=== PATIENT | male | born 1955 | race Caucasian/White ===

== ENCOUNTER 2016-08-06 14:33 | Inpatient (IN) ==
[2016-08-06] MEDS ORDERED: methylPREDNISolone SOD SUC 125 MG/2 ML VIAL IV STA (15:09)
[2016-08-06] MEDS ORDERED: ONDANSETRON ODT 4 MG TABLET PO STA (15:09)
[2016-08-06] MEDS ORDERED: FUROSEMIDE 100 MG/10 ML VIAL IV STA (15:09)
[2016-08-06] MEDS ORDERED: ONDANSETRON ODT 4 MG TABLET PO ONE (15:14)
[2016-08-06] MEDS ORDERED: FUROSEMIDE 100 MG/10 ML VIAL ONE (15:14)
[2016-08-06] MEDS ORDERED: methylPREDNISolone SOD SUC 125 MG/2 ML VIAL ONE (15:14)
[2016-08-06] MEDS ORDERED: ALBUTEROL 2.5 MG/3 ML NEB RESP TX SCH (15:30)
[2016-08-06 15:32] LABS: Basophils # 0.1 10*3/uL (0.0-0.2); Basophils % 1.1 % (0.0-0.8); Eosinophils # 0.8 10*3/uL (0.0-0.87); Eosinophils % 7.3 % (0.00-10.9); Hematocrit 49.8 VOL% (42.0-52.0); Hemoglobin 16.8 GM/DL (14.0-18.0); Immature Granulocytes % 0.8 %; Immature Granulocytes Absolute 0.09 #; Lymphocytes # 1.5 10*3/uL (1.4-4.0); Lymphocytes % 13.6 % (21.2-54.2); Mean Corpuscular HGB Conc 33.7 GM/DL (32-36); Mean Corpuscular Hemoglobin 32 PG (27-34); Mean Corpuscular Volume 93.4 FL (87-102); Mean Platelet Volume 9.8 FL (9.6-12.0); Monocytes # 1.2 10*3/uL (0.11-0.8); Monocytes % 10.4 % (1.7-12.7); Neutrophils # 7.5 10*3/uL (1.4-7.4); Neutrophils % 66.8 % (38.7-73.9); Platelet Count 150 T/CUMM (130-400); Red Blood Count 5.33 MC/CUMM (3.8-5.5); Red Cell Distribution Width 13.8 % (9.3-17.3); White Blood Count 11.3 T/CUMM (4-12)
[2016-08-06 15:40] LABS: Alanine Aminotransferase 29 U/L (16-61); Albumin 3.9 G/DL (3.4-5.0); Alkaline Phosphatase 87 U/L (45-117); Aspartate Amino Transferase 21 U/L (0-37); Blood Urea Nitrogen 14 MG/DL (7-18); Calcium 8.6 MG/DL (8.5-10.1); Glucose 96 MG/DL (74-106); Magnesium 2.2 MG/DL (1.8-2.4); Osmolality,Calculated 288.7 MOS/KG (273-304); Potassium 4.7 MMOL/L (3.5-5.1); Sodium 145 MMOL/L (136-145); Total Protein 7.2 G/DL (6.4-8.3); Troponin I Only < 0.015 NG/ML (0.00-0.045)
--- NOTE | 2016-08-06 15:56 | XRay Report ---
Portable chest Date: 08/06/2016 Clinical history: Shortness of breath Comparison: 06/23/2014 Technique: Portable AP sitting chest Findings: The heart is minimally enlarged with calcification in the aortic knob. Progressive parenchymal findings at the lung bases with small pleural effusions. Stable mediastinum with degenerative changes. Impression: Cardiomegaly with mild CHF and small pleural effusions. PROCEDURE INTERPRETED AT [facility] DEPARTMENT OF RADIOLOGY Final Report Signed by: Dr. Sandra Laws
[2016-08-06 17:10] LABS: Apearance,Urine CLEAR (Clear); Bilirubin,Urine Negative (Negative); Blood, Urine Negative (Negative); Glucose,Urine (UA) Negative (Negative); Ketones,Urine Negative (Negative); Mucus,Urine Occasional /LPF (Occasional); Nitrite,Urine Negative (Negative); Protein,Urine Negative; Urine Color Straw (Yellow); Urine Specific Gravity 1.004 (1.001-1.035); Urine Urobilinogen < 2.0 EU/DL (0.2-1.0); WBC,Urine <1 /HPF (0-6)
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
[2016-08-06] MEDS ORDERED: methylPREDNISolone SOD SUC 40 MG/1 ML VIAL IV SCH (17:45)
[2016-08-06] MEDS ORDERED: GLUCAGON 1 MG VIAL IM PRN (17:46)
[2016-08-06] MEDS ORDERED: DEXTROSE 50% 25 GM/50 ML VIAL IV PRN (17:46)
[2016-08-06] MEDS: LEVOFLOXACIN INJ 750 MG in PREMIX 1 EACH IV SCH (18:10)
[2016-08-06] MEDS: PHENYTOIN 100 MG/2 ML VIAL IV SCH (18:11)
[2016-08-06] MEDS: methylPREDNISolone SOD SUC 125 MG/2 ML VIAL IV SCH (18:16)
[2016-08-06] MEDS: INSULIN REGULAR 100 UNIT/ML SUBCUT SCH (18:21)
[2016-08-06] MEDS ORDERED: PROPOFOL 200 MG/20 ML VIAL IV ONE ×2 (18:48→18:57)
[2016-08-06] MEDS ORDERED: PROPOFOL 1,000 MG/100 ML BOTTLE IV ONE (18:48)
[2016-08-06] MEDS ORDERED: SUCCINYLCHOLINE 200 MG/10 ML VIAL ONE (18:52)
[2016-08-06] MEDS ORDERED: SUCCINYLCHOLINE 200 MG/10 ML VIAL IV ONE (18:57)
[2016-08-06] MEDS: PROPOFOL 1,000 MG/100 ML BOTTLE IV SCH ×2 (19:00→23:30)
[2016-08-06] MEDS ORDERED: PHENYTOIN ER 100 MG CAPSULE PO SCH (19:00)
[2016-08-06] MEDS ORDERED: ALBUTEROL/IPRATROPIUM 3 ML NEB RESP TX SCH (19:00)
--- NOTE | 2016-08-06 19:44 | XRay Report ---
Portable chest Date: 08/06/2016 Clinical history: Endotracheal tube placement Comparison: 08/06/2016 Technique: Portable AP supine chest Findings: The heart remains minimally enlarged. Endotracheal tube is in satisfactory position. Decreased diffuse parenchymal findings at the lung bases with minimal relative elevation of the right hemidiaphragm. Stable mediastinum and osseous structures. Impression: The endotracheal tube is in satisfactory position. Reduced atelectasis/edema at the lung bases. PROCEDURE INTERPRETED AT [facility] DEPARTMENT OF RADIOLOGY Final Report Signed by: Dr. Sandra Laws
[2016-08-06] MEDS ORDERED: SODIUM CHLORIDE 0.9% 500 ML IV ONE (19:58)
[2016-08-06] MEDS: ALBUTEROL/IPRATROPIUM 3 ML NEB RESP TX SCH ×2 (20:26→22:59)
[2016-08-06 20:51] LABS: ABG Base Excess 8.9 MMOL/L (-2.5-2.5); ABG HCO3 36.5 MMOL/L (20-26); ABG Oxygen Saturation 98.6 % (95-100); ABG PCO2 60.4 MM HG (35-48); ABG PH 7.399 (7.35-7.45); ABG PO2 132.4 MM HG (80-95); ABG TCO2 38.3 MMOL/L (23-27); Pt O2 Delivery Device Ventilator
--- NOTE | 2016-08-06 21:17 | Ultrasound Report ---
Exam: Bilateral lower extremity venous Doppler ultrasound Comparison: 06/18/2014 Clinical history: CHF, shortness of breath Technique: Duplex scan of the lower extremity veins using B-mode/grayscale scaled imaging and Doppler spectral analysis and color flow. Findings: Major venous structures of the lower extremities demonstrate a normal course and caliber. Normal color-flow study and spectral analysis. There is normal compression and augmentation of bilateral common femoral, superficial femoral and popliteal veins. The proximal bilateral greater saphenous veins appear to be patent. Impression: No evidence to suggest deep venous thrombosis within either lower extremity. Ultrasound images were captured and stored. PROCEDURE INTERPRETED AT [facility] DEPARTMENT OF RADIOLOGY Final Report Signed by: Dr. Sandra Laws
[2016-08-06] MEDS ORDERED: SODIUM CHLORIDE 0.9% 1,000 ML IV SCH (23:00)
[2016-08-07] MEDS: INSULIN REGULAR 100 UNIT/ML SUBCUT SCH ×4 (00:25→18:24)
[2016-08-07] MEDS: methylPREDNISolone SOD SUC 125 MG/2 ML VIAL IV SCH ×3 (00:26→12:21)
[2016-08-07] MEDS: SODIUM CHLORIDE 0.9% 1,000 ML IV SCH ×2 (03:35→17:08)
[2016-08-07 03:49] LABS: ABG Base Excess 6.4 MMOL/L (-2.5-2.5); ABG HCO3 30.2 MMOL/L (20-26); ABG PCO2 57.6 MM HG (35-48); ABG PH 7.379 (7.35-7.45); ABG TCO2 28.5 MMOL/L (23-27); Allen Test Positive; Pt O2 Delivery Device Ventilator
[2016-08-07] MEDS: ALBUTEROL/IPRATROPIUM 3 ML NEB RESP TX SCH ×6 (03:56→23:37)
[2016-08-07] MEDS: PROPOFOL 1,000 MG/100 ML BOTTLE IV SCH ×7 (04:20→22:30)
--- NOTE | 2016-08-07 07:53 | XRay Report ---
Portable chest Date: 08/07/2016 Clinical history: Intubation Comparison: 08/06/2016 Technique: Portable AP sitting chest Findings: The heart is minimally enlarged with stable support devices. Persistent diffuse parenchymal findings at the lung bases with stable mediastinum and osseous structures. Impression: No significant change in the appearance of the chest when compared to the previous exam. PROCEDURE INTERPRETED AT [facility] DEPARTMENT OF RADIOLOGY Final Report Signed by: Dr. Sandra Laws
--- NOTE | 2016-08-07 08:18 | EKG Report ---
Stationary ECG Study [facility] ER Test Date: 08/06/2016 3:20:27 PM Pat Name: PRECIOUS BLAKE Department: Room: 119 Gender: M Molder Fitting: : 1955 Requested by: Matt Cano Order Number: [id number] Reading MD: RICH STEPHENS Intervals Bryant Rate: 104 P: 80 [place]: 132 QRS: 244 QRSD: 88 T: 74 QT: 325 QTc: 385 Interpretive Statements SINUS TACHYCARDIA RIGHT AXIS DEVIATION INFERIOR MYOCARDIAL INFARCTION, PROBABLY OLD POOR R-WAVE PROGRESSION Electronically Signed On 08-07-16 12:04:40 CDT by RICH STEPHENS [email or web address]
[2016-08-07] MEDS ORDERED: THEOPHYLLINE ER (24 HR) 400 MG TABLET PO SCH (09:00)
[2016-08-07] MEDS ORDERED: PHENYTOIN ER 100 MG CAPSULE PO SCH (09:00)
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
[2016-08-07] MEDS: HYDROmorphone 2 MG/1 ML VIAL IV PRN ×3 (09:22→14:58)
[2016-08-07] MEDS: PANTOPRAZOLE 40 MG VIAL IV SCH (09:23)
[2016-08-07] MEDS: NICOTINE 21 MG/24 HR PATCH TRANSDERM SCH (09:23)
[2016-08-07 09:40] LABS: Basophils % 0.1 % (0.0-0.8); Eosinophils % 0.1 % (0.00-10.9); Hematocrit 45.2 VOL% (42.0-52.0); Hemoglobin 14.9 GM/DL (14.0-18.0); Immature Granulocytes % 0.4 %; Immature Granulocytes Absolute 0.03 #; Lymphocytes # 0.5 10*3/uL (1.4-4.0); Lymphocytes % 6.8 % (21.2-54.2); Mean Corpuscular Hemoglobin 31 PG (27-34); Mean Platelet Volume 9.7 FL (9.6-12.0); Monocytes # 0.4 10*3/uL (0.11-0.8); Monocytes % 4.8 % (1.7-12.7); Neutrophils # 6.7 10*3/uL (1.4-7.4); Neutrophils % 87.8 % (38.7-73.9); Platelet Count 114 T/CUMM (130-400); Red Blood Count 4.76 MC/CUMM (3.8-5.5); Red Cell Distribution Width 13.8 % (9.3-17.3); White Blood Count 7.7 T/CUMM (4-12)
--- NOTE | 2016-08-07 10:00 | Hospitalist Progress Note ---
Assessment and Plan (1) Respiratory failure, [id number] Status: Acute Assessment and plan: The patient is admitted to the hospital with exacerbation of COPD causing CO2 retention and hypoxemia. The patient has begun to improve on the ventilator. Dr. Souza is following him for pulmonary care and will make ventilator adjustments. The patient continues on IV antibiotics and inhaled beta agonist nebulized breathing therapies. Current Visit: Yes Qualifiers: Respiratory failure complication: hypoxia and hypercapnia Qualified Code(s) : J96.21 - Acute and chronic respiratory failure with hypoxia; J96.22 - Acute and chronic respiratory failure with hypercapnia (2) COPD exacerbation Status: Chronic Current Visit: Yes (3) Seizure disorder Status: Acute Current Visit: Yes Hospitalist: Subjective Interval history: The patient was admitted to the hospital with COPD exacerbation and respiratory failure. The patient continues on mechanical ventilation today. Gas exchange is improving and goal CO2 has been met. I coordinated care with Dr. Souza today. Exam - Constitutional Vitals: Period Temp Pulse Resp BP Sys/Centeno Pulse Ox Last 24 Hr 96.7 F-99.1 F 57-118 12-20 69-163/40-102 85-100 Exam: Constitutional System: Mild distress. No tremulousness. Orally intubated and mechanically ventilated Head: Normocephalic, atraumatic. Ears, Nose and Throat System: No evidence of Otitis or Mastoiditis. No epistaxis or discharge Eyes System: Pupils equal, round, and reactive. Extraocular muscles intact. Neck: Supple, without adenopathy, No jugular venous distention. No thyromegaly , neck mass, or prior surgery apparent. Respiratory System: Chest clear to auscultation. There is significant air trapping Cardiovascular System: Heart with regular rate and rhythm. No murmur. GI System: Abdomen soft, nontender. Normo active bowel sounds present. Musculoskeletal System: limbs with no pedal edema. Full distal pulses. Results - Labs CBC & BMP: 08/07/16 09:27 08/06/16 14:56 Lab Results: I have reviewed the past 24 hour labs Quality Measures - VTE Deep Vein Thrombosis/Pulmonary Embolism Present on Admission: No
[2016-08-07 10:01] LABS: Bilirubin,Total 0.5 MG/DL (0.2-1.0); Calcium 7.1 MG/DL (8.5-10.1); Osmolality,Calculated 295.4 MOS/KG (273-304); Potassium 3.4 MMOL/L (3.5-5.1); Risk Ratio 3.44; Total Protein 5.7 G/DL (6.4-8.3); VLDL CHOLESTEROL 26.8 MG/DL
[2016-08-07 10:12] LABS: Free T4 (Free Thyroxine) 0.99 NG/DL (0.76-1.46); Thyroid Stimulating Hormone 0.503 uIU/ml (0.358-3.74)
[2016-08-07] MEDS ORDERED: AMINOPHYLLINE 250 MG in SODIUM CHLORIDE 0.9% 100 ML IV ONE (11:07)
[2016-08-07] MEDS ORDERED: methylPREDNISolone SOD SUC 40 MG/1 ML VIAL ONE (12:23)
[2016-08-07] MEDS: methylPREDNISolone SOD SUC 40 MG/1 ML VIAL IV SCH ×2 (12:26→17:58)
--- NOTE | 2016-08-07 12:30 | ECHO Report ---
[facility] Exam Date: 08/07/2016 10:15 Referring Physician: Technologist: Elaine Kitchen RDCS Age: 61 Ht (in): Wt (lb): Gender: M Exam Location: [facility] Echo Indications: Acute and chronic respiratory failure with hypoxia, Shortness of breath, COPD, Chest pain, unspecified, KANDICE, Seizures, Nicotine dependence, cigarettes, uncomplicated BP: / HR: Rhythm: Sinus Technical Quality: Fair IMPRESSIONS EF 55%. Grade I/IV diastolic dysfunction (abnormal relaxation filling pattern), normal to mildly elevated filling pressures. Mildly increased right ventricular size. Moderately increased right atrial size. Moderately increased left atrial size. Morphologically normal mitral valve. No mitral valve regurgitation. Aortic valve sclerosis. No aortic valve regurgitation. Moderate tricuspid valve regurgitation. PAP 50-55 mmHG. Pulmonic valve not well visualized. Normal pericardium without effusion. Normal ascending aorta dimension. MEASUREMENTS (Male / Female) Normal Values 2D ECHO LV Diastolic Diameter PLAX 4.8 cm 4.2 - 5.9 / 3.9 - 5.3 cm LV Systolic Diameter PLAX 3.7 cm LV Fractional Shortening PLAX 24.5 % IVS Diastolic Thickness 1.3 cm 0.6 - 1.0 / 0.6 - 0.9 cm LVPW Diastolic Thickness 1.3 cm 0.6 - 1.0 / 0.6 - 0.9 cm RV Internal Dim ED PLAX 3.7 cm Aortic Root Diameter 3.2 cm LA Systolic Diameter LX 4.7 cm 3.0 - 4.0 / 2.7 - 3.8 cm DOPPLER TR Peak Velocity 297.0 cm/s TR Peak Gradient 35.3 mmHg FINDINGS Left Ventricle EF 55%.Grade I/IV diastolic dysfunction (abnormal relaxation filling pattern), normal to mildly elevated filling pressures. Right Ventricle Mildly increased right ventricular size. Right Atrium Moderately increased right atrial size. Left Atrium Moderately increased left atrial size. Mitral Valve Morphologically normal mitral valve. No mitral valve regurgitation. Aortic Valve Aortic valve sclerosis. No aortic valve regurgitation. Tricuspid Valve Morphologically normal tricuspid valve. Moderate tricuspid valve regurgitation. PAP 50-55 mmHG. Pulmonic Valve Pulmonic valve not well visualized. Pericardium Normal pericardium without effusion. Aorta Normal ascending aorta dimension. Alverto Basil (Electronically Signed) Final Date: 07 August 2016 12:29
[2016-08-07] MEDS: AMINOPHYLLINE 500 MG in SODIUM CHLORIDE 0.9% 480 ML IV SCH (14:42)
[2016-08-07] MEDS: PHENYTOIN 100 MG/2 ML VIAL IV SCH (17:31)
[2016-08-07] MEDS: LEVOFLOXACIN INJ 750 MG in PREMIX 1 EACH IV SCH (17:31)
[2016-08-08] MEDS: INSULIN REGULAR 100 UNIT/ML SUBCUT SCH ×5 (01:06→23:49)
[2016-08-08] MEDS: methylPREDNISolone SOD SUC 40 MG/1 ML VIAL IV SCH ×5 (01:07→23:57)
[2016-08-08] MEDS: PROPOFOL 1,000 MG/100 ML BOTTLE IV SCH ×6 (01:09→18:39)
[2016-08-08] MEDS: ALBUTEROL/IPRATROPIUM 3 ML NEB RESP TX SCH ×6 (03:44→23:46)
[2016-08-08 03:49] LABS: Allen Test Positive; Pt O2 Delivery Device Ventilator
[2016-08-08 03:50] LABS: ABG Base Excess 5.6 MMOL/L (-2.5-2.5); ABG HCO3 29.5 MMOL/L (20-26); ABG Oxygen Saturation 98.8 % (95-100); ABG PCO2 55.5 MM HG (35-48); ABG PH 7.381 (7.35-7.45); ABG TCO2 27.6 MMOL/L (23-27)
[2016-08-08] MEDS: SODIUM CHLORIDE 0.9% 1,000 ML IV SCH ×2 (08:22→20:19)
[2016-08-08] MEDS: NICOTINE 21 MG/24 HR PATCH TRANSDERM SCH (08:43)
[2016-08-08] MEDS: PANTOPRAZOLE 40 MG VIAL IV SCH (08:43)
--- NOTE | 2016-08-08 08:46 | XRay Report ---
History: Mechanical ventilation. COPD. CHF Date: 08/08/2016 Study: Chest x-ray AP portable Comparison exam: 08/07/2016 The supporting tubes are unchanged. There is stable mild cardiomegaly. The mediastinal contour is unchanged. The pulmonary vasculature is not engorged. The study was performed in shallow inspiration. There is some residual mild strandy atelectatic change in the right lung base, though this is slightly improved. There is no interval worsening. There is no gross pleural effusion. Osseous structures are similar. Impression: Mildly improved aeration in the right lung base with some persistent mild right basilar atelectasis. Otherwise unchanged PROCEDURE INTERPRETED AT [facility] DEPARTMENT OF RADIOLOGY Final Report Signed by: Dr. Christi Nelson
--- NOTE | 2016-08-08 08:48 | Hospitalist Progress Note ---
Assessment and Plan (1) Respiratory failure, [id number] Status: Acute Assessment and plan: The patient is admitted to the hospital with exacerbation of COPD causing CO2 retention and hypoxemia. The patient has begun to improve on the ventilator. Dr. Souza is following him for pulmonary care and will make ventilator adjustments. The patient continues on IV antibiotics and inhaled beta agonist nebulized breathing therapies. Current Visit: Yes Qualifiers: Respiratory failure complication: hypoxia and hypercapnia Qualified Code(s) : J96.21 - Acute and chronic respiratory failure with hypoxia; J96.22 - Acute and chronic respiratory failure with hypercapnia (2) COPD exacerbation Status: Chronic Current Visit: Yes (3) Seizure disorder Status: Acute Current Visit: Yes Hospitalist: Subjective Interval history: This is a 61-year-old man who was admitted on August 06 with severe COPD exacerbation. Upon arrival to the critical care area the patient developed progressive respiratory failure with hypercarbia requiring intubation. The patient's chest x-ray shows chronic scarring, COPD, and some cardiomegaly. Infiltrates are somewhat fluffy and diffuse. The patient continues on therapy for COPD including IV steroids, IV antibiotic, beta agonist nebulized breathing therapy, and intravenous theophylline. The patient remains on the ventilator as managed by the basin finish operator tig welder. Exam - Constitutional Vitals: Period Temp Pulse Resp BP Sys/Centeno Pulse Ox Last 24 Hr 96.4 F-97.2 F 14-66 8-61 87-121/53-80 92-100 Exam: Constitutional System: Mild distress. No tremulousness. Orally intubated and mechanically ventilated Head: Normocephalic, atraumatic. Ears, Nose and Throat System: No evidence of Otitis or Mastoiditis. No epistaxis or discharge Eyes System: Pupils equal, round, and reactive. Extraocular muscles intact. Neck: Supple, without adenopathy, No jugular venous distention. No thyromegaly , neck mass, or prior surgery apparent. Respiratory System: Chest clear to auscultation. There is significant air trapping Cardiovascular System: Heart with regular rate and rhythm. No murmur. GI System: Abdomen soft, nontender. Normo active bowel sounds present. Musculoskeletal System: limbs with no pedal edema. Full distal pulses. Results - Labs CBC & BMP: 08/07/16 09:27 08/07/16 08:25 Lab Results: I have reviewed the past 24 hour labs Quality Measures - VTE Deep Vein Thrombosis/Pulmonary Embolism Present on Admission: No
[2016-08-08] MEDS: POTASSIUM CHLORIDE 20 MEQ/15 ML UDCUP PER TUBE SCH ×3 (09:18→17:50)
--- NOTE | 2016-08-08 12:40 | Pulmonology Progress Note ---
<Sonido Kaur - Last Filed: 08/08/16 12:40> Exam (Progress Note) - Constitutional Vitals: Period Temp Pulse Resp BP Sys/Centeno Pulse Ox Last 24 Hr 96.4 F-97.2 F 14-67 8-61 87-121/53-80 92-100 Results - Labs CBC & BMP: 08/07/16 09:27 08/07/16 08:25 <Codey Horton - Last Filed: 08/08/16 18:19> Pulmonary - PN: Subj Interval history: This is a 61-year-old white male whom I saw in pulmonary consultation on 2016. He had been admitted through the emergency room profoundly short of breath and required intubation mechanical ventilation. My impressions were. 1. Acute on chronic respiratory failure for oxygen and carbon dioxide requiring intubation mechanical ventilation 2. History of obstructive sleep apnea 3. History of trach. Watch for tracheal stenosis. 4. COPD. 5. Tobacco abuse. Patient has refused to quit smoking. 6. Past history of nonischemic cardiomyopathy 2012. Evaluated by Dr. Chris Figueroa and followed by Dr. Andrew Huffman next #10 history of lower extremity surgery. Look for deep venous thrombophlebitis. 6.1. Echocardiogram done 08/06/2016 shows an ejection fraction of 55% with a grade 1/6 diastolic dysfunction. There is mild increase in right ventricular size and there is a moderate increase in the right atrial size. The left atrium is moderately increased in size. No mitral regurgitation. No aortic valve regurgitation. Moderate increased tricuspid regurgitation. Pulmonary artery pressures are 50-55 mmHg. 7. History of seizure disorder 8. See past history 08/08/2016. Today's chest x-ray shows cardiomegaly. Pulmonary arteries are top normal. Mediastinum is normal. There is some minimal bibasilar atelectasis. Lung morales are otherwise clear with no masses infiltrates or pulmonary edema. ABGs on mechanical ventilation with FiO2 of 50% show a pH 7.38, PCO2 55.5, PO2 122.0 and a bicarb of 29.3. Patient is on weaning protocol. And then reduce his FiO2 to 35%. I am also going to decrease the rate of mechanical ventilation I am going to allow his PCO twos to settle down around 55-60 which is what it will take him to get off the ventilator. No lab was ordered for today. There are no positive cultures. Patient's on IV Aminophyllin. His theophylline level is 5.3. Today I am going to add Diamox 250 mg IV push every 8 hours.He is on Solu-Medrol 80 IV push every 6 hours. Patient is also on Dilantin. There is a history of seizure disorder. Physical exam. Vital signs. See below Neurologic and psychiatric. Impossible. Patient is sedated. Face. Symmetrical. Lips and tongue are normal. Neck. Symmetrical. No meningismus. Lymphatics. No submandibular cervical supraclavicular or epitrochlear adenopathy Chest. Loose large airway congestion Heart. No gallop Abdomen. Nondistended. Only rare bowel sounds Lower extremities. No obvious deep venous thrombophlebitis. The remainder the physical exam is noncontributory Plan. 1. Weaning protocol. Plan to let the patient's PCO twos settled into the mid 50s since that is where he most likely lives. 08/08/2016, decrease FiO2. 2. Physical therapy protocol. 3. Deep venous thrombophlebitis prevention protocol 4. Agree with antibiotics 5. Cold agglutinins. 6. Legionella titer 7. Sputum for Gram stain culture and sensitivity. 8. Once he is off the ventilator this patient will probably need evaluation pulmonary function test. Specifically with a past history of trach we need to make sure he does not have tracheal stenosis. 9. See orders 10. 08/08/2016. Start Diamox 250 mg IV piggyback every 12. Continue to monitor theophylline level. Need to monitor electrolytes and other lab tests. Exam (Progress Note) - Constitutional Vitals: Period Temp Pulse Resp BP Sys/Centeno Pulse Ox Last 24 Hr 96.4 F-98.7 F 14-103 11-61 87-130/55-87 95-100 Results - Labs CBC & BMP: 08/07/16 09:27 08/07/16 08:25
[2016-08-08] MEDS: AMINOPHYLLINE 500 MG in SODIUM CHLORIDE 0.9% 480 ML IV SCH (15:04)
[2016-08-08] MEDS: PHENYTOIN 100 MG/2 ML VIAL IV SCH (17:50)
[2016-08-08] MEDS: LEVOFLOXACIN INJ 750 MG in PREMIX 1 EACH IV SCH (17:51)
[2016-08-09] MEDS: HYDROmorphone 2 MG/1 ML VIAL IV PRN ×4 (00:40→21:10)
[2016-08-09] MEDS: PROPOFOL 1,000 MG/100 ML BOTTLE IV SCH ×6 (02:48→23:42)
[2016-08-09] MEDS: ALBUTEROL/IPRATROPIUM 3 ML NEB RESP TX SCH ×6 (03:03→22:56)
[2016-08-09 03:07] LABS: ABG HCO3 26.1 MMOL/L (20-26); ABG Oxygen Saturation 97.3 % (95-100); ABG PCO2 45.2 MM HG (35-48); ABG PH 7.393 (7.35-7.45); ABG TCO2 23.2 MMOL/L (23-27); Allen Test Positive; Pt O2 Delivery Device Ventilator
[2016-08-09 05:10] LABS: Basophils % 0.1 % (0.0-0.8); Eosinophils % 0.1 % (0.00-10.9); Hematocrit 47.8 VOL% (42.0-52.0); Hemoglobin 15.8 GM/DL (14.0-18.0); Immature Granulocytes % 0.5 %; Immature Granulocytes Absolute 0.06 #; Lymphocytes # 0.6 10*3/uL (1.4-4.0); Lymphocytes % 4.5 % (21.2-54.2); Mean Corpuscular HGB Conc 33.1 GM/DL (32-36); Mean Corpuscular Hemoglobin 32 PG (27-34); Mean Platelet Volume 11.8 FL (9.6-12.0); Monocytes # 0.5 10*3/uL (0.11-0.8); Monocytes % 3.6 % (1.7-12.7); Neutrophils # 11.5 10*3/uL (1.4-7.4); Neutrophils % 91.2 % (38.7-73.9); Red Blood Count 4.98 MC/CUMM (3.8-5.5); Red Cell Distribution Width 14.4 % (9.3-17.3); White Blood Count 12.5 T/CUMM (4-12)
[2016-08-09 05:13] LABS: Platelet Count 62 T/CUMM (130-400)
[2016-08-09] MEDS: INSULIN REGULAR 100 UNIT/ML SUBCUT SCH ×4 (05:25→23:43)
[2016-08-09 05:26] LABS: Calcium 8.3 MG/DL (8.5-10.1); Osmolality,Calculated 293.7 MOS/KG (273-304); Phosphorous 2.7 MG/DL (2.5-4.9); Potassium 4.4 MMOL/L (3.5-5.1); Prealbumin 29.5 MG/DL (20-40)
[2016-08-09 05:31] LABS: Lymphocytes 3 % (20-55); Segmented Neutrophils 93 % (50-85); Total Cells Counted 100
[2016-08-09 05:32] LABS: Macrocytosis Slight; Platelet Estimate Decreased
[2016-08-09] MEDS: methylPREDNISolone SOD SUC 40 MG/1 ML VIAL IV SCH ×4 (05:39→23:52)
[2016-08-09 05:47] LABS: Calcium 8.4 MG/DL (8.5-10.1); Magnesium 2.3 MG/DL (1.8-2.4); Osmolality,Calculated 294.6 MOS/KG (273-304); Potassium 4.4 MMOL/L (3.5-5.1)
--- NOTE | 2016-08-09 08:11 | XRay Report ---
Exam: XR chest 1V portable Indication: Intubated Comparison study: 08/08/2016 Findings: Endotracheal tube is in similar position. Esophagogastric tube travels below the [id number]. There has been slight worsening of patchy basilar opacities when compared to prior. There is no pneumothorax. Impression: Slight worsening of basilar opacities may represent atelectasis although developing infiltrates are not excluded. Stable position of esophagogastric and endotracheal tubes. PROCEDURE INTERPRETED AT [facility] DEPARTMENT OF RADIOLOGY Final Report Signed by: Garo Renee
[2016-08-09] MEDS: PANTOPRAZOLE 40 MG VIAL IV SCH (09:42)
[2016-08-09] MEDS: NICOTINE 21 MG/24 HR PATCH TRANSDERM SCH (09:43)
[2016-08-09] MEDS: SODIUM CHLORIDE 0.9% 1,000 ML IV SCH ×2 (09:53→21:44)
--- NOTE | 2016-08-09 11:58 | Pulmonology Progress Note ---
Pulmonary - PN: Subj Interval history: Sonido Kaur, ANP-BC, GNP-BC, acting as scribe for Dr. Codey Horton This is a 61-year-old white male who we saw in initial pulmonary consultation on 08/07/2016. He had been admitted through the emergency room profoundly short of breath and required intubation and mechanical ventilation. At the time of our initial consult, our impressions were: 1. Acute on chronic respiratory failure for oxygen and carbon dioxide requiring intubation mechanical ventilation 2. History of obstructive sleep apnea 3. History of trach. Watch for tracheal stenosis. 4. COPD. 5. Tobacco abuse. Patient has refused to quit smoking. 6. Past history of nonischemic cardiomyopathy 2012. Evaluated by Dr. Chris Figueroa and followed by Dr. Andrew Huffman next #10 history of lower extremity surgery. Look for deep venous thrombophlebitis. 7. Echocardiogram done 08/06/2016 shows an ejection fraction of 55% with a grade 1/6 diastolic dysfunction. There is mild increase in right ventricular size and there is a moderate increase in the right atrial size. The left atrium is moderately increased in size. No mitral regurgitation. No aortic valve regurgitation. Moderate increased tricuspid regurgitation. Pulmonary artery pressures are 50-55 mmHg. 8. History of seizure disorder 9. See past history 08/08/2016. Today's chest x-ray shows cardiomegaly. Pulmonary arteries are top normal. Mediastinum is normal. There is some minimal bibasilar atelectasis. Lung morales are otherwise clear with no masses infiltrates or pulmonary edema. ABGs on mechanical ventilation with FiO2 of 50% show a pH 7.38, PCO2 55.5, PO2 122.0 and a bicarb of 29.3. Patient is on weaning protocol. And then reduce his FiO2 to 35%. I am also going to decrease the rate of mechanical ventilation I am going to allow his PCO twos to settle down around 55-60 which is what it will take him to get off the ventilator. No lab was ordered for today. There are no positive cultures. Patient's on IV Aminophyllin. His theophylline level is 5.3. Today I am going to add Diamox 250 mg IV push every 8 hours.He is on Solu-Medrol 80 IV push every 6 hours. Patient is also on Dilantin. There is a history of seizure disorder. 08/09/2016. Patient's nurse reports that he has been more aggressive and combative this morning. He has remained on the ventilator and presently was on stage II of the weaning protocol however, in light of this, we will asked that he be placed on a T-tube and ABGs be drawn at 1 PM. Those results will be called to us. Patient's chest x-ray shows bibasilar atelectasis. He has pulmonary hypertension as evidenced by his echocardiogram. We will start Norvasc 5 mg p.o. daily today. The patient remains on IV Aminophyllin. On chest exam he continues to have mild high-pitched peripheral wheezes. Theophylline level today is 5.7. We did not adjust Aminophyllin dose. He is getting daily theophylline levels. This patient's platelets have dropped to 62, 000. On review of his medications, no obvious culprit is seen. We will consult hematology for evaluation of this. Medications have been reviewed. Start Norvasc 5 mg p.o. daily for pulmonary hypertension. Labs been reviewed. White count is 12,500 with 91.2% segs; H&H 15.8/47.8; platelet count 62,000 (thrombocytopenia); creatinine 0.70, BUN 18, sodium 145, potassium 4.4, magnesium 2.3; BNP 103; theophylline level 5.7 ABGs this morning on an FiO2 of 35% and on mechanical ventilation showed a pH of 7.393, PCO2 45.2, PO2 89.0, bicarb 26.1, and oxygen saturation 97.3%. Exam (Progress Note) - Constitutional Vitals: Period Temp Pulse Resp BP Sys/Centeno Pulse Ox Last 24 Hr 97.1 F-98.7 F 54-103 11-20 104-140/66-89 93-100 Exam: Chest... See above; also with loose large airway congestion Heart no gallop Abdomen is nondistended with rare bowel sounds Extremities with nothing to suggest acute deep venous thrombophlebitis Psychiatric awake and aggressive Neurologic moves all 4 extremities Plan: Place the patient on T-tube and get ABGs at 1 PM. These will be called us. Consult hematology regarding his thrombocytopenia. Start Norvasc 5 mg p.o. daily for pulmonary hypertension. Continue IV Aminophyllin with daily theophylline levels. Chest x-ray, labs, and ABGs in the morning. See orders. Results - Labs CBC & BMP: 08/09/16 04:02 08/09/16 04:02
[2016-08-09] MEDS: amLODIPine 5 MG TABLET PO SCH (12:08)
--- NOTE | 2016-08-09 13:48 | Hospitalist Progress Note ---
Assessment and Plan - Time spent with patient Time spent with patient: Greater than 30 minutes (1) COPD exacerbation Status: Acute Assessment and plan: Continue ongoing treatment per Pulmonary recommendation. Current Visit: Yes (2) Respiratory failure, [id number] Status: Acute Assessment and plan: Patient remains intubated but not sedated. Monitor ABG p.r.n. Current Visit: Yes Qualifiers: Respiratory failure complication: hypoxia and hypercapnia Qualified Code(s) : J96.21 - Acute and chronic respiratory failure with hypoxia; J96.22 - Acute and chronic respiratory failure with hypercapnia (3) Seizure disorder Status: Acute Assessment and plan: Stable Current Visit: Yes (4) Thrombocytopenia Status: Acute Assessment and plan: monitor. No bleeding episodes now. Pulmonary has consulted Hematology. Follow Hematology recommendations. Current Visit: Yes (5) Pulmonary hypertension Status: Acute Assessment and plan: continue with Norvasc. Current Visit: Yes (6) History of obstructive sleep apnea Status: Acute Current Visit: Yes Hospitalist: Subjective Interval history: Patient seen and examined in the ICU. Occasionally gets agitated according to the nurse, and then his blood pressures climb up. He denies having any chest pain. Still intubated. ROS: 10-point review of systems was done and was negative except as mentioned above. Exam - Constitutional Vitals: Period Temp Pulse Resp BP Sys/Centeno Pulse Ox Last 24 Hr 97.3 F-98.7 F 54-115 8-23 104-140/70-94 93-100 General appearance: over weight - Eye Eye exam: Present: EOMI. Absent: periorbital swelling Pupils: Present: SNADIE - Neck Neck exam: Absent: lymphadenopathy - Respiratory Respiratory exam: Present: rhonchi - Cardiovascular Cardiovascular exam: Absent: diastolic murmur, systolic murmur - GI/Abdominal GI/Abdominal exam: Present: normal bowel sounds - Extremities Exam Extremities exam: Absent: edema - Neurological Exam Neurological exam: Present: alert, oriented X3 - Psychiatric Psychiatric exam: Present: normal mood Results - Labs CBC & BMP: 08/09/16 04:02 08/09/16 04:02 Quality Measures - VTE Deep Vein Thrombosis/Pulmonary Embolism Present on Admission: No
[2016-08-09] MEDS: AMINOPHYLLINE 500 MG in SODIUM CHLORIDE 0.9% 480 ML IV SCH (14:13)
[2016-08-09] MEDS: PHENYTOIN 100 MG/2 ML VIAL IV SCH (17:46)
[2016-08-09] MEDS: LEVOFLOXACIN INJ 750 MG in PREMIX 1 EACH IV SCH (17:46)
[2016-08-10] MEDS: PROPOFOL 1,000 MG/100 ML BOTTLE IV SCH (02:34)
[2016-08-10] MEDS: HYDROmorphone 2 MG/1 ML VIAL IV PRN (03:02)
[2016-08-10] MEDS: ALBUTEROL/IPRATROPIUM 3 ML NEB RESP TX SCH ×5 (03:14→20:46)
[2016-08-10 03:20] LABS: ABG Base Excess -2.7 MMOL/L (-2.5-2.5); ABG HCO3 24.3 MMOL/L (20-26); ABG Oxygen Saturation 95.9 % (95-100); ABG PCO2 50.6 MM HG (35-48); ABG PO2 85.2 MM HG (80-95); ABG TCO2 25.9 MMOL/L (23-27); Allen Test Positive; Pt O2 Delivery Device Ventilator
--- NOTE | 2016-08-10 04:11 | Pulmonology Progress Note ---
Pulmonary - PN: Subj Interval history: This is a 61-year-old white male whom I saw in pulmonary consultation on 2016. He had been admitted through the emergency room profoundly short of breath and required intubation mechanical ventilation. My impressions were. 1. Acute on chronic respiratory failure for oxygen and carbon dioxide requiring intubation mechanical ventilation 2. History of obstructive sleep apnea 3. History of trach. Watch for tracheal stenosis. 4. COPD. 5. Tobacco abuse. Patient has refused to quit smoking. 6. Past history of nonischemic cardiomyopathy 2012. Evaluated by Dr. Chris Figueroa and followed by Dr. Andrew Huffman next #10 history of lower extremity surgery. Look for deep venous thrombophlebitis. 6.1. Echocardiogram done 08/06/2016 shows an ejection fraction of 55% with a grade 1/6 diastolic dysfunction. There is mild increase in right ventricular size and there is a moderate increase in the right atrial size. The left atrium is moderately increased in size. No mitral regurgitation. No aortic valve regurgitation. Moderate increased tricuspid regurgitation. Pulmonary artery pressures are 50-55 mmHg. 7. History of seizure disorder 8. See past history 08/08/2016. Today's chest x-ray shows cardiomegaly. Pulmonary arteries are top normal. Mediastinum is normal. There is some minimal bibasilar atelectasis. Lung morales are otherwise clear with no masses infiltrates or pulmonary edema. ABGs on mechanical ventilation with FiO2 of 50% show a pH 7.38, PCO2 55.5, PO2 122.0 and a bicarb of 29.3. Patient is on weaning protocol. And then reduce his FiO2 to 35%. I am also going to decrease the rate of mechanical ventilation I am going to allow his PCO twos to settle down around 55-60 which is what it will take him to get off the ventilator. No lab was ordered for today. There are no positive cultures. Patient's on IV Aminophyllin. His theophylline level is 5.3. Today I am going to add Diamox 250 mg IV push every 8 hours.He is on Solu-Medrol 80 IV push every 6 hours. Patient is also on Dilantin. There is a history of seizure disorder. 08/10/2016. This patient had a T-tube trial on 08/09/2016. He was combative and refused to cooperate. This morning he indicates he is willing to cooperate. I placed him on a T-tube and will check his blood gases in about an hour. In the past his PCO2 has been approximately 60 when he was extubated. I anticipate that he will be at this range today. ABGs on mechanical ventilation with an FiO2 35% show a pH 7.30, PCO2 50.6, PO2 of 85.2 and a bicarb of 24. Chest x- ray shows bibasilar atelectasis. There are no positive cultures. This morning' s lab is pending. Physical exam. Vital signs. See below Neurologic and psychiatric. Impossible. Patient is sedated. Face. Symmetrical. Lips and tongue are normal. Neck. Symmetrical. No meningismus. Lymphatics. No submandibular cervical supraclavicular or epitrochlear adenopathy Chest. Loose large airway congestion Heart. No gallop Abdomen. Nondistended. Only rare bowel sounds Lower extremities. No obvious deep venous thrombophlebitis. The remainder the physical exam is noncontributory Plan. 1. Weaning protocol. Plan to let the patient's PCO twos settled into the mid 50s since that is where he most likely lives. 08/08/2016, decrease FiO2. 2. Physical therapy protocol. 3. Deep venous thrombophlebitis prevention protocol 4. Agree with antibiotics 5. Cold agglutinins. 6. Legionella titer 7. Sputum for Gram stain culture and sensitivity. 8. Once he is off the ventilator this patient will probably need evaluation pulmonary function test. Specifically with a past history of trach we need to make sure he does not have tracheal stenosis. 9. See orders 10. 08/08/2016. Start Diamox 250 mg IV piggyback every 12. Continue to monitor theophylline level. Need to monitor electrolytes and other lab tests. 11. 08/10/2016. Go to T-tube. Repeat ABGs. Possible extubation. See today's note above Exam (Progress Note) - Constitutional Vitals: Period Temp Pulse Resp BP Sys/Centeno Pulse Ox Last 24 Hr 97.4 F-97.9 F 54-115 8-24 91-140/55-94 92-100 Results - Labs CBC & BMP: 08/09/16 04:02 08/09/16 04:02
[2016-08-10 04:39] LABS: Allen Test Positive
[2016-08-10 04:40] LABS: ABG Base Excess -4.6 MMOL/L (-2.5-2.5); ABG HCO3 20.6 MMOL/L (20-26); ABG Oxygen Saturation 96.2 % (95-100); ABG PCO2 68.9 MM HG (35-48); ABG PO2 95.5 MM HG (80-95); ABG TCO2 22.9 MMOL/L (23-27)
[2016-08-10 04:42] LABS: ABG PH 7.196 (7.35-7.45)
[2016-08-10 04:44] LABS: Basophils % 0.1 % (0.0-0.8); Hematocrit 52.3 VOL% (42.0-52.0); Hemoglobin 16.7 GM/DL (14.0-18.0); Immature Granulocytes % 1.1 %; Immature Granulocytes Absolute 0.11 #; Lymphocytes # 0.8 10*3/uL (1.4-4.0); Lymphocytes % 7.4 % (21.2-54.2); Mean Corpuscular HGB Conc 31.9 GM/DL (32-36); Mean Corpuscular Hemoglobin 31 PG (27-34); Mean Platelet Volume 9.7 FL (9.6-12.0); Monocytes # 0.6 10*3/uL (0.11-0.8); Monocytes % 5.4 % (1.7-12.7); Neutrophils # 8.8 10*3/uL (1.4-7.4); Platelet Count 112 T/CUMM (130-400); Red Blood Count 5.39 MC/CUMM (3.8-5.5); Red Cell Distribution Width 14.5 % (9.3-17.3); White Blood Count 10.2 T/CUMM (4-12)
[2016-08-10] MEDS ORDERED: ALBUTEROL/IPRATROPIUM 3 ML NEB RESP TX PRN (05:10)
[2016-08-10 05:34] LABS: Allen Test Positive
[2016-08-10] MEDS: methylPREDNISolone SOD SUC 40 MG/1 ML VIAL IV SCH ×4 (05:34→23:54)
[2016-08-10 05:35] LABS: ABG Base Excess -3.5 MMOL/L (-2.5-2.5); ABG HCO3 21.3 MMOL/L (20-26); ABG Oxygen Saturation 90.6 % (95-100); ABG PCO2 60.8 MM HG (35-48); ABG PO2 65.8 MM HG (80-95); ABG TCO2 22.3 MMOL/L (23-27)
[2016-08-10] MEDS: INSULIN REGULAR 100 UNIT/ML SUBCUT SCH ×4 (06:24→23:53)
[2016-08-10] MEDS ORDERED: ALBUTEROL/IPRATROPIUM 3 ML NEB RESP TX SCH (07:00)
--- NOTE | 2016-08-10 07:58 | XRay Report ---
Exam: XR chest 1V portable Indication: COPD, CHF, intubated Comparison study: 08/09/2016 Findings: The endotracheal tube is not well visualized on the current study due to patient positioning. Esophagogastric tube is also noted in position but travels below the [id number] of the tip is not visualized. Cardiac silhouette is enlarged, similar prior. Perihilar and basilar interstitial and airspace opacities appear similar to prior. There is no pneumothorax. Small bilateral pleural effusions are not excluded. Osseous structures appear stable from prior.. Impression: Endotracheal tube is not well visualized due to patient positioning. Esophagogastric tube travels below the [id number]. Slight decrease in perihilar and basilar interstitial/airspace opacities may represent resolving atelectasis or infectious/inflammatory infiltrates. PROCEDURE INTERPRETED AT [facility] DEPARTMENT OF RADIOLOGY Final Report Signed by: Garo Renee
--- NOTE | 2016-08-10 08:18 | Oncology Consult Note ---
History of Present Illness Chief complaint: Thrombocytopenia History of present illness: I spent 10 minutes trying to access her computer when one was not available. They were all tied up. This patient was admitted with acute/chronic respiratory failure for oxygen and carbon dioxide requiring intubation mechanical ventilation and he has a history of obstructive sleep apnea and COPD. Mr. Vides is a 61 year old male had a platelet count yesterday of 62,000. Today it is 112,000. He has a normal white cell count 10,200 with a hemoglobin of 16.7. This patient gives no prior history of "free bleeding". He has never had problems with coagulation. He has never had prolonged bleeding after dental extractions and he has never bled into the joint. I should note that my ability to complete this consult note was disrupted by my inability to use a computer while in the CCU/ICU. My recommendation is that we check CBCs on a sequential basis daily on this patient for a while but if his platelet count is back up to 112,000 this may be due to his acute illness, medications or is also very possible that the patient' s platelets are clumping and this is lab error. I note that this recommendation has not been followed. I am ordering another CBC from August 11 in view of the fact that this patient is in the CCU and has a history of thrombocytopenia. Past medical history: This patient has been followed by Dr. Jeff Souza for quite some time for pulmonary problems including respiratory failure and chronic COPD and chronic persistent tobacco use. He continues to smoke heavily. He has a history of repeated episodes of respiratory failure. He also has a history of nonischemic cardiomyopathy. He has a history of hypertension, seizures and sleep apnea. Prior surgery includes hip surgery and the patient is required a tracheostomy in the past. Family history is positive for hypertension Social history is positive for heavy cigarette smoking on a daily basis. Physical examination: General: The patient is chronically and acutely ill appearing. He is morbidly obese. Eyes: Normal lids and conjunctivae. ENT: His oral mucosa and pharynx are normal. His trachea is midline. He has no neck masses. Lungs: Breath sounds are coarse throughout with a prolonged expiratory phase of respiration. Cardiovascular: His heart rhythm is regular without murmur, gallop or rub. Abdomen: There are no masses or organomegaly or ascites. Musculoskeletal: There is no focal muscle atrophy or bone or joint deformity. Neurologic: The patient has no focal neurologic deficits. Cranial nerves II through XII are intact. Nodes: I palpate no cervical, supraclavicular or axillary adenopathy. Skin: I see no petechiae. Impression: Thrombocytopenia that I suspect is multifactorial. I suspect that the patient actually may have drug related or medication related thrombocytopenia but also I suspect lab error in reporting the platelet levels. If there are other causes of the for this patient's thrombocytopenia, it is still not necessary to transfuse platelets because his platelet count is above 50,000 and actually was reported higher on the day of this consult note than it was on the day the consult was placed. I do not anticipate a detailed workup on this patient at this point. Home Medications Medication Instructions Recorded Confirmed Type Albuterol Inhaler [Proventil 2 puff INH Q4H PRN 08/06/16 08/06/16 History Inhaler] Carvedilol [Carvedilol] 3.125 mg PO BID 08/06/16 08/06/16 History Furosemide [Furosemide] 40 mg PO BID 08/06/16 08/10/16 History Ipratropium/Albuterol Inhaler 1 puff INH QID 08/06/16 08/06/16 History [Combivent Respimat Inhaler] Omeprazole [Omeprazole] 20 mg PO DAILY 08/06/16 08/06/16 History Phenytoin Sodium Extended 100 mg PO QPM 08/06/16 08/06/16 History Phenytoin Sodium Extended 300 mg PO QAM 08/06/16 08/06/16 History Spironolactone 25 mg PO DAILY 08/06/16 08/06/16 History Theophylline ER Tab (24 Hr) 400 mg PO DAILY 08/06/16 08/06/16 History Valsartan [Diovan] 80 mg PO DAILY 08/06/16 08/06/16 History Allergies Allergy/AdvReac Type Severity Reaction Status Date / Time banana Allergy ANAPHYLAXIS Verified 08/06/16 15:07 Sodium Pentathol Allergy ANAPHYLAXIS Uncoded 08/06/16 15:07 Medical,Surgical,& Family Hx - Medical History Cardio: History of: CHF, Hypertension, Cardiovascular Problems Neurology: History of: Seizures Respiratory: History of: COPD, Obstructive Sleep Apnea - Surgical History Orthopedic Surgeries: Surgical HX of;: Orthopedic Surgery (Back surgery) - Family History Family History: Reports;: Additional Family History (Both his parents lived into their 80s.) - Social History Smoking Status: Current every day smoker Frequency of Alcohol Use: None Type of Drug Use: None Exam - Constitutional Vitals: Period Temp Pulse Resp BP Sys/Centeno Pulse Ox Last 24 Hr 97.4 F-98.3 F 55-115 8-24 91-140/55-110 92-100 Results - Labs CBC & BMP: 08/10/16 04:34 08/09/16 04:02 Quality Measures - VTE Deep Vein Thrombosis/Pulmonary Embolism Present on Admission: No
[2016-08-10] MEDS: NICOTINE 21 MG/24 HR PATCH TRANSDERM SCH (10:14)
[2016-08-10] MEDS: PANTOPRAZOLE 40 MG VIAL IV SCH (10:15)
[2016-08-10] MEDS: amLODIPine 5 MG TABLET PO SCH (10:15)
[2016-08-10] MEDS: SODIUM CHLORIDE 0.9% 1,000 ML IV SCH (11:44)
[2016-08-10] MEDS: AMINOPHYLLINE 500 MG in SODIUM CHLORIDE 0.9% 480 ML IV SCH (15:15)
--- NOTE | 2016-08-10 16:46 | Hospitalist Progress Note ---
Assessment and Plan - Time spent with patient Time spent with patient: Less than 30 minutes (1) COPD exacerbation Status: Acute Assessment and plan: continue with bronchodilators, steroids, antibiotics. Follow Pulmonary recommendation. Current Visit: Yes (2) Respiratory failure, [id number] Status: Acute Assessment and plan: Patient was extubated today. Doing pretty well. Current Visit: Yes Qualifiers: Respiratory failure complication: hypoxia and hypercapnia Qualified Code(s) : J96.21 - Acute and chronic respiratory failure with hypoxia; J96.22 - Acute and chronic respiratory failure with hypercapnia (3) Seizure disorder Status: Acute Assessment and plan: Stable Current Visit: Yes (4) Thrombocytopenia Status: Acute Assessment and plan: Improving. Reviewed hematology's recommendations. Current Visit: Yes (5) Pulmonary hypertension Status: Acute Assessment and plan: continue with Norvasc. Current Visit: Yes (6) History of obstructive sleep apnea Status: Acute Current Visit: Yes Hospitalist: Subjective Interval history: Patient seen and examined. Extubated this afternoon. Denies chest pain or SOB; lying comfortably in bed thrombocytopenia is improving Exam - Constitutional Vitals: Period Temp Pulse Resp BP Sys/Centeno Pulse Ox Last 24 Hr 97.4 F-98.8 F 55-100 12-22 91-141/55-110 94-100 General appearance: under weight - Head Head exam: Present: normocephalic, atraumatic - Eye Eye exam: Present: EOMI Pupils: Present: SANDIE - Neck Neck exam: Absent: lymphadenopathy, thyromegaly - Respiratory Respiratory exam: Present: decreased breath sounds - Cardiovascular Cardiovascular exam: Absent: diastolic murmur, JVD, systolic murmur - GI/Abdominal GI/Abdominal exam: Present: normal bowel sounds - Neurological Exam Neurological exam: Present: alert, oriented X3 - Psychiatric Psychiatric exam: Present: normal affect, normal mood Results - Labs CBC & BMP: 08/10/16 04:34 08/09/16 04:02 Lab Results: I have reviewed the past 24 hour labs Quality Measures - VTE Deep Vein Thrombosis/Pulmonary Embolism Present on Admission: No
[2016-08-10] MEDS: LEVOFLOXACIN INJ 750 MG in PREMIX 1 EACH IV SCH (17:49)
[2016-08-10] MEDS: PHENYTOIN 100 MG/2 ML VIAL IV SCH (17:49)
[2016-08-11] MEDS: SODIUM CHLORIDE 0.9% 1,000 ML IV SCH ×2 (01:43→15:30)
[2016-08-11 04:18] LABS: ABG Base Excess -4.1 MMOL/L (-2.5-2.5); ABG HCO3 21.4 MMOL/L (20-26); ABG PCO2 40.6 MM HG (35-48); ABG PH 7.339 (7.35-7.45); ABG PO2 90.2 MM HG (80-95); ABG TCO2 22.6 MMOL/L (23-27)
[2016-08-11 04:19] LABS: ABG Oxygen Saturation 96.5 % (95-100)
[2016-08-11] MEDS: methylPREDNISolone SOD SUC 40 MG/1 ML VIAL IV SCH ×3 (06:58→17:31)
--- NOTE | 2016-08-11 07:10 | XRay Report ---
Exam: XR chest 1V portable Indication: extubated Comparison study: 08/10/2016 Findings: Endotracheal tube has been removed. Cardiac silhouette is enlarged, similar to prior. There are patchy basilar and perihilar interstitial opacities noted bilaterally. Upper lobe pulmonary vasculature appears slightly prominent. There is no pneumothorax. No significant pleural effusion is identified. Osseous structures appear stable.. Impression: Interval extubation with perihilar and basilar interstitial opacities likely representing a degree of atelectasis and/or underlying interstitial edema versus residual infectious/inflammatory infiltrates. PROCEDURE INTERPRETED AT [facility] DEPARTMENT OF RADIOLOGY Final Report Signed by: Garo Renee
--- NOTE | 2016-08-11 07:59 | Oncology Progress Note ---
Oncology Subjective PN Interval history: I will ordered a CBC stat for this morning. I had recommended following them sequentially but repeat studies have not been ordered so I am ordering a stat CBC now and I am ordering a comprehensive metabolic profile now. His platelet count is 107,000 today.. We will continue to monitor lab work but I do not anticipate changing any medications presently. Exam - Constitutional Vitals: Period Temp Pulse Resp BP Sys/Centeno Pulse Ox Last 24 Hr 97.7 F-98.8 F 74-100 10-22 99-146/52-93 90-98 Results - Labs CBC & BMP: 08/11/16 07:56 08/11/16 07:10 Quality Measures - VTE Deep Vein Thrombosis/Pulmonary Embolism Present on Admission: No
[2016-08-11 08:05] LABS: Albumin 3.1 G/DL (3.4-5.0); Bilirubin,Total 0.5 MG/DL (0.2-1.0); Calcium 8.2 MG/DL (8.5-10.1); Magnesium 2.3 MG/DL (1.8-2.4); Osmolality,Calculated 292.6 MOS/KG (273-304); Phosphorous 3.7 MG/DL (2.5-4.9); Potassium 4.5 MMOL/L (3.5-5.1); Prealbumin 40.9 MG/DL (20-40); Total Protein 6.2 G/DL (6.4-8.3)
[2016-08-11 08:15] LABS: Basophils % 0.1 % (0.0-0.8); Hematocrit 48.8 VOL% (42.0-52.0); Hemoglobin 16.3 GM/DL (14.0-18.0); Lymphocytes # 0.7 10*3/uL (1.4-4.0); Lymphocytes % 6.9 % (21.2-54.2); Mean Corpuscular HGB Conc 33.4 GM/DL (32-36); Mean Corpuscular Hemoglobin 31 PG (27-34); Mean Platelet Volume 9.8 FL (9.6-12.0); Monocytes # 0.8 10*3/uL (0.11-0.8); Monocytes % 7.7 % (1.7-12.7); Neutrophils # 8.3 10*3/uL (1.4-7.4); Neutrophils % 84.3 % (38.7-73.9); Platelet Count 107 T/CUMM (130-400); Red Blood Count 5.19 MC/CUMM (3.8-5.5); Red Cell Distribution Width 13.8 % (9.3-17.3); White Blood Count 9.8 T/CUMM (4-12)
[2016-08-11] MEDS: INSULIN REGULAR 100 UNIT/ML SUBCUT SCH ×2 (08:20→12:43)
[2016-08-11] MEDS: ALBUTEROL/IPRATROPIUM 3 ML NEB RESP TX SCH ×3 (08:20→19:34)
[2016-08-11] MEDS: NICOTINE 21 MG/24 HR PATCH TRANSDERM SCH (08:57)
[2016-08-11] MEDS: amLODIPine 5 MG TABLET PO SCH (08:58)
[2016-08-11] MEDS: PANTOPRAZOLE 40 MG VIAL IV SCH (08:58)
--- NOTE | 2016-08-11 09:16 | Pulmonology Progress Note ---
Pulmonary - PN: Subj Interval history: Patient is a 61-year-old man that has very severe COPD with respiratory failure. He has a long history of cigarette abuse. He apparently has required ventilatory support in the past. He came in with respiratory failure and was on the ventilator a few days this admission. He was extubated and doing fairly well. He says he is getting his breath okay and coughing okay. He denies chest pain. He says he is not having that much shortness of breath now Exam (Progress Note) - Constitutional Vitals: Period Temp Pulse Resp BP Sys/Centeno Pulse Ox Last 24 Hr 97.8 F-98.8 F 74-100 10-28 99-156/52-100 90-98 General appearance: no acute distress, over weight, other (He is alert and talking) - Head Head exam: Present: normal inspection, normocephalic - Eye Eye exam: Present: EOMI. Absent: scleral icterus Pupils: Present: SANDIE - ENT ENT exam: Present: normal exam - Neck Neck exam: Present: normal inspection. Absent: lymphadenopathy, thyromegaly - Respiratory Respiratory exam: Present: prolonged expiratory phase, rhonchi. Absent: accessory muscle use - Cardiovascular Cardiovascular exam: Present: regular rate and rhythm. Absent: gallop, systolic murmur - GI/Abdominal GI/Abdominal exam: Present: normal bowel sounds, soft. Absent: organomegaly, tenderness - Extremities Exam Extremities exam: Absent: calf tenderness, edema - Neurological Exam Neurological exam: Present: alert, oriented X3, CN II-XII intact - Psychiatric Psychiatric exam: Present: normal affect. Absent: anxious - Skin Skin exam: Present: warm, dry Results - Labs CBC & BMP: 08/11/16 07:56 08/11/16 07:10 Labs: His PO2 is 90 with a PCO2 of 40 and a pH of 7.34 - Diagnostic Findings Procedure: Chest x-ray: image reviewed by me, report reviewed by me (Chest x- ray shows minimal right lower lobe infiltrate.) Assessment and Plan (1) COPD exacerbation Status: Acute Assessment and plan: Patient has significant COPD and came in with an exacerbation. He is doing much better now. He seems to be breathing comfortably and can probably go to a regular room Current Visit: Yes (2) History of obstructive sleep apnea Status: Acute Assessment and plan: He should use his CPAP at night. Current Visit: Yes (3) Pulmonary hypertension Status: Acute Assessment and plan: He apparently has a history of pulmonary hypertension. His pressures are moderately severe. Current Visit: Yes (4) Respiratory failure, [id number] Status: Acute Assessment and plan: He came in with respiratory failure but is doing much better now. Current Visit: Yes Qualifiers: Respiratory failure complication: hypoxia and hypercapnia Qualified Code(s) : J96.21 - Acute and chronic respiratory failure with hypoxia; J96.22 - Acute and chronic respiratory failure with hypercapnia (5) Thrombocytopenia Status: Acute Assessment and plan: His thrombocytopenia is improving and his platelet count is over 100,000 Current Visit: Yes
--- NOTE | 2016-08-11 11:07 | Hospitalist Progress Note ---
Assessment and Plan - Time spent with patient Time spent with patient: Less than 30 minutes (1) COPD exacerbation Status: Acute Assessment and plan: continue with bronchodilators, steroids; Patient has completed 6 days of Levaquin. Follow Pulmonary recommendation. Current Visit: Yes (2) Respiratory failure, [id number] Status: Acute Assessment and plan: Patient was extubated yesterday. Saturating well on room air. Continue treatment for chronic obstructive pulmonary disease. Current Visit: Yes Qualifiers: Respiratory failure complication: hypoxia and hypercapnia Qualified Code(s) : J96.21 - Acute and chronic respiratory failure with hypoxia; J96.22 - Acute and chronic respiratory failure with hypercapnia (3) Seizure disorder Status: Acute Assessment and plan: Stable Current Visit: Yes (4) Thrombocytopenia Status: Acute Assessment and plan: Improving. Reviewed hematology's recommendations. Current Visit: Yes (5) Pulmonary hypertension Status: Acute Assessment and plan: continue with Norvasc. Current Visit: Yes (6) History of obstructive sleep apnea Status: Acute Assessment and plan: CPAP as needed. Current Visit: Yes Hospitalist: Subjective Interval history: This is a 61-year-old man with COPD, KANDICE and active smoker who was admitted on August 06 with severe COPD exacerbation. Upon arrival to the critical care area the patient developed progressive respiratory failure with hypercarbia requiring intubation. The patient's chest x-ray shows chronic scarring, COPD, and some cardiomegaly. Patient was seen in consult by Pulmonary who followed him throughout his stay in the Intensive Care Unit. He was only extubated yesterday. Patient was also seen by Hematolgy for thrombocytopenia which is improving Patient seen and examined by me today. He denied chest pain, shortness of breath , fever or chills. Will be transferred to the floor this morning. Exam - Constitutional Vitals: Period Temp Pulse Resp BP Sys/Centeno Pulse Ox Last 24 Hr 97.8 F-98.8 F 74-100 10-28 99-156/52-100 90-98 General appearance: no acute distress - Head Head exam: Present: normocephalic, atraumatic - Eye Eye exam: Present: EOMI Pupils: Present: SANDIE - Neck Neck exam: Absent: lymphadenopathy, thyromegaly - Respiratory Respiratory exam: Present: decreased breath sounds. Absent: rhonchi - Cardiovascular Cardiovascular exam: Absent: diastolic murmur, JVD, systolic murmur - GI/Abdominal GI/Abdominal exam: Present: normal bowel sounds, soft. Absent: mass - Extremities Exam Extremities exam: Absent: edema - Neurological Exam Neurological exam: Present: oriented X3 - Psychiatric Psychiatric exam: Present: normal affect, normal mood - Skin Skin exam: Present: normal color Results - Labs CBC & BMP: 08/11/16 07:56 08/11/16 07:10 Lab Results: I have reviewed the past 24 hour labs Quality Measures - VTE Deep Vein Thrombosis/Pulmonary Embolism Present on Admission: No
[2016-08-11] MEDS: AMINOPHYLLINE 500 MG in SODIUM CHLORIDE 0.9% 480 ML IV SCH (17:18)
[2016-08-11] MEDS: PHENYTOIN ER 100 MG CAPSULE PO SCH (20:54)
[2016-08-12] MEDS: methylPREDNISolone SOD SUC 40 MG/1 ML VIAL IV SCH (00:27)
[2016-08-12] MEDS: SODIUM CHLORIDE 0.9% 1,000 ML IV SCH (05:58)
[2016-08-12] MEDS: ALBUTEROL/IPRATROPIUM 3 ML NEB RESP TX SCH ×6 (07:02→19:20)
[2016-08-12] MEDS: amLODIPine 5 MG TABLET PO SCH (08:16)
[2016-08-12] MEDS: PANTOPRAZOLE 40 MG TABLET PO SCH (08:18)
[2016-08-12] MEDS: predniSONE 20 MG TABLET PO SCH (08:18)
--- NOTE | 2016-08-12 08:28 | Oncology Progress Note ---
Oncology Subjective PN Interval history: It is 8:28 AM in this patient's lab work this morning has not returned. Exam - Constitutional Vitals: Period Temp Pulse Resp BP Sys/Centeno Pulse Ox Last 24 Hr 97.5 F-99.7 F 55-95 16-28 120-162/70-99 87-100 Results - Labs CBC & BMP: 08/11/16 07:56 08/11/16 07:10 Quality Measures - VTE Deep Vein Thrombosis/Pulmonary Embolism Present on Admission: No
[2016-08-12 08:39] LABS: Albumin 3.4 G/DL (3.4-5.0); Bilirubin,Total 0.5 MG/DL (0.2-1.0); Calcium 8.5 MG/DL (8.5-10.1); Potassium 4.3 MMOL/L (3.5-5.1); Total Protein 6.4 G/DL (6.4-8.3)
[2016-08-12 08:44] LABS: Basophils % 0.2 % (0.0-0.8); Hematocrit 49.4 VOL% (42.0-52.0); Hemoglobin 16.8 GM/DL (14.0-18.0); Immature Granulocytes % 1.1 %; Lymphocytes # 0.6 10*3/uL (1.4-4.0); Lymphocytes % 5.6 % (21.2-54.2); Mean Corpuscular Hemoglobin 32 PG (27-34); Mean Corpuscular Volume 93.2 FL (87-102); Mean Platelet Volume 10.8 FL (9.6-12.0); Monocytes # 0.8 10*3/uL (0.11-0.8); Monocytes % 7.5 % (1.7-12.7); Neutrophils # 9.2 10*3/uL (1.4-7.4); Neutrophils % 85.6 % (38.7-73.9); Red Cell Distribution Width 13.8 % (9.3-17.3); White Blood Count 10.7 T/CUMM (4-12)
[2016-08-12 08:45] LABS: Immature Granulocytes Absolute 0.12 #; Platelet Count 97 T/CUMM (130-400)
[2016-08-12] MEDS ORDERED: PHENYTOIN ER 100 MG CAPSULE PO SCH (09:00)
[2016-08-12 09:02] LABS: Magnesium 2.4 MG/DL (1.8-2.4)
[2016-08-12 09:08] LABS: Platelet Estimate Decreased
--- NOTE | 2016-08-12 09:58 | Pulmonology Progress Note ---
Pulmonary - PN: Subj Interval history: Patient is a 61-year-old man that has very severe COPD with respiratory failure. He has a long history of cigarette abuse. He apparently has required ventilatory support in the past. He came in with respiratory failure and was on the ventilator a few days this admission. He was extubated and doing fairly well. He says he is getting his breath okay and coughing okay. He denies chest pain. He is walking around his room and feels better. He says that shortness of breath is better and he wants to go home soon. Will change him to oral antibiotics and theophylline Exam (Progress Note) - Constitutional Vitals: Period Temp Pulse Resp BP Sys/Centeno Pulse Ox Last 24 Hr 97.5 F-99.7 F 55-95 16-24 120-162/70-102 87-100 Exam: General appearance: no acute distress, over weight, other (He is alert and talking, he is not having any distress although he is chronically ill-appearing) - Head Head exam: Present: normal inspection, normocephalic - Eye Eye exam: Present: EOMI. Absent: scleral icterus Pupils: Present: SANDIE - ENT ENT exam: Present: normal exam - Neck Neck exam: Present: normal inspection. Absent: lymphadenopathy, thyromegaly - Respiratory Respiratory exam: Present: He has very distant breath sounds with prolonged expiration and minimal rhonchi. - Cardiovascular Cardiovascular exam: Present: regular rate and rhythm. Absent: gallop, systolic murmur - GI/Abdominal GI/Abdominal exam: Present: normal bowel sounds, soft. Absent: organomegaly, tenderness - Extremities Exam Extremities exam: Absent: calf tenderness, edema - Neurological Exam Neurological exam: Present: alert, oriented X3, CN II-XII intact - Psychiatric Psychiatric exam: Present: normal affect. Absent: anxious - Skin Skin exam: Present: warm, dry Results - Labs CBC & BMP: 08/12/16 07:59 08/12/16 07:59 Assessment and Plan (1) COPD exacerbation Status: Acute Assessment and plan: Patient has significant COPD and came in with an exacerbation. He is doing much better now. He is walking around and feels like his breathing is better. Will adjust his medicines. Current Visit: Yes (2) History of obstructive sleep apnea Status: Acute Assessment and plan: He should use his CPAP at night. Current Visit: Yes (3) Pulmonary hypertension Status: Acute Assessment and plan: He apparently has a history of pulmonary hypertension. His pressures are moderately severe. This is a secondary pulmonary hypertension. Current Visit: Yes (4) Respiratory failure, [id number] Status: Acute Assessment and plan: He came in with respiratory failure but is doing much better now. He says he is breathing much better now Current Visit: Yes Qualifiers: Respiratory failure complication: hypoxia and hypercapnia Qualified Code(s) : J96.21 - Acute and chronic respiratory failure with hypoxia; J96.22 - Acute and chronic respiratory failure with hypercapnia (5) Thrombocytopenia Status: Acute Assessment and plan: His thrombocytopenia is stable with a platelet count of 97,000 Current Visit: Yes
[2016-08-12] MEDS: THEOPHYLLINE ER (24 HR) 400 MG CAPSULE PO SCH (10:28)
[2016-08-12] MEDS ORDERED: ALBUTEROL 2.5 MG/3 ML NEB RESP TX PRN (11:36)
--- NOTE | 2016-08-12 11:40 | Hospitalist Progress Note ---
Assessment and Plan (1) HTN (hypertension) Status: Chronic Assessment and plan: resume home meds. hold coreg due to beta paula effect on lungs Current Visit: Yes Qualifiers: Hypertension type: essential hypertension Qualified Code(s): I10 - Essential (primary) hypertension (2) COPD exacerbation Status: Chronic Assessment and plan: continue abx, bronchodilators and steroids Current Visit: Yes (3) Respiratory failure, [id number] Status: Acute Current Visit: Yes Qualifiers: Respiratory failure complication: hypoxia and hypercapnia Qualified Code(s) : J96.21 - Acute and chronic respiratory failure with hypoxia; J96.22 - Acute and chronic respiratory failure with hypercapnia (4) Thrombocytopenia Status: Acute Assessment and plan: monitor platelets Current Visit: Yes (5) History of obstructive sleep apnea Status: Acute Assessment and plan: will need a sleep study and cpap. Current Visit: Yes Hospitalist: Subjective Interval history: Patient seen and examined. Admitted with acute on chronic respiratory failure requiring intubation and mechanical ventilation. He has been extubated and moved to the floor. He is feeling much better and will gregoryey be able to go home in the am. He offers no complaints. Exam - Constitutional Vitals: Period Temp Pulse Resp BP Sys/Centeno Pulse Ox Last 24 Hr 97.5 F-99.7 F 55-95 17-24 120-162/70-102 87-98 General appearance: no acute distress - Head Head exam: Present: normal inspection, normocephalic, atraumatic - Eye Eye exam: Present: EOMI Pupils: Present: SANDIE - ENT ENT exam: Present: normal exam - Respiratory Respiratory exam: Present: decreased breath sounds - Cardiovascular Cardiovascular exam: Present: regular rate and rhythm - GI/Abdominal GI/Abdominal exam: Present: normal bowel sounds - Extremities Exam Extremities exam: Present: edema - Neurological Exam Neurological exam: Present: alert, oriented X3 - Psychiatric Psychiatric exam: Present: normal affect, normal mood - Skin Skin exam: Present: normal color, warm, dry Results - Labs CBC & BMP: 08/12/16 07:59 08/12/16 07:59 Lab Results: I have reviewed the past 24 hour labs Quality Measures - VTE Deep Vein Thrombosis/Pulmonary Embolism Present on Admission: No
[2016-08-12] MEDS: VALSARTAN 80 MG TABLET PO SCH (13:47)
--- NOTE | 2016-08-12 14:41 | Oncology Progress Note ---
Oncology Subjective PN Interval history: Although the patient's platelet count is below 100,000, is still well within the safe range. I have no plans for further evaluation of it as long as it remains above 50,000. He is on several medications that could cause thrombocytopenia and I would consider stopping some of them before I did anything else to evaluate him. Please consult me again if needed. Exam - Constitutional Vitals: Period Temp Pulse Resp BP Sys/Centeno Pulse Ox Last 24 Hr 97.9 F-99.7 F 55-95 18-24 120-162/70-102 88-98 Results - Labs CBC & BMP: 08/12/16 07:59 08/12/16 07:59 Quality Measures - VTE Deep Vein Thrombosis/Pulmonary Embolism Present on Admission: No
[2016-08-12] MEDS: PHENYTOIN ER 100 MG CAPSULE PO SCH (21:01)
[2016-08-12] MEDS: FUROSEMIDE 40 MG TABLET PO SCH (21:01)
[2016-08-13] MEDS: ALBUTEROL/IPRATROPIUM 3 ML NEB RESP TX SCH (06:53)
--- NOTE | 2016-08-13 08:15 | Pulmonology Progress Note ---
Pulmonary - PN: Subj Interval history: Patient is a 61-year-old man that has very severe COPD with respiratory failure. He has a long history of cigarette abuse. He apparently has required ventilatory support in the past. He came in with respiratory failure and was on the ventilator a few days this admission. He was extubated and doing fairly well. He says he is getting his breath okay and coughing okay. He denies chest pain. He said he had a good night last night and is breathing better. His cough and congestion are better. He feels like he can go home at any time. Exam (Progress Note) - Constitutional Vitals: Period Temp Pulse Resp BP Sys/Centeno Pulse Ox Last 24 Hr 97.5 F-99.1 F 70-94 16-22 134-163/66-90 91-99 Exam: General appearance: no acute distress, over weight, other (He is alert and talking, he is not having any distress although he is chronically ill-appearing) - Head Head exam: Present: normal inspection, normocephalic - Eye Eye exam: Present: EOMI. Absent: scleral icterus Pupils: Present: SANDIE - ENT ENT exam: Present: normal exam - Neck Neck exam: Present: normal inspection. Absent: lymphadenopathy, thyromegaly - Respiratory Respiratory exam: Present: He has very distant breath sounds with prolonged expiration and minimal rhonchi. He says he does not need oxygen at present. - Cardiovascular Cardiovascular exam: Present: regular rate and rhythm. Absent: gallop, systolic murmur - GI/Abdominal GI/Abdominal exam: Present: normal bowel sounds, soft. Absent: organomegaly, tenderness - Extremities Exam Extremities exam: Absent: calf tenderness, edema - Neurological Exam Neurological exam: Present: alert, oriented X3, CN II-XII intact - Psychiatric Psychiatric exam: Present: normal affect. Absent: anxious - Skin Skin exam: Present: warm, dry Results - Labs CBC & BMP: 08/12/16 07:59 08/12/16 07:59 Assessment and Plan (1) COPD exacerbation Status: Acute Assessment and plan: Patient has significant COPD and came in with an exacerbation. He is doing much better now. He says he feels better. He says he can go home in any time. He can probably taper his steroids and continue with bronchodilator therapy at home Current Visit: Yes (2) History of obstructive sleep apnea Status: Acute Assessment and plan: He should use his CPAP at night. Current Visit: Yes (3) Pulmonary hypertension Status: Acute Assessment and plan: He apparently has a history of pulmonary hypertension. His pressures are moderately severe. This is a secondary pulmonary hypertension. Current Visit: Yes (4) Respiratory failure, [id number] Status: Acute Assessment and plan: He came in with respiratory failure but is doing much better now. He says he is breathing much better now. He is walking around without any problems now. Current Visit: Yes Qualifiers: Respiratory failure complication: hypoxia and hypercapnia Qualified Code(s) : J96.21 - Acute and chronic respiratory failure with hypoxia; J96.22 - Acute and chronic respiratory failure with hypercapnia (5) Thrombocytopenia Status: Acute Assessment and plan: His thrombocytopenia is stable with a platelet count of 97,000 Current Visit: Yes
[2016-08-13] MEDS: predniSONE 20 MG TABLET PO SCH (08:57)
[2016-08-13] MEDS: VALSARTAN 80 MG TABLET PO SCH (08:57)
[2016-08-13] MEDS: amLODIPine 5 MG TABLET PO SCH (08:58)
[2016-08-13] MEDS: THEOPHYLLINE ER (24 HR) 400 MG CAPSULE PO SCH (08:58)
[2016-08-13] MEDS: PANTOPRAZOLE 40 MG TABLET PO SCH (08:59)
[2016-08-13] MEDS: FUROSEMIDE 40 MG TABLET PO SCH (09:00)
[2016-08-13] MEDS ORDERED: SPIRONOLACTONE 25 MG TABLET PO SCH (09:00)
--- NOTE | 2016-08-13 10:01 | Discharge Summary ---
Hospital Course - Hospital Course Hospital Course: History of present illness: This is a 61 year-old middle aged male that presented to the ED with a chief complaint of shortness of breath and chest pain. At the time of presentation, he was noted to be in severe respiratory distress. He was anxious and working very heard to breathe. He was given multiple nebulizer treatments which rendered little relief. His is at bedside. She reports his onset of symptoms about 2 days ago. She reports that he "smokes like a train" all day long and has been advised in the past to stop by his doctors; in which he has failed to comply with their recommendations. She reports a medical history positive for CHF, COPD, and seizure disorder. Due the severity of his current respiratory status, he will be admitted to ICU. He was seen in consultation by pulmonary as well as by oncology for thrombocytopenia. He improved and subsequently was extubated. He was treated with antibiotics nebulizers and steroids. Overall he feels much better and at this time after being on the regular floor for few days is being discharged home. He's been counseled again regarding smoking and he plans to quit. - Time spent with patient Time with patient DS: Greater than 30 minutes Discharge Plan - Discharge Data Condition at Discharge: Stable Discharge Diet: advance to your usual diet Activity: resume usual activities as tolerated - Discharge Medications New predniSONE TAB [PredniSONE] 20 mg PO DAILY #20 tablet Continue Omeprazole 20 mg PO DAILY Spironolactone 25 mg PO DAILY Carvedilol 3.125 mg PO BID Theophylline ER Tab (24 Hr) 400 mg PO DAILY Phenytoin Sodium Extended 300 mg PO QAM Phenytoin Sodium Extended 100 mg PO QPM Ipratropium/Albuterol Inhaler [Combivent Respimat Inhaler] 1 puff INH QID Valsartan [Diovan] 80 mg PO DAILY Furosemide 40 mg PO BID Albuterol Inhaler [Proventil Inhaler] 2 puff INH Q4H PRN PRN Reason: Shortness Of Breath/Wheezing - Follow Up or Referral Follow Up: Irvin De Luna MD [Physician] - 2 Weeks - Forms/Instructions Exam - Constitutional Vitals: Period Temp Pulse Resp BP Sys/Centeno Pulse Ox Last 24 Hr 97.5 F-99.1 F 70-94 16-22 134-163/66-90 91-99 Discharge Results Procedures and tests throughout hospitalization: Pending Orders 08/15/16 04:00 Basic Metabolic Panel MOTH Magnesium MOTH Phosphorous MOTH Labs on day of discharge: Labs from last 24 hours 08/13/16 08/12/16 08/12/16 08:07 19:28 15:54 POC Glucose 72 L 141 H 117 H 08/12/16 12:11 POC Glucose 139 H DS: Provider Date of admission: 08/06/16 17:10 Primary care physician: . No PCP Attending physician on admission: Kin Velasquez MD Consults: 08/06/16 17:48 Consult to Pharmacy [CONS] Routine Reason for Pharmacy Consult: Adjust Meds Renal Funct 08/06/16 18:05 Consult to Physician [CONS] Routine Comment: Consulting Provider: Codey Horton When should Consulting Provider be notified: Now 08/07/16 11:12 Consult to Dietitian [CONS] Routine Reason for Dietitian: TF-Initiate/Manage 08/09/16 11:12 Consult to Physician [CONS] Routine Comment: thrombocytopenia; unknown reason Consulting Provider: José Miguel Lange Person Notified: Home Lange's office Date Notified: 08/09/16 Time Notified: 11:38 Consult Notification Comment: Faxed face sheet & order per her request. 08/10/16 08:01 Consult to Physical Therapy [CONS] Routine Reason for Physical Therapy: Evaluate and Treat Weakness Discharging clinician: Jacob Yousif MD
[2016-08-13 10:40] VITALS: BP 115/72
== END 2016-08-13 10:36 | disposition home or self-care (01) | DRG 208 ==
LOC: N.ED 14:33 → SUATTDRO 17:10 → N.EDINP 17:10 → N.CC 17:44 → N.2E 08-11 12:58
PROVIDERS: ADMIT Internal Medicine; ATTEND Internal Medicine

== ENCOUNTER 2016-11-26 07:42 | Inpatient (IN) ==
[2016-11-26] MEDS ORDERED: ALBUTEROL 2.5 MG/3 ML NEB RESP TX STA ×2 (08:05→09:48)
[2016-11-26] MEDS ORDERED: cefTRIAXone 1,000 MG in SODIUM CHLORIDE 0.9% 100 ML IV STA (08:05)
[2016-11-26] MEDS ORDERED: AZITHROMYCIN INJ 500 MG in SODIUM CHLORIDE 0.9% 250 ML IV STA (08:05)
[2016-11-26] MEDS ORDERED: methylPREDNISolone SOD SUC 125 MG/2 ML VIAL IV STA (08:05)
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
[2016-11-26 08:13] LABS: Basophils # 0.1 10*3/uL (0.0-0.2); Basophils % 1.4 % (0.0-0.8); Eosinophils # 0.8 10*3/uL (0.0-0.87); Eosinophils % 8.7 % (0.00-10.9); Hemoglobin 15.8 GM/DL (14.0-18.0); Immature Granulocytes % 1.7 %; Immature Granulocytes Absolute 0.15 #; Lymphocytes % 10.8 % (21.2-54.2); Mean Corpuscular HGB Conc 35.1 GM/DL (32-36); Mean Corpuscular Hemoglobin 31 PG (27-34); Mean Corpuscular Volume 89.5 FL (87-102); Mean Platelet Volume 9.5 FL (9.6-12.0); Monocytes # 0.6 10*3/uL (0.11-0.8); Monocytes % 6.6 % (1.7-12.7); Neutrophils # 6.4 10*3/uL (1.4-7.4); Neutrophils % 70.8 % (38.7-73.9); Platelet Count 157 T/CUMM (130-400); Red Blood Count 5.03 MC/CUMM (3.8-5.5); Red Cell Distribution Width 13.4 % (9.3-17.3); White Blood Count 9.1 T/CUMM (4-12)
[2016-11-26] MEDS ORDERED: methylPREDNISolone SOD SUC 125 MG/2 ML VIAL ONE (08:14)
--- NOTE | 2016-11-26 08:52 | XRay Report ---
History: Shortness of breath Date: 11/26/2016 Study: Chest x-ray AP portable Comparison exam: September 09, 2016 chest x-ray The cardiac silhouette is not enlarged. There is no mediastinal mass. The pulmonary vasculature is upper normal. There is some mild asymmetric strandy and hazy opacity in the right lung base. Chronic lung changes are noted otherwise. There is no obvious acute pleural effusion of significance. The osseous structures are unchanged. Impression: Mild right basilar atelectasis/infiltrate which could represent pneumonia PROCEDURE INTERPRETED AT [facility] DEPARTMENT OF RADIOLOGY Final Report Signed by: Dr. Christi Nelson
[2016-11-26] MEDS ORDERED: cefTRIAXone 1,000 MG VIAL ONE (08:57)
[2016-11-26] MEDS ORDERED: SODIUM CHLORIDE 0.9% 100 ML IV ONE (08:57)
--- NOTE | 2016-11-26 09:00 | EKG Report ---
Stationary ECG Study [facility] ER Test Date: 11/26/2016 8:02:10 AM Pat Name: PRECIOUS BLAKE Department: Room: Gender: M Net Mender: : 1955 Requested by: Félix Carreno Order Number: [id number] Reading MD: RICH STEPHENS Intervals Byars Rate: 92 P: 86 LA: 148 QRS: 241 QRSD: 93 T: 77 QT: 354 QTc: 404 Interpretive Statements SINUS RHYTHM RIGHT AXIS DEVIATION INCOMPLETE RIGHT BUNDLE BRANCH BLOCK Electronically Signed On 11-27-16 12:52:47 CDT by RICH STEPHENS [email or web address]
[2016-11-26 09:02] LABS: Alanine Aminotransferase 26 U/L (16-61); Albumin 4.1 G/DL (3.4-5.0); Alkaline Phosphatase 82 U/L (45-117); Aspartate Amino Transferase 20 U/L (0-37); Bilirubin,Total < 0.39 MG/DL (0.2-1.0); Blood Urea Nitrogen 9 MG/DL (7-18); Calcium 8.6 MG/DL (8.5-10.1); Glucose 103 MG/DL (74-106); Osmolality,Calculated 275.5 MOS/KG (273-304); Potassium 4.3 MMOL/L (3.5-5.1); Sodium 139 MMOL/L (136-145); Total Protein 7.5 G/DL (6.4-8.3); Troponin I Only < 0.015 NG/ML (0.00-0.045)
[2016-11-26] MEDS ORDERED: AZITHROMYCIN 500 MG VIAL IV ONE (10:21)
[2016-11-26] MEDS ORDERED: ALBUTEROL 2.5 MG/3 ML NEB RESP TX PRN (11:09)
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
[2016-11-26 12:15] LABS: Phenytoin (Dilantin) 2.4 UG/ML (10-20); Theophylline < 2.0 UG/ML (10-20)
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
[2016-11-26] MEDS ORDERED: ALBUTEROL/IPRATROPIUM 3 ML NEB RESP TX SCH (13:00)
[2016-11-26 13:24] LABS: Free T4 (Free Thyroxine) 0.99 NG/DL (0.76-1.46); Thyroid Stimulating Hormone 0.709 uIU/ml (0.358-3.74)
[2016-11-26] MEDS: NICOTINE 21 MG/24 HR PATCH TRANSDERM SCH (13:37)
[2016-11-26] MEDS: LEVOFLOXACIN INJ 750 MG in PREMIX 1 EACH IV SCH (13:37)
[2016-11-26] MEDS: CARVEDILOL 3.125 MG TABLET PO SCH ×2 (13:37→21:33)
[2016-11-26] MEDS: PIPERACILLIN/TAZOBACTAM 3,375 MG in SODIUM CHLORIDE 0.9% 100 ML IV SCH ×2 (15:41→21:33)
[2016-11-26] MEDS: methylPREDNISolone SOD SUC 40 MG/1 ML VIAL IV SCH (15:41)
[2016-11-26] MEDS: PHENYTOIN ER 100 MG CAPSULE PO SCH (18:22)
[2016-11-26] MEDS ORDERED: ALBUTEROL/IPRATROPIUM 3 ML NEB RESP TX PRN (18:27)
[2016-11-26] MEDS: ALBUTEROL/IPRATROPIUM 3 ML NEB RESP TX SCH ×2 (18:35→20:10)
[2016-11-26] MEDS: FUROSEMIDE 40 MG TABLET PO SCH (21:33)
[2016-11-27] MEDS: ALBUTEROL/IPRATROPIUM 3 ML NEB RESP TX SCH ×4 (00:55→19:35)
[2016-11-27] MEDS: methylPREDNISolone SOD SUC 40 MG/1 ML VIAL IV SCH ×3 (00:58→15:33)
[2016-11-27 04:17] LABS: ABG Base Excess 5.6 MMOL/L (-2.5-2.5); ABG HCO3 29.3 MMOL/L (20-26); ABG Oxygen Saturation 93.3 % (95-100); ABG PH 7.264 (7.35-7.45); ABG TCO2 32.2 MMOL/L (23-27); Allen Test Positive
[2016-11-27 05:02] LABS: ABG PCO2 81.6 MM HG (35-48)
[2016-11-27] MEDS: PIPERACILLIN/TAZOBACTAM 3,375 MG in SODIUM CHLORIDE 0.9% 100 ML IV SCH ×3 (06:03→22:05)
[2016-11-27 07:48] LABS: Basophils % 0.3 % (0.0-0.8); Eosinophils % 0.1 % (0.00-10.9); Hematocrit 44.9 VOL% (42.0-52.0); Hemoglobin 15.6 GM/DL (14.0-18.0); Immature Granulocytes Absolute 0.12 #; Lymphocytes # 0.8 10*3/uL (1.4-4.0); Lymphocytes % 6.7 % (21.2-54.2); Mean Corpuscular HGB Conc 34.7 GM/DL (32-36); Mean Corpuscular Hemoglobin 32 PG (27-34); Mean Corpuscular Volume 90.5 FL (87-102); Mean Platelet Volume 9.7 FL (9.6-12.0); Monocytes # 0.4 10*3/uL (0.11-0.8); Monocytes % 3.6 % (1.7-12.7); Neutrophils # 10.5 10*3/uL (1.4-7.4); Neutrophils % 88.3 % (38.7-73.9); Platelet Count 155 T/CUMM (130-400); Red Blood Count 4.96 MC/CUMM (3.8-5.5); Red Cell Distribution Width 13.2 % (9.3-17.3); White Blood Count 11.9 T/CUMM (4-12)
[2016-11-27 08:17] LABS: Alanine Aminotransferase 22 U/L (16-61); Albumin 3.8 G/DL (3.4-5.0); Alkaline Phosphatase 75 U/L (45-117); Aspartate Amino Transferase 11 U/L (0-37); Bilirubin,Total < 0.39 MG/DL (0.2-1.0); Blood Urea Nitrogen 11 MG/DL (7-18); Calcium 8.6 MG/DL (8.5-10.1); Glucose 171 MG/DL (74-106); Osmolality,Calculated 283.3 MOS/KG (273-304); Potassium 4.6 MMOL/L (3.5-5.1); Sodium 141 MMOL/L (136-145)
[2016-11-27] MEDS: NICOTINE 21 MG/24 HR PATCH TRANSDERM SCH (09:27)
[2016-11-27] MEDS: PANTOPRAZOLE 40 MG TABLET PO SCH (09:27)
[2016-11-27] MEDS: CARVEDILOL 3.125 MG TABLET PO SCH ×2 (09:27→22:05)
[2016-11-27] MEDS: PHENYTOIN ER 100 MG CAPSULE PO SCH ×2 (09:27→22:05)
[2016-11-27] MEDS: VALSARTAN 80 MG TABLET PO SCH (09:28)
[2016-11-27] MEDS: THEOPHYLLINE ER (24 HR) 400 MG TABLET PO SCH (09:28)
[2016-11-27] MEDS: MONTELUKAST 10 MG TABLET PO SCH (09:28)
[2016-11-27] MEDS: SPIRONOLACTONE 25 MG TABLET PO SCH (09:28)
[2016-11-27] MEDS: FUROSEMIDE 40 MG TABLET PO SCH (09:28)
--- NOTE | 2016-11-27 10:13 | XRay Report ---
History: Pneumonia Date: 11/27/2016 Study: Chest x-ray PA and lateral Comparison exam: 11/26/2016 The cardiac silhouette is not enlarged. The mediastinal contours are stable. The pulmonary vasculature is not engorged. There are some scattered emphysematous changes in the lungs. There is improved aeration in the right lung base compared to the previous exam, with only minor residual atelectatic changes. There is some pleural scarring in the left lung base laterally. Osseous structures are unchanged. Impression: Near complete resolution of the right basilar atelectasis/infiltrate since the previous study PROCEDURE INTERPRETED AT [facility] DEPARTMENT OF RADIOLOGY Final Report Signed by: Dr. Christi Nelson
[2016-11-27] MEDS: LEVOFLOXACIN INJ 750 MG in PREMIX 1 EACH IV SCH (12:23)
--- NOTE | 2016-11-27 13:59 | Pulmonology Progress Note ---
Pulmonary - PN: Subj Interval history: This is a 61-year-old white male whom I saw in pulmonary consultation on 2016. He was complaining of shortness of breath dyspnea on exertion very little sputum production. He was hypoxemic and had hypercarbia. He had continued to smoke up until the time of admission. He said he was down from 4 cartons a month to one carton of cigarettes per month. 1. Acute right lower lung pneumonia 2. Severe COPD with hypoxemia and mild hypercarbia. Past history of respiratory failure for oxygen and carbon dioxide. Past history of mechanical ventilation 3. Past history of CO2 retention exacerbated by supplemental oxygen. 4. Tobacco abuse. 5. Probably noncompliant with some of his medicines. Note nonexistent theophylline level and very low Dilantin level next past history of seizure disorder. 6. History of nonischemic cardiomyopathy. Note that in 2014 echocardiogram showed ejection fraction of 30%. In July 2016 echocardiogram showed an ejection fraction of 55%. There was no valvular disease. Pulmonary artery pressures were 50-55 mmHg with moderate tricuspid regurgitation. 7. See past history 11/27/2016. Patient has some problems with hypoxemia last night. He is a CO2 retainer and increase in his oxygen is against him so I stopped his O2 sats. He is been tried on BiPAP and will see how this works. Chest x-ray shows the heart is in the upper range of normal size he has a large right hilar area with dense calcifications. Left hilum is slightly prominent. I think the pulmonary arteries are probably enlarged. Mediastinum is normal. Lungs are hyperinflated with some increased markings in the medial basilar segment of the right lower lung and there appears to be old pleural disease on the left. ABGs at 350 this morning on FiO2 28% showed a pH 7.26 PCO2 of 81.6 PO2 of 70.0 and a bicarb of 29.3. Patient was subsequently started on BiPAP with an unknown FiO2. This did state in my consult this man is a CO2 retainer and will hold on to carbon dioxide with any supplemental oxygen. I am going to cut him to 1/2 L/ min take him off of his BiPAP and will repeat his blood gases about an hour. I have also discontinued his O2 sat monitor. I have started Diamox 250 mg IV push every 12 hours. Patient have a chest x-ray and ABGs tomorrow and I will put him on daily BMPs since he is on Diamox. Creatinine is 0.9 BUNs 11 sodium 141 potassium 4.6 CBC is stable. Cold agglutinins are negative. Legionella titers pending. Blood cultures are negative. No sputum is been turned in. Physical exam. Vital signs. See below Psychiatric. Lethargic Neuro cranial nerves are intact with decreased hearing acuity. Patient moves all 4 extremities Chest is symmetrical hyperinflated with prolonged incomplete expiration. Heart. No gallop Abdomen nondistended. Positive bowel sounds Lower extremities +1/4 chronic edema of the feet the legs that extends about 30 % the distance to the tibial plateaus bilaterally. Neck is symmetrical with no meningismus. Lymphatics no submandibular cervical supraclavicular or epitrochlear adenopathy. The remainder the exam is noncontributory. Plan. 11/26/2016 1. Would hold any supplemental oxygen to the absolute minimal. 2. Sputum for Gram stain culture and sensitivity. I assume blood cultures have already been drawn prior to admission 3. TSH and free T4 4. Cold agglutinins, Legionella titer 5. Nitrated peptide 6. Agree with protocol antibiotics, inhalation therapy and other orders. 7. Follow-up chest x-ray in a.m. 8. See order 11/27/2016. 1. DC BiPAP. 1/2 L oxygen per minute. Follow-up blood gases in 1 hour and tomorrow morning. 2. Chest x-ray in the morning 3. Daily BMP 4. This patient is a CO2 retainer and will not do well with oxygen. 5. NicoDerm patches have been offered but the patient declines 6. Discontinue O2 monitor. 7. See your Exam (Progress Note) - Constitutional Vitals: Period Temp Pulse Resp BP Sys/Centeno Pulse Ox Last 24 Hr 97.0 F-98.1 F 68-100 18-24 110-153/60-86 71-99 Results - Labs CBC & BMP: 11/27/16 07:38 11/27/16 07:38
[2016-11-27 15:10] LABS: ABG Base Excess 8.3 MMOL/L (-2.5-2.5); ABG Oxygen Saturation 90.8 % (95-100); ABG PCO2 61.9 MM HG (35-48); ABG PH 7.383 (7.35-7.45); ABG PO2 53.3 MM HG (80-95); ABG TCO2 37.9 MMOL/L (23-27); Allen Test Positive
--- NOTE | 2016-11-27 16:55 | Hospitalist Progress Note ---
Assessment and Plan (1) Respiratory distress, acute Status: Acute Assessment and plan: Patient has severe pulmonary hypertension, respiratory failure due to COPD exacerbation and pneumonia. Continue duo nebs, steroids and Zosyn and Levaquin Current Visit: Yes (2) Right middle lobe pneumonia Status: Acute Assessment and plan: cont zosyn and levaquin Current Visit: Yes Qualifiers: Pneumonia type: due to unspecified organism Qualified Code(s): J18.1 - Lobar pneumonia, unspecified organism (3) COPD exacerbation Status: Acute Assessment and plan: CO2 retainer keep oxygen level, continue duo nebs and steroid and antibiotics Current Visit: Yes (4) Pulmonary hypertension Problem details: Appreciate recs from Pulm. Continue current medical treatment regimen. Status: Chronic Assessment and plan: Echocardiogram from July 2016 shows PAP of 55. I would refer him to [facility] for treatment Current Visit: No (5) History of obstructive sleep apnea Status: Acute Assessment and plan: We will consult Dr. Grimes. Current Visit: No (6) HTN (hypertension) Problem details: Continue current treatment regimen. Status: Chronic Assessment and plan: cont coreg and diovan Current Visit: No Qualifiers: Hypertension type: essential hypertension Qualified Code(s): I10 - Essential (primary) hypertension Hospitalist: Subjective Interval history: Patient CO2 came down nicely with a few hours of BiPAP. We will lower the amount of oxygen he is on to keep his CO2 control. Patient probably needs to be tested as an outpatient for obstructive sleep apnea. 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 Exam - Constitutional Vitals: Period Temp Pulse Resp BP Sys/Centeno Pulse Ox Last 24 Hr 97.0 F-97.8 F 59-100 18-24 110-139/60-86 71-99 Exam: Heart Rate-[RRR] Lungs-[diminished and few wheezes ] GI-[+bs soft, NT] Ext-[no edema] Neuro [Motor 5/5], [alert and oriented times 3] psych [normal mood and affect] General [no acute distress] Results - Labs CBC & BMP: 11/27/16 07:38 11/27/16 07:38 Lab Results: I have reviewed the past 24 hour labs Labs: ABG PCo2 81 to 61, blood cx no growth - Diagnostic Findings Procedure: Chest x-ray: report reviewed by me (RLL pneumonia )
[2016-11-28] MEDS: ALBUTEROL/IPRATROPIUM 3 ML NEB RESP TX SCH ×3 (00:17→12:44)
[2016-11-28] MEDS: methylPREDNISolone SOD SUC 40 MG/1 ML VIAL IV SCH ×2 (01:18→09:23)
[2016-11-28 04:18] LABS: Allen Test Positive; Pt O2 Delivery Device Room Air
[2016-11-28 04:22] LABS: ABG Base Excess 3.3 MMOL/L (-2.5-2.5); ABG HCO3 27.1 MMOL/L (20-26); ABG Oxygen Saturation 90.9 % (95-100); ABG PCO2 57.3 MM HG (35-48); ABG PH 7.342 (7.35-7.45); ABG PO2 61.1 MM HG (80-95); ABG TCO2 26.4 MMOL/L (23-27)
[2016-11-28] MEDS: PIPERACILLIN/TAZOBACTAM 3,375 MG in SODIUM CHLORIDE 0.9% 100 ML IV SCH ×2 (05:14→12:38)
[2016-11-28 06:58] LABS: Calcium 8.8 MG/DL (8.5-10.1); Osmolality,Calculated 277.7 MOS/KG (273-304); Potassium 4.1 MMOL/L (3.5-5.1)
--- NOTE | 2016-11-28 07:35 | Pulmonology Progress Note ---
Pulmonary - PN: Subj Interval history: [facility] Kaur[facility] acting as scribe for Dr. Codey Horton This is a 61-year-old white male who we saw in pulmonary consultation on 2016. He was complaining of shortness of breath dyspnea on exertion very little sputum production. He was hypoxemic and had hypercarbia. He had continued to smoke up until the time of admission. He said he was down from 4 cartons a month to one carton of cigarettes per month. 1. Acute right lower lung pneumonia 2. Severe COPD with hypoxemia and mild hypercarbia. Past history of respiratory failure for oxygen and carbon dioxide. Past history of mechanical ventilation 3. Past history of CO2 retention exacerbated by supplemental oxygen. 4. Tobacco abuse. 5. Probably noncompliant with some of his medicines. Note nonexistent theophylline level and very low Dilantin level next past history of seizure disorder. 6. History of nonischemic cardiomyopathy. Note that in 2014 echocardiogram showed ejection fraction of 30%. In July 2016 echocardiogram showed an ejection fraction of 55%. There was no valvular disease. Pulmonary artery pressures were 50-55 mmHg with moderate tricuspid regurgitation. 7. See past history 11/27/2016. Patient has some problems with hypoxemia last night. He is a CO2 retainer and increase in his oxygen is against him so I stopped his O2 sats. He is been tried on BiPAP and will see how this works. Chest x-ray shows the heart is in the upper range of normal size he has a large right hilar area with dense calcifications. Left hilum is slightly prominent. I think the pulmonary arteries are probably enlarged. Mediastinum is normal. Lungs are hyperinflated with some increased markings in the medial basilar segment of the right lower lung and there appears to be old pleural disease on the left. ABGs at 350 this morning on FiO2 28% showed a pH 7.26 PCO2 of 81.6 PO2 of 70.0 and a bicarb of 29.3. Patient was subsequently started on BiPAP with an unknown FiO2. This did state in my consult this man is a CO2 retainer and will hold on to carbon dioxide with any supplemental oxygen. I am going to cut him to 1/2 L/ min take him off of his BiPAP and will repeat his blood gases about an hour. I have also discontinued his O2 sat monitor. I have started Diamox 250 mg IV push every 12 hours. Patient have a chest x-ray and ABGs tomorrow and I will put him on daily BMPs since he is on Diamox. Creatinine is 0.9 BUNs 11 sodium 141 potassium 4.6 CBC is stable. Cold agglutinins are negative. Legionella titers pending. Blood cultures are negative. No sputum is been turned in. 12/25/2016. Patient reports feeling better today. He denies any significant cough productive or otherwise. We did the addition of Diamox and lowering of the patient's FiO2, ABGs this morning show pH of 7.342, PCO2 57.3, PO2 61.1, bicarb 27.1, and oxygen saturation 90.9%. These were obtained on room air. Overall, he is feeling much better today. He has remained afebrile. Medications have been reviewed. We made no changes. Labs been reviewed. Creatinine 0.90, BUN 16, electrolytes are normal Cold agglutinins are negative. Legionella is pending. Blood cultures are negative at day 1. Exam (Progress Note) - Constitutional Vitals: Period Temp Pulse Resp BP Sys/Centeno Pulse Ox Last 24 Hr 97.0 F-97.7 F 59-89 18-24 106-140/66-76 85-99 Exam: Chest is symmetrical and hyperinflated with prolonged and incomplete expiration Heart no gallop Abdomen is obese, but nontender and nondistended; bowel sounds are positive 4 Lower extremities with nothing to suggest acute deep venous thrombophlebitis Psychiatric awake, alert and oriented 3 Neurologic long-term motor function is intact Plan: Continue present treatment. This patient cannot tolerate high FiO2's secondary to severe CO2 retention. Initial theophylline level was less than 2.0 and this patient was most likely not taking this medication. It has now been restarted. We will repeat theophylline level for the next 2 days. See orders. Results - Labs CBC & BMP: 11/27/16 07:38 11/28/16 06:11
--- NOTE | 2016-11-28 08:33 | XRay Report ---
Exam: XR chest 2V Date: 11/28/2016 4:00 AM Indication: Shortness of breath follow-up Comparison: 11/27/2016 Technical: PA lateral Findings: Some calcification present in the left base with some residual pleural thickening or dilated change or tiny effusion left base. Heart is normal in size. Mediastinum is otherwise intact. Cardiac pad superimposing the chest. Thoracic spine is unremarkable. Impression: 1. Residual atelectatic change infiltrate or effusion and some calcification left lateral base or pleural thickening PROCEDURE INTERPRETED AT [facility] DEPARTMENT OF RADIOLOGY Final Report Signed by: Dr. Codey Strauss
[2016-11-28] MEDS ORDERED: FUROSEMIDE 40 MG TABLET PO SCH (09:00)
[2016-11-28] MEDS: CARVEDILOL 3.125 MG TABLET PO SCH (09:21)
[2016-11-28] MEDS: THEOPHYLLINE ER (24 HR) 400 MG TABLET PO SCH (09:21)
[2016-11-28] MEDS: SPIRONOLACTONE 25 MG TABLET PO SCH (09:22)
[2016-11-28] MEDS: NICOTINE 21 MG/24 HR PATCH TRANSDERM SCH (09:22)
[2016-11-28] MEDS: PANTOPRAZOLE 40 MG TABLET PO SCH (09:22)
[2016-11-28] MEDS: PHENYTOIN ER 100 MG CAPSULE PO SCH (09:22)
[2016-11-28] MEDS: VALSARTAN 80 MG TABLET PO SCH (09:22)
[2016-11-28] MEDS: MONTELUKAST 10 MG TABLET PO SCH (09:26)
--- NOTE | 2016-11-28 10:50 | Discharge Summary ---
<Cyril Mckinney - Last Filed: 11/28/16 13:29> Hospital Course - Hospital Course Hospital Course: Mr. Alcazar is a 61 year old male who presented to the ED on 11/26/2016 for evaluation of shortness of breath. He has a significant medical history of COPD , tobaccoism, morbid obesity, KANDICE, CHF, seizure disorder and GERD. At the time of admission, he was found to be in COPD exacerbation with decreased theophylline levels. CXR at that time showed right basilar atelectasis/ infiltrate consistent with pneumonia. He was placed on 2L O2 per nasal cannula, given duonebs, and started on IV levaquin and zosyn. Pulmonology was consulted. He was found to have acute right lower lobe pneumonia and a past history of CO2 retention exacerbated by supplemental oxygen. Accordingly, his ABGs showed him to be hypoxic and hypercapneic. Therefore is oxygen was decreased to the absolute minimal. He was tried on BiPAP (CO2 decreased nicely) overnight then started on 1/2L oxygen with follow-up ABGs. ABGs this at the time of discharge reveal: PH 7.342, PCO2 57.3, PO2 of 6 1.1, bicarb 27.1, O2 saturation 90.9%. Echocardiogram from July 2016 revealed PAP of 55. At this time the patient has reached maximum benefit from hospitalization and is stable for discharge. He will be discharged home in stable condition with follow-up at [facility] for treatment of pulmonary hypertension, Dr. Grimes for KANDICE evaluation, and his PCP, Dr. Chan in 2 weeks. Patient seen and examined. Hospital course reviewed and agree with findings above. Specialty Discharge - Follow Up or Referrals Follow up with: Pulmonary Dr, at [facility] [Other] - 2 Weeks (treatment of pulmonary htn) Gail Grimes MD [Physician] - 2 Weeks (kandice) Suzanne Chan M.D. [Primary Care Provider] - 12/12/16 10:15 am Discharge Plan - Discharge Data Disposition: Disch To Home/Self Care - Discharge Medications New Albuterol/Ipratropium Neb [Duoneb] 3 ml RESP TX TID #90 vial Levofloxacin Tab [Levaquin Tab] 750 mg PO DAILY #7 tablet predniSONE TAB [PredniSONE] 20 mg PO DAILY #30 tablet Continue Omeprazole 20 mg PO QAM Carvedilol [Coreg] 3.125 mg PO BID tablet Phenytoin ER Cap [Dilantin Cap] 300 mg PO QAM capsule Phenytoin ER Cap [Dilantin Cap] 100 mg PO QPM capsule Theophylline ER Tab (24 Hr) 400 mg PO DAILY tablet Montelukast Tab [Singulair Tab] 10 mg PO QAM Ipratropium/Albuterol Inhaler [Combivent Respimat Inhaler] 1 puff INH Q6H PRN #0 PRN Reason: Shortness Of Breath/Wheezing Valsartan [Diovan] 80 mg PO QAM Furosemide Tab [Lasix Tab] 40 mg PO BID tablet Spironolactone [Aldactone] 12.5 mg PO QAM Albuterol Inhaler [Proventil Inhaler] 2 puff INH Q4H PRN #0 PRN Reason: Shortness Of Breath/Wheezing - Follow Up or Referral Follow Up: Pulmonary Dr, at [facility] [Other] - 2 Weeks (treatment of pulmonary htn) Gail Grimes MD [Physician] - 2 Weeks (kandice) Suzanne Chan M.D. [Primary Care Provider] - 12/12/16 10:15 am - Forms/Instructions Instructions: Pneumonia (DC) Exam - Constitutional Vitals: Period Temp Pulse Resp BP Sys/Centeno Pulse Ox Last 24 Hr 97.0 F-98.6 F 59-85 18-20 106-143/68-81 85-99 Discharge Results Procedures and tests throughout hospitalization: Pending Orders 11/26/16 Blood Culture Stat 11/26/16 12:23 Sputum Culture and Gram Stain Stat 11/29/16 04:00 BMP [Basic Metabolic Panel] IN AM Theophylline IN AM 11/30/16 04:00 BMP [Basic Metabolic Panel] IN AM Theophylline IN AM 12/01/16 04:00 BMP [Basic Metabolic Panel] IN AM Labs on day of discharge: Labs from last 24 hours 11/28/16 11/28/16 11/27/16 06:11 03:55 15:00 ABG pH 7.342 L 7.383 ABG pCO2 57.3 H 61.9 H ABG pO2 61.1 L 53.3 L ABG HCO3 27.1 H 36.0 H ABG Total CO2 26.4 37.9 H ABG O2 Saturation 90.9 L 90.8 L ABG Base Excess 3.3 H 8.3 H FiO2 21.00 22.00 Sodium 138 Potassium 4.1 Chloride 101 Carbon Dioxide 31 Anion Gap 10.1 BUN 16 Creatinine 0.90 GFR Calculation 129 BUN/Creatinine Ratio 17.00 Glucose 131 H Calculated Osmolality 277.7 Calcium 8.8 Preliminary micro results at discharge 11/26/16 Unknown Blood Culture - Preliminary Blood No growth at 1 day 11/26/16 Unknown Blood Culture - Preliminary Blood No growth at 1 day DS: Provider Date of admission: 11/26/16 10:14 Primary care physician: Suzanne Chan M.D. Attending physician on admission: Satinder Self DO Consults: 11/26/16 11:11 Consult to Physician [CONS] Routine Comment: Consulting Provider: Codey Horton When should Consulting Provider be notified: Now Consult to Specialist Group: Pulmonology Person Notified: Dr. Horton Date Notified: 11/26/16 Time Notified: 11:18 Consult Notification Comment: Dr. Horton on floor, made aware of pt 11/27/16 17:00 Consult to Sleep Center [CONS] Routine Reason for Sleep Center: Sleep Center Physician Discharging clinician: Cyril MOSQUEDA Expected date of discharge: 11/28/16 <Dafne Hanna - Last Filed: 11/28/16 14:19> Hospital Course - Time spent with patient Time with patient DS: Greater than 30 minutes (55 min) Diagnosis - Discharge Diagnosis (1) Respiratory distress, acute Status: Acute (2) Right middle lobe pneumonia Status: Acute (3) COPD exacerbation Status: Acute (4) Pulmonary hypertension Status: Chronic (5) History of obstructive sleep apnea Status: Acute (6) HTN (hypertension) Status: Chronic Discharge Plan - Discharge Data Condition at Discharge: Stable Discharge Diet: heart healthy Activity: resume usual activities as tolerated Hygiene: no restrictions Weight Bearing at Discharge: full weight bearing Driving: no restrictions Exam - Constitutional General appearance: normal weight, no acute distress - Respiratory Respiratory exam: Present: clear to auscultation bilaterally. Absent: rhonchi, wheezes - Cardiovascular Cardiovascular exam: Present: regular rate and rhythm. Absent: systolic murmur - GI/Abdominal GI/Abdominal exam: Present: normal bowel sounds, soft. Absent: tenderness - Extremities Exam Extremities exam: Present: normal inspection, normal capillary refill - Neurological Exam Neurological exam: Present: alert, oriented X3
[2016-11-28 12:08] VITALS: BP 115/81
[2016-11-28] MEDS: LEVOFLOXACIN INJ 750 MG in PREMIX 1 EACH IV SCH (12:38)
== END 2016-11-28 14:16 | disposition home or self-care (01) | DRG 190 ==
LOC: N.ED 07:42 → N.EDINP 10:14 → SUATTDRO 10:14 → N.EDINP 11:00 → N.5E 11:14
PROVIDERS: ADMIT Phlebology; ATTEND Internal Medicine

== ENCOUNTER 2017-01-25 01:08 | Inpatient (IN) ==
[2017-01-25] MEDS ORDERED: PROPOFOL 1,000 MG/100 ML BOTTLE IV ONE ×3 (01:17→11:19)
[2017-01-25] MEDS ORDERED: PIPERACILLIN/TAZOBACTAM 3,375 MG in SODIUM CHLORIDE 0.9% 100 ML IV STA (01:22)
[2017-01-25] MEDS ORDERED: VANCOMYCIN INJ 1,000 MG in SODIUM CHLORIDE 0.9% 250 ML IV STA (01:22)
[2017-01-25] MEDS ORDERED: methylPREDNISolone SOD SUC 125 MG/2 ML VIAL IV STA (01:28)
[2017-01-25] MEDS ORDERED: ALBUTEROL/IPRATROPIUM 3 ML NEB RESP TX STA (01:28)
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
[2017-01-25 01:44] LABS: Basophils # 0.2 10*3/uL (0.0-0.2); Eosinophils # 1.2 10*3/uL (0.0-0.87); Eosinophils % 6.9 % (0.00-10.9); Hematocrit 50.1 VOL% (42.0-52.0); Hemoglobin 17.1 GM/DL (14.0-18.0); Immature Granulocytes % 1.2 %; Immature Granulocytes Absolute 0.21 #; Lymphocytes # 2.5 10*3/uL (1.4-4.0); Lymphocytes % 14.2 % (21.2-54.2); Mean Corpuscular HGB Conc 34.1 GM/DL (32-36); Mean Corpuscular Hemoglobin 31 PG (27-34); Mean Corpuscular Volume 89.3 FL (87-102); Mean Platelet Volume 10.2 FL (9.6-12.0); Monocytes # 0.9 10*3/uL (0.11-0.8); Monocytes % 5.2 % (1.7-12.7); Neutrophils # 12.4 10*3/uL (1.4-7.4); Neutrophils % 71.5 % (38.7-73.9); Platelet Count 195 T/CUMM (130-400); Red Blood Count 5.61 MC/CUMM (3.8-5.5); Red Cell Distribution Width 13.2 % (9.3-17.3); White Blood Count 17.3 T/CUMM (4-12)
[2017-01-25] MEDS ORDERED: ONDANSETRON 4 MG/2 ML VIAL ONE (01:44)
[2017-01-25 01:45] LABS: ABG Base Excess 0.4 MMOL/L (-2.5-2.5); ABG HCO3 34.7 MMOL/L (20-26); ABG Oxygen Saturation 98.9 % (95-100); ABG PCO2 112.8 MM HG (35-48); ABG PO2 216.5 MM HG (80-95); ABG TCO2 38.2 MMOL/L (23-27); Allen Test Positive; Pt O2 Delivery Device Ventilator
[2017-01-25 01:50] LABS: ABG PH 7.106 (7.35-7.45)
[2017-01-25] MEDS ORDERED: methylPREDNISolone SOD SUC 125 MG/2 ML VIAL ONE (02:19)
[2017-01-25] MEDS ORDERED: VANCOMYCIN 1,000 MG VIAL ONE (02:19)
[2017-01-25] MEDS: PROPOFOL 1,000 MG/100 ML BOTTLE IV SCH ×4 (02:29→20:41)
[2017-01-25] MEDS ORDERED: LORazepam 2 MG/1 ML VIAL ONE (02:59)
[2017-01-25] MEDS ORDERED: LACTULOSE 20 GM/30 ML UDCUP PO PRN (03:01)
[2017-01-25] MEDS ORDERED: ONDANSETRON 4 MG/2 ML VIAL IV PRN (03:01)
[2017-01-25] MEDS ORDERED: VECURONIUM 10 MG VIAL IV ONE (03:09)
[2017-01-25] MEDS ORDERED: VECURONIUM 10 MG VIAL IV STA (03:24)
[2017-01-25] MEDS ORDERED: methylPREDNISolone SOD SUC 40 MG/1 ML VIAL IV SCH (04:00)
[2017-01-25] MEDS ORDERED: PHENYTOIN INJ 1,000 MG in SODIUM CHLORIDE 0.9% 100 ML IV ONE (04:02)
[2017-01-25] MEDS ORDERED: PIPERACILLIN/TAZOBACTAM 3,375 MG VIAL IV ONE (04:05)
[2017-01-25] MEDS ORDERED: SODIUM CHLORIDE 0.9% 100 ML IV ONE (04:05)
[2017-01-25 04:10] LABS: Alanine Aminotransferase 93 U/L (16-61); Albumin 4.2 G/DL (3.4-5.0); Alkaline Phosphatase 153 U/L (45-117); Aspartate Amino Transferase 97 U/L (0-37); Bilirubin,Total < 0.39 MG/DL (0.2-1.0); Blood Urea Nitrogen 14 MG/DL (7-18); Calcium 8.7 MG/DL (8.5-10.1); Glucose 248 MG/DL (74-106); Osmolality,Calculated 285.5 MOS/KG (273-304); Potassium 4.8 MMOL/L (3.5-5.1); Sodium 139 MMOL/L (136-145); Total Protein 7.8 G/DL (6.4-8.3)
[2017-01-25 04:11] LABS: Amorphous Crystals,Urine Occasional /HPF (Few); Bacteria,Urine Occasional /HPF (Few); Hyaline Casts,Urine 10 /LPF (0-3); Mucus,Urine Occasional /LPF (Occasional); RBC,Urine 3 /HPF (0-4); Squamous Epithelial Cell,Urine Occasional /HPF (0-10); WBC,Urine 8 /HPF (0-6)
[2017-01-25 04:12] LABS: Apearance,Urine Slightly Hazy (Clear); Glucose,Urine (UA) 500 mg/dL (Negative); Ketones,Urine Negative (Negative); Nitrite,Urine Negative (Negative); Protein,Urine >500 MG/DL; Urine Color Yellow (Yellow)
[2017-01-25 04:13] LABS: Bilirubin,Urine Negative (Negative); Blood, Urine Negative (Negative); Urine Urobilinogen 0.2 EU/DL (0.2-1.0)
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
[2017-01-25] MEDS: ENOXAPARIN 40 MG/0.4 ML SYRINGE SUBCUT SCH (04:46)
[2017-01-25] MEDS ORDERED: PHENYTOIN 250 MG/5 ML VIAL IV ONE (04:49)
[2017-01-25] MEDS ORDERED: DEXTROSE 50% 25 GM/50 ML SYRINGE IV PRN (04:59)
[2017-01-25] MEDS ORDERED: GLUCAGON 1 MG VIAL IM PRN (04:59)
[2017-01-25 06:02] LABS: Allen Test Positive; Pt O2 Delivery Device Ventilator
[2017-01-25 06:03] LABS: ABG Base Excess 0.8 MMOL/L (-2.5-2.5); ABG Oxygen Saturation 94.7 % (95-100); ABG PH 7.211 (7.35-7.45); ABG PO2 80.1 MM HG (80-95); ABG TCO2 28.7 MMOL/L (23-27)
--- NOTE | 2017-01-25 06:24 | EKG Report ---
Stationary ECG Study [facility] ER Test Date: 01/25/2017 1:11:39 AM Pat Name: PRECIOUS BLAKE Department: Room: Gender: M Knifer Up: : 1955 Requested by: Manish Butler Order Number: [id number] Reading MD: RICH STEPHENS Intervals [place] Rate: 99 P: 77 ID: [id number] QRS: -85 QRSD: 108 T: 66 QT: 352 QTc: 409 Interpretive Statements SINUS RHYTHM MARKED LEFT AXIS DEVIATION POOR R-WAVE PROGRESSION Electronically Signed On 01-25-17 16:45:02 CDT by RICH STEPHENS [email or web address]
[2017-01-25] MEDS: methylPREDNISolone SOD SUC 40 MG/1 ML VIAL IV SCH ×3 (07:08→20:40)
[2017-01-25 07:29] LABS: Basophils % 0.3 % (0.0-0.8); Eosinophils # 0.1 10*3/uL (0.0-0.87); Eosinophils % 0.5 % (0.00-10.9); Hematocrit 45.2 VOL% (42.0-52.0); Hemoglobin 15.4 GM/DL (14.0-18.0); Immature Granulocytes % 0.5 %; Immature Granulocytes Absolute 0.05 #; Lymphocytes # 0.6 10*3/uL (1.4-4.0); Lymphocytes % 5.2 % (21.2-54.2); Mean Corpuscular HGB Conc 34.1 GM/DL (32-36); Mean Corpuscular Hemoglobin 31 PG (27-34); Mean Platelet Volume 10.4 FL (9.6-12.0); Monocytes # 0.6 10*3/uL (0.11-0.8); Monocytes % 5.2 % (1.7-12.7); Neutrophils # 9.6 10*3/uL (1.4-7.4); Neutrophils % 88.3 % (38.7-73.9); Red Blood Count 5.02 MC/CUMM (3.8-5.5); Red Cell Distribution Width 13.2 % (9.3-17.3); White Blood Count 10.8 T/CUMM (4-12)
--- NOTE | 2017-01-25 07:36 | CT Report ---
Exam: CT chest with contrast, PE study Date: 01/25/2017 Comparison: 04/01/2014 Reason: Respiratory arrest, shortness of breath Technique: Axial images of the chest were obtained after administration of 80 cc of IV Omnipaque 350 intravenous contrast. Coronal reformatted images were also acquired. The study was performed per pulmonary embolism protocol. Total DLP: 997.60. This exam was initially interpreted by [facility]. Findings: The heart is minimally enlarged with cardiac fat pads and coronary artery calcifications. No evidence of aortic dissection or definite pulmonary emboli. Enlargement of the pulmonary arteries especially the central pulmonary trauma. Endotracheal tube in satisfactory position. Mediastinal and hilar nodes which remain borderline in size to minimally enlarged. Stable 24 mm left adrenal nodule. 12 mm right midpole renal lesion with contracted gallbladder. Gaseous distention of the stomach with air-fluid level. Bullous emphysema with residual cystic bronchiectasis in the right lower lobe with progressive findings especially in the right lower lobe. 5 mm noncalcified pulmonary nodule in the right lung apex on scans 27.. Additional 5 mm noncalcified pulmonary nodule in the right upper lobe on scan 41. 2 mm noncalcified pulmonary nodule in the right midlung zone scan 83. None of these findings were present on previous scans. Impression: No evidence of pulmonary embolism. Arterial calcifications including coronary artery calcifications. Enlargement of the pulmonary arteries which may be related to pulmonary arterial hypertension in patient with bullous emphysema. Chronic cystic bronchiectasis in the right lower lobe with progressive atelectasis/infiltration especially in the right lower lobe. Also there are indeterminate new noncalcified pulmonary nodules in the right lung and short-term follow-up CT chest may be helpful for further evaluation. Stable left adrenal probable adenoma. Incomplete evaluation of 12 mm renal lesion with nonspecific contraction of the gallbladder. Fasting ultrasound may be helpful for further evaluation of these findings. Gaseous distention of the stomach with air-fluid level. This CT exam was performed using one or more the following dose reduction techniques: Automated exposure control, adjustment of the MA and/or KV according to patient size, or use of iterative reconstruction technique. PROCEDURE INTERPRETED AT [facility] DEPARTMENT OF RADIOLOGY Final Report Signed by: Dr. Sandra Laws
[2017-01-25 07:38] LABS: Platelet Count 110 T/CUMM (130-400)
[2017-01-25 08:20] LABS: Albumin 3.4 G/DL (3.4-5.0); Bilirubin,Total 0.5 MG/DL (0.2-1.0); Calcium 8.7 MG/DL (8.5-10.1); Magnesium 2.6 MG/DL (1.8-2.4); Osmolality,Calculated 279.5 MOS/KG (273-304); Total Protein 6.8 G/DL (6.4-8.3)
[2017-01-25] MEDS: ALBUTEROL/IPRATROPIUM 3 ML NEB RESP TX SCH ×3 (08:23→19:44)
[2017-01-25 08:24] LABS: Potassium 6.1 MMOL/L (3.5-5.1)
[2017-01-25 08:25] LABS: Hypochromasia 1+; Microcytosis Slight
[2017-01-25] MEDS ORDERED: FUROSEMIDE 40 MG TABLET PO SCH (09:00)
--- NOTE | 2017-01-25 09:22 | XRay Report ---
Portable chest Date: 01/25/2017 Clinical history: Nasogastric tube placement Comparison: 01/25/2017 Technique: Portable AP sitting chest Findings: The tip of the nasogastric tube projects just below the GE junction. Impression: The tip of the nasogastric tube projects just below the GE junction. The tube should be advanced further into the stomach. PROCEDURE INTERPRETED AT [facility] DEPARTMENT OF RADIOLOGY Final Report Signed by: Dr. Sandra Laws
[2017-01-25] MEDS: PANTOPRAZOLE 40 MG VIAL IV SCH (09:25)
[2017-01-25] MEDS ORDERED: PANTOPRAZOLE 40 MG VIAL IV ONE (09:25)
[2017-01-25] MEDS ORDERED: VANCOMYCIN INJ 1,500 MG in SODIUM CHLORIDE 0.9% 500 ML IV SCH (11:55)
--- NOTE | 2017-01-25 11:57 | XRay Report ---
History: Endotracheal tube placement. Respiratory arrest Date: 01/25/2017 Study: Chest x-ray AP portable Comparison exam: November 28, 2016 The endotracheal tube is well-positioned with its tip superior to the warren. The cardiac silhouette is not enlarged. The mediastinal contours are unchanged. The pulmonary vasculature is not engorged. There is no gross pleural effusion. The exam was performed in shallow inspiration with some mild strandy subsegmental atelectasis in the right lung base. The lungs are otherwise clear. The osseous structures are unchanged. Impression: The endotracheal tube is in satisfactory position. Shallow inspiration with subsegmental atelectasis in the right lung base PROCEDURE INTERPRETED AT [facility] DEPARTMENT OF RADIOLOGY Final Report Signed by: Dr. Christi Nelson
[2017-01-25] MEDS: PIPERACILLIN/TAZOBACTAM 3,375 MG in SODIUM CHLORIDE 0.9% 100 ML IV SCH ×2 (13:05→20:40)
[2017-01-25] MEDS: INSULIN REGULAR 100 UNIT/ML SUBCUT SCH ×4 (13:30→23:49)
[2017-01-25] MEDS: CARVEDILOL 3.125 MG TABLET PO SCH ×2 (13:36→20:45)
[2017-01-25] MEDS: PHENYTOIN 100 MG/4 ML UDCUP PO SCH ×2 (13:36→20:40)
[2017-01-25] MEDS: MONTELUKAST 10 MG TABLET PO SCH (13:36)
[2017-01-25 13:43] LABS: ABG Base Excess 3.3 MMOL/L (-2.5-2.5); ABG HCO3 33.8 MMOL/L (20-26); ABG Oxygen Saturation 99.1 % (95-100); ABG PH 7.243 (7.35-7.45); ABG TCO2 36.3 MMOL/L (23-27); Allen Test Positive; Pt O2 Delivery Device Ventilator
[2017-01-25 13:44] LABS: ABG PCO2 80.2 MM HG (35-48)
--- NOTE | 2017-01-25 16:46 | Hospitalist Progress Note ---
Assessment and Plan (1) Respiratory failure, [id number] Status: Acute Assessment and plan: Stat ABG, Dr. Horton will be managing vent. Current Visit: No Qualifiers: Respiratory failure complication: hypoxia and hypercapnia (2) Seizure disorder Problem details: Continue home meds Status: Chronic Assessment and plan: cont dilantin Current Visit: No (3) Pulmonary hypertension Problem details: Appreciate recs from Pulm. Continue current medical treatment regimen. Status: Chronic Assessment and plan: Dr. Horton will managing Current Visit: No (4) Acute exacerbation of chronic obstructive pulmonary disease (COPD) Status: Acute Assessment and plan: duoneb and steroids Current Visit: Yes (5) Hypertension, essential Status: Acute Assessment and plan: cont coreg, hold diuretics Current Visit: Yes (6) Uncontrolled diabetes mellitus Status: Acute Assessment and plan: hgb A1c 5.8 Current Visit: Yes Qualifiers: Diabetes mellitus complication status: without complication Hospitalist: Subjective Interval history: Was notified approximately one half hour ago that this patient had not been seen by our am service today. Patient will now be assigned to me and I will see him now at 4:16 PM. Patient will be seen by Dr. Horton later. We have ordered now blood gases. We have stopped the vancomycin but will continue the Zosyn. Patient's PCO2 is extremely high. Must keep his O2 as low as possible. I note this patient he does tend to abuse oxygen at home. He gets very short of breath and will just crank his oxygen up and then gets in respiratory failure. Exam - Constitutional Vitals: Period Temp Pulse Resp BP Sys/Centeno Pulse Ox Last 24 Hr 97.4 F-98.3 F 59-125 12-24 92-159/61-98 96-100 Exam: Heart Rate-[RRR] Lungs-[diminished] GI-[+bs soft, NT] Ext-[no edema] Neuro [Motor 5/5], [alert and oriented times 3] psych [normal mood and affect] General [no acute distress] Results - Labs CBC & BMP: 01/25/17 07:05 01/25/17 Unknown Lab Results: I have reviewed the past 24 hour labs - Diagnostic Findings Procedure: CT - chest: report reviewed by me (No PE, enlargement of the pulmonary arteries may be related to pulmonary artery hypertension with bullous emphysema, chronic bronchiectasis)
[2017-01-25 16:48] LABS: ABG Oxygen Saturation 99.1 % (95-100); ABG PCO2 43.8 MM HG (35-48); ABG PH 7.429 (7.35-7.45); ABG TCO2 24.5 MMOL/L (23-27)
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
[2017-01-25] MEDS: AMINOPHYLLINE 500 MG in SODIUM CHLORIDE 0.9% 480 ML IV SCH (23:43)
[2017-01-26] MEDS: PROPOFOL 1,000 MG/100 ML BOTTLE IV SCH ×9 (00:01→23:51)
[2017-01-26] MEDS: ALBUTEROL/IPRATROPIUM 3 ML NEB RESP TX SCH ×4 (00:40→19:32)
[2017-01-26] MEDS: PIPERACILLIN/TAZOBACTAM 3,375 MG in SODIUM CHLORIDE 0.9% 100 ML IV SCH ×3 (00:41→20:52)
[2017-01-26] MEDS: ENOXAPARIN 40 MG/0.4 ML SYRINGE SUBCUT SCH (03:46)
[2017-01-26 04:11] LABS: ABG Base Excess 5.4 MMOL/L (-2.5-2.5); ABG HCO3 29.3 MMOL/L (20-26); ABG PCO2 35.9 MM HG (35-48); ABG PH 7.507 (7.35-7.45); ABG TCO2 24.1 MMOL/L (23-27); Allen Test Positive; Pt O2 Delivery Device Ventilator
[2017-01-26] MEDS: methylPREDNISolone SOD SUC 40 MG/1 ML VIAL IV SCH ×3 (04:16→20:53)
[2017-01-26 06:08] LABS: Basophils % 0.3 % (0.0-0.8); Eosinophils % 0.3 % (0.00-10.9); Hematocrit 40.9 VOL% (42.0-52.0); Hemoglobin 14.2 GM/DL (14.0-18.0); Immature Granulocytes % 0.5 %; Immature Granulocytes Absolute 0.05 #; Lymphocytes # 1.1 10*3/uL (1.4-4.0); Lymphocytes % 11.6 % (21.2-54.2); Mean Corpuscular HGB Conc 34.7 GM/DL (32-36); Mean Corpuscular Hemoglobin 31 PG (27-34); Mean Platelet Volume 10.8 FL (9.6-12.0); Monocytes # 0.7 10*3/uL (0.11-0.8); Monocytes % 7.7 % (1.7-12.7); Neutrophils # 7.6 10*3/uL (1.4-7.4); Neutrophils % 79.6 % (38.7-73.9); Platelet Count 124 T/CUMM (130-400); Red Blood Count 4.65 MC/CUMM (3.8-5.5); White Blood Count 9.6 T/CUMM (4-12)
[2017-01-26] MEDS: INSULIN REGULAR 100 UNIT/ML SUBCUT SCH ×3 (06:27→18:20)
[2017-01-26 06:38] LABS: Calcium 8.4 MG/DL (8.5-10.1); Osmolality,Calculated 288.3 MOS/KG (273-304); Potassium 3.7 MMOL/L (3.5-5.1)
[2017-01-26 06:44] LABS: Magnesium 2.2 MG/DL (1.8-2.4); Phosphorous 1.8 MG/DL (2.5-4.9); Prealbumin 23.8 MG/DL (20-40)
--- NOTE | 2017-01-26 07:38 | XRay Report ---
Portable chest Date: 01/26/2017 Clinical history: Pneumonia Comparison: 01/25/2017 Technique: Portable AP sitting chest Findings: The heart is borderline in size with minimal reduction diffuse infiltration/edema/atelectasis at the lung bases with small pleural effusions. The endotracheal tube remains in satisfactory position. Nasogastric tube seen entering the stomach. Stable mediastinum and osseous structures. Impression: Minimally improved bibasilar pneumonia with persistent small pleural effusions.. PROCEDURE INTERPRETED AT [facility] DEPARTMENT OF RADIOLOGY Final Report Signed by: Dr. Sandra Laws
[2017-01-26] MEDS: PHENYTOIN 100 MG/4 ML UDCUP PO SCH ×2 (08:27→20:53)
[2017-01-26] MEDS: MONTELUKAST 10 MG TABLET PO SCH (08:27)
[2017-01-26] MEDS: CARVEDILOL 3.125 MG TABLET PO SCH ×2 (08:27→20:53)
[2017-01-26] MEDS: PANTOPRAZOLE 40 MG VIAL IV SCH (08:27)
[2017-01-26] MEDS: MORPHINE 2 MG/1 ML SYRINGE IV PRN ×2 (08:28→15:22)
[2017-01-26] MEDS: LORazepam 2 MG/1 ML VIAL IV PRN ×2 (08:39→15:22)
[2017-01-26] MEDS ORDERED: THEOPHYLLINE ER (24 HR) 400 MG TABLET PO SCH (09:00)
--- NOTE | 2017-01-26 10:38 | Pulmonology Progress Note ---
Pulmonary - PN: Subj Interval history: This is a 61-year-old white male whom I saw in pulmonary consultation on 2016. I have seen this patient in the past. He has a long history of noncompliance with medications. He also in the past has been very difficult to wean from mechanical ventilation and usually he requires a PCO2 of approximately 60 My impressions were. 1. Acute respiratory failure for oxygen and carbon dioxide requiring intubation mechanical ventilation 2. Probable right lower lung pneumonia 3. Obstructive lung disease with bronchospastic disease 4. Heart disease with past history of congestive heart failure 5. Tobacco abuse 6. Noncompliant patient 7. Seizure disorder 8. History of high blood pressure 9. Pulmonary hypertension. Most likely secondary to hypoxemia, COPD and obstructive sleep apnea. 10. See past history 11. Past history of tracheotomy 01/26/2017. Today's x-ray shows hyperinflation is possible faint infiltrate in the lateral basal segment of the left lower lung. ABGs on mechanical ventilation FiO2 of 40% shows a pH 7.507 PCO2 36 PO2 of 128 and a bicarb of 29.3. Ventilator changes have been made to allow the patient's CO2 to increase. He is on a weaning protocol. Electrolytes are normal. Creatinine is 0.8 with a BUN of 18 white count is 9680 segs H&H 14.2/40.9. Patient is on IV Aminophyllin. Aminophyllin level is pending. He is on infusion at 22 mg/h. He was not loaded with theophylline and his admit level was less than 2.0 consistent with noncompliance with his medicines. Physical exam. Psychiatric arousable. Neurologic. Cranial nerves are been intact and patient moves all 4 extremities Face. Symmetrical. No edema of the lips and tongue Neck. Symmetrical no meningismus Chest. Hyperinflated mild coarse large airway congestion Heart. No gallop Abdomen. Nondistended. Only rare bowel sounds Lower extremities. No edema nothing to suggest deep venous thrombophlebitis Lymphatics. No submandibular cervical supraclavicular or epitrochlear adenopathy The remainder the physical exam is negative. Plan. 01/25/2017 1. Mechanical ventilation. Ventilator weaning protocol. Ventilator physical therapy protocol. 2. Sputum for Gram stain culture and sensitivity 3. Legionella titer 4. Cold agglutinins. 5. Daily chest x-ray and ABGs 6. See orders 7. Based on this patient's past hospitalization he will probably require a PCO2 of about 50-60 in order to weaning from the ventilator. 8. Note history of seizure disorder. Agree with restarting Dilantin 9. Theophylline level 01/26/2017. 1. Weaning protocol 2. Keep PCO2 approximately 60 3. Daily chest x-rays and ABGs. 4. Have ordered daily theophylline Exam (Progress Note) - Constitutional Vitals: Period Temp Pulse Resp BP Sys/Centeno Pulse Ox Last 24 Hr 97.2 F-97.6 F 51-82 16-24 95-132/50-109 95-100 Results - Labs CBC & BMP: 01/26/17 04:30 01/26/17 04:30
[2017-01-26] MEDS ORDERED: POTASSIUM PHOSPHATE 15 MMOL in SODIUM CHLORIDE 0.9% 100 ML IV ONE (11:00)
--- NOTE | 2017-01-26 15:56 | Hospitalist Progress Note ---
Assessment and Plan (1) Respiratory failure, [id number] Status: Acute Assessment and plan: Stat ABG, Dr. Horton will be managing vent. Current Visit: No Qualifiers: Respiratory failure complication: hypoxia and hypercapnia (2) Seizure disorder Problem details: Continue home meds Status: Chronic Assessment and plan: increase dilantin 100 mg tid, dilantin bolus 500 ml IV over one hour Current Visit: No (3) Pulmonary hypertension Problem details: Appreciate recs from Pulm. Continue current medical treatment regimen. Status: Chronic Assessment and plan: Dr. Horton, intubated Current Visit: No (4) Acute exacerbation of chronic obstructive pulmonary disease (COPD) Status: Acute Assessment and plan: duoneb and steroids Current Visit: Yes (5) Hypertension, essential Status: Acute Assessment and plan: cont coreg, gentle hydration Current Visit: Yes (6) Uncontrolled diabetes mellitus Status: Acute Assessment and plan: hgb A1c 5.8 controlled, ISC Current Visit: Yes Qualifiers: Diabetes mellitus complication status: without complication (7) Dehydration Status: Acute Assessment and plan: 1/2 ns at 125 ml/hr, cont hold diuretics Current Visit: Yes (8) Elevated liver enzymes Status: Acute Assessment and plan: cmp in am, ammonia level, hepatitis panel Current Visit: Yes Hospitalist: Subjective Interval history: CO2 came down to 30.5. Exam - Constitutional Vitals: Period Temp Pulse Resp BP Sys/Centeno Pulse Ox Last 24 Hr 97.2 F-97.6 F 51-74 16-20 95-132/50-109 95-100 Exam: Heart Rate-[RRR] Lungs-[diminished but clear] GI-[+bs soft, NT] Ext-[no edema] Neuro sedated and intubated. psych unable to evaluate due to sedation General [no acute distress] Results - Labs CBC & BMP: 01/26/17 04:30 01/26/17 04:30 Lab Results: I have reviewed the past 24 hour labs Labs: Blood cultures 2 negative no growth, urine culture negative no growth, Dilantin level 5.4 - Diagnostic Findings Procedure: Chest x-ray: report reviewed by me (Bilateral lower extremity atelectasis)
[2017-01-26] MEDS ORDERED: PHENYTOIN INJ 500 MG in SODIUM CHLORIDE 0.9% 100 ML IV ONE (16:30)
[2017-01-26] MEDS: SODIUM CHLORIDE 0.45% 1,000 ML IV SCH (17:33)
[2017-01-26] MEDS: AMINOPHYLLINE 500 MG in SODIUM CHLORIDE 0.9% 480 ML IV SCH (17:33)
[2017-01-27] MEDS: ALBUTEROL/IPRATROPIUM 3 ML NEB RESP TX SCH ×4 (00:32→20:33)
[2017-01-27] MEDS: INSULIN REGULAR 100 UNIT/ML SUBCUT SCH ×3 (00:39→12:09)
[2017-01-27] MEDS: SODIUM CHLORIDE 0.45% 1,000 ML IV SCH ×2 (02:24→09:53)
[2017-01-27 03:20] LABS: ABG Base Excess 4.5 MMOL/L (-2.5-2.5); ABG HCO3 28.4 MMOL/L (20-26); ABG Oxygen Saturation 98.2 % (95-100); ABG PCO2 44.5 MM HG (35-48); ABG TCO2 25.2 MMOL/L (23-27); Pt O2 Delivery Device Ventilator
[2017-01-27] MEDS: PROPOFOL 1,000 MG/100 ML BOTTLE IV SCH ×9 (03:23→23:55)
[2017-01-27] MEDS: ENOXAPARIN 40 MG/0.4 ML SYRINGE SUBCUT SCH (03:23)
[2017-01-27] MEDS: PIPERACILLIN/TAZOBACTAM 3,375 MG in SODIUM CHLORIDE 0.9% 100 ML IV SCH ×3 (03:24→20:49)
[2017-01-27] MEDS: methylPREDNISolone SOD SUC 40 MG/1 ML VIAL IV SCH ×3 (04:33→20:50)
--- NOTE | 2017-01-27 08:51 | XRay Report ---
Portable chest Date: 01/27/2017 Clinical history: Anemia Comparison: 01/26/2017 Technique: Portable AP sitting chest Findings: The heart is borderline in size with stable supportive devices. Progressive parenchymal findings at the right lung base with minimally larger right pleural effusion. More stable findings at left lung base. Degenerative changes are noted. Impression: Minimally progressive infiltration at the right lung base minimally larger right pleural effusion. More stable findings at the left lung base with the supportive devices remaining in satisfactory position. PROCEDURE INTERPRETED AT [facility] DEPARTMENT OF RADIOLOGY Final Report Signed by: Dr. Sandra Laws
[2017-01-27 08:59] LABS: Calcium 8.4 MG/DL (8.5-10.1); Osmolality,Calculated 280.5 MOS/KG (273-304); Potassium 4.1 MMOL/L (3.5-5.1)
[2017-01-27] MEDS: PHENYTOIN 100 MG/4 ML UDCUP PO SCH ×3 (09:53→20:50)
[2017-01-27] MEDS: CARVEDILOL 3.125 MG TABLET PO SCH ×2 (09:53→20:49)
[2017-01-27] MEDS: PANTOPRAZOLE 40 MG VIAL IV SCH (09:53)
[2017-01-27] MEDS: MONTELUKAST 10 MG TABLET PO SCH (09:53)
[2017-01-27] MEDS: AMINOPHYLLINE 500 MG in SODIUM CHLORIDE 0.9% 480 ML IV SCH (09:56)
[2017-01-27 10:54] LABS: Basophils % 0.2 % (0.0-0.8); Eosinophils % 0.2 % (0.00-10.9); Hemoglobin 14.9 GM/DL (14.0-18.0); Immature Granulocytes % 0.4 %; Immature Granulocytes Absolute 0.05 #; Lymphocytes # 0.9 10*3/uL (1.4-4.0); Lymphocytes % 7.2 % (21.2-54.2); Mean Corpuscular HGB Conc 35.5 GM/DL (32-36); Mean Corpuscular Hemoglobin 31 PG (27-34); Mean Corpuscular Volume 87.1 FL (87-102); Monocytes # 0.8 10*3/uL (0.11-0.8); Monocytes % 6.2 % (1.7-12.7); Neutrophils # 10.3 10*3/uL (1.4-7.4); Neutrophils % 85.8 % (38.7-73.9); Platelet Count 120 T/CUMM (130-400); Red Blood Count 4.82 MC/CUMM (3.8-5.5); Red Cell Distribution Width 13.2 % (9.3-17.3); White Blood Count 12.1 T/CUMM (4-12)
[2017-01-27 11:28] LABS: Hypochromasia 1+; Platelet Estimate Adequate
--- NOTE | 2017-01-27 12:18 | Pulmonology Progress Note ---
Pulmonary - PN: Subj Interval history: Sonido Kaur, [facility]-, acting as scribe for Dr. Codey Horton This is a 61-year-old white male who we saw in pulmonary consultation on 2016. We have seen this patient in the past. He has a long history of noncompliance with medications. He also in the past has been very difficult to wean from mechanical ventilation and usually he requires a PCO2 of approximately 60 At the time of our initial consultation, our impressions were: 1. Acute respiratory failure for oxygen and carbon dioxide requiring intubation mechanical ventilation 2. Probable right lower lung pneumonia 3. Obstructive lung disease with bronchospastic disease 4. Heart disease with past history of congestive heart failure 5. Tobacco abuse 6. Noncompliant patient 7. Seizure disorder 8. History of high blood pressure 9. Pulmonary hypertension. Most likely secondary to hypoxemia, COPD and obstructive sleep apnea. 10. See past history 11. Past history of tracheotomy 01/26/2017. Today's x-ray shows hyperinflation is possible faint infiltrate in the lateral basal segment of the left lower lung. ABGs on mechanical ventilation FiO2 of 40% shows a pH 7.507 PCO2 36 PO2 of 128 and a bicarb of 29.3. Ventilator changes have been made to allow the patient's CO2 to increase. He is on a weaning protocol. Electrolytes are normal. Creatinine is 0.8 with a BUN of 18 white count is 9680 segs H&H 14.2/40.9. Patient is on IV Aminophyllin. Aminophyllin level is pending. He is on infusion at 22 mg/h. He was not loaded with theophylline and his admit level was less than 2.0 consistent with noncompliance with his medicines. 01/27/2017. Patient was seen today along with his nurse, César. The patient remains intubated and on mechanical ventilation. ABGs on mechanical ventilation and an FiO2 of 40% showed a pH of 7.430 and a PO2 of 110. Were going to decrease his rate to 12 and decrease his FiO2 to 35%. Chest x-ray shows a questionable right lower lobe infiltrate. He is on Zosyn and we made no adjustments to this today. Sputum Gram stain showed no organisms and sputum culture is growing no organisms. Blood cultures are negative thus far. Urine cultures growing organisms. We have discussed the case with Dr. Hanna this morning and coordinated her care. Cold agglutinins and Legionella are negative. He is on IV Aminophyllin and theophylline level today is less than 2.0. Medications have been reviewed. We made no changes today. Labs been reviewed. White count is 12,100 with 85.8% segs; H&H 14.9/42.0; platelet count 120,000; creatinine 0.70, BUN 13, electrolytes were normal; calcium is low at 8.4, ammonia 23; Dilantin level 3.7, theophylline level less than 2.0; ABGs this morning on mechanical ventilation and an FiO2 of 40% showed pH 7.430, PCO2 44.5, PO2 110.0, bicarb 28.4, and oxygen saturation 98.2% Exam (Progress Note) - Constitutional Vitals: Period Temp Pulse Resp BP Sys/Centeno Pulse Ox Last 24 Hr 96.3 F-97.6 F 51-75 10-47 100-144/58-94 94-100 Exam: Chest is hyperinflated with mild coarse large airway congestion Heart no gallop Abdomen is obese but nontender and nondistended; rare bowel sounds Lower extremities with nothing to suggest acute deep venous thrombophlebitis Psychiatric arousable when sedation is decreased Neurologic the patient moves all 4 extremities Plan: Changes as above. Continue vent weaning protocol and advance as tolerated. Continue physical therapy protocol. Daily chest x-ray and ABGs while on ventilator. Continue present treatment. See orders. Results - Labs CBC & BMP: 01/27/17 10:46 01/27/17 07:58
[2017-01-27] MEDS: LORazepam 2 MG/1 ML VIAL IV PRN (14:17)
--- NOTE | 2017-01-27 14:22 | Hospitalist Progress Note ---
Assessment and Plan (1) Respiratory failure, [id number] Status: Acute Assessment and plan: not tolerating cpap, allow PCO2 to increase to 60, will hope to extubate soon Current Visit: No Qualifiers: Respiratory failure complication: hypoxia and hypercapnia (2) Seizure disorder Problem details: Continue home meds Status: Chronic Assessment and plan: dilantin level subtherapeutic, dilantin 1000 mg IV load, cont dilantin 100 mg po tid Current Visit: No (3) Pulmonary hypertension Problem details: Appreciate recs from Pulm. Continue current medical treatment regimen. Status: Chronic Assessment and plan: Dr. Horton, intubated. Echo last PAP 55 Current Visit: No (4) Acute exacerbation of chronic obstructive pulmonary disease (COPD) Status: Acute Assessment and plan: duoneb and steroids Current Visit: Yes (5) Hypertension, essential Status: Acute Assessment and plan: cont coreg, will add low dose of losartan Current Visit: Yes (6) Uncontrolled diabetes mellitus Status: Acute Assessment and plan: hgb A1c 5.8 controlled, ISC Current Visit: Yes Qualifiers: Diabetes mellitus complication status: without complication (7) Dehydration Status: Acute Assessment and plan: HL IVF due to worsening right pleural effusion Current Visit: Yes (8) Elevated liver enzymes Status: Acute Assessment and plan: repeat liver profile, ammonia level, hepatitis panel Current Visit: Yes Hospitalist: Subjective Interval history: Patient is not doing well on CPAP as he gets extremely anxious. He will most likely have to be just quickly extubated. I have spoke with Dr. Souza and we have discussed his case he believes that his CO2 needs to increase to about 60 and we will attempt to extubate him on Monday. Exam - Constitutional Vitals: Period Temp Pulse Resp BP Sys/Centeno Pulse Ox Last 24 Hr 96.3 F-97.6 F 51-82 10-47 100-151/59-94 95-100 Exam: Heart Rate-[RRR] Lungs-[clear] GI-[+bs soft, NT] Ext-[no edema] Neuro sedated and intubated. psych unable to evaluate due to sedation General [no acute distress] Results - Labs CBC & BMP: 01/27/17 10:46 01/27/17 07:58 Lab Results: I have reviewed the past 24 hour labs Labs: Sputum growing normal phani, influenza negative, urine culture no growth, blood cultures 2 negative no growth. dilantin level 3.7 - Diagnostic Findings Procedure: Chest x-ray: report reviewed by me (enlarging right pleural effusion )
[2017-01-27] MEDS ORDERED: FUROSEMIDE 40 MG/4 ML VIAL IV ONE (14:41)
[2017-01-27] MEDS: LOSARTAN 25 MG TABLET PO SCH (15:10)
[2017-01-27 15:19] LABS: Ammonia 23 UMOL/L (11-32)
[2017-01-27 15:24] LABS: Alanine Aminotransferase 38 U/L (16-61); Albumin 3.1 G/DL (3.4-5.0); Alkaline Phosphatase 80 U/L (45-117); Aspartate Amino Transferase 17 U/L (0-37); Bilirubin,Direct < 0.100 MG/DL (0.0-0.20); Bilirubin,Indirect 1.2 MG/DL (0.0-1.0); Total Protein 6.1 G/DL (6.4-8.3)
[2017-01-27] MEDS ORDERED: PHENYTOIN INJ 1,000 MG in SODIUM CHLORIDE 0.9% 100 ML IV ONE (15:30)
--- NOTE | 2017-01-27 16:38 | Post Interventional Procedure ---
Pre-op diagnosis: CHF, peripheral swelling, loss of peripheral IV access Post-op diagnosis: same Procedure: PICC line l right upper extrema Radiologist: José Miguel Chavez Anesthesia: local Specimens: none sent Estimated blood loss: none Complications: none Condition: stable Assessment and Plan - Time spent with patient Time spent with patient: Less than 30 minutes
--- NOTE | 2017-01-27 17:03 | XRay Report ---
XR chest post procedure, IR PICC line insertion, US guide vascular access Indication: CHF. Peripheral edema. Loss of peripheral IV access. PICC LINE AT BEDSIDE Description: A formal timeout was performed. Maximum sterile barrier technique was used. Sonographic evaluation of the right upper extremity demonstrates patent and compressible brachial vein. The upper arm was prepped and draped in sterile fashion. 3 cc 1% lidocaine was administered subcutaneously. Under sonographic guidance, a micropuncture needle was advanced into the vein. A captured sonographic image documents the position of the needle. Needle was exchanged over a wire for a peel-away sheath. Using portable digital radiography, the guidewire was advanced to the RA-SVC junction. A dual lumen power PICC, 34 cm long, was advanced over the wire. The wire and sheath were removed. Both ports of the PICC were aspirated and flushed with heparinized saline. The device was secured with a StatLock. A post procedure chest radiograph was then obtained to document the position of the catheter in PACS. It shows PICC line to terminate in the SVC. Fluoroscopy: Bedside digital radiography. Impression: PICC line ready for immediate use. Routine catheter care. Chest radiograph detailed above post procedure. PROCEDURE INTERPRETED AT [facility] DEPARTMENT OF RADIOLOGY Final Report Signed by: José Miguel Chavez M.D.
[2017-01-27 17:56] LABS: Hepatitis A Ab IgM Quant 0.06 Index; Hepatitis A Ab IgM Result Negative (Negative); Hepatitis B Core IgM Quant 0.13 Index; Hepatitis B Core IgM Result Negative (Negative); Hepatitis B Surface Ag Quant 0.36 Index; Hepatitis B Surface Ag Result Negative (Negative); Hepatitis C Virus Ab Quant 0.02 Index; Hepatitis C Virus Ab Result Negative (Negative)
[2017-01-28] MEDS: INSULIN REGULAR 100 UNIT/ML SUBCUT SCH ×5 (00:12→18:03)
[2017-01-28] MEDS: ALBUTEROL/IPRATROPIUM 3 ML NEB RESP TX SCH ×4 (01:56→19:10)
[2017-01-28] MEDS: PROPOFOL 1,000 MG/100 ML BOTTLE IV SCH ×9 (02:46→21:40)
[2017-01-28] MEDS: AMINOPHYLLINE 500 MG in SODIUM CHLORIDE 0.9% 480 ML IV SCH ×2 (02:47→20:13)
[2017-01-28] MEDS: PIPERACILLIN/TAZOBACTAM 3,375 MG in SODIUM CHLORIDE 0.9% 100 ML IV SCH ×3 (03:43→20:37)
[2017-01-28] MEDS: ENOXAPARIN 40 MG/0.4 ML SYRINGE SUBCUT SCH (03:44)
[2017-01-28 04:14] LABS: ABG Base Excess 6.5 MMOL/L (-2.5-2.5); ABG HCO3 31.9 MMOL/L (20-26); ABG Oxygen Saturation 96.8 % (95-100); ABG PCO2 47.8 MM HG (35-48); ABG PH 7.442 (7.35-7.45); ABG PO2 84.8 MM HG (80-95); ABG TCO2 33.4 MMOL/L (23-27); Allen Test Positive; Pt O2 Delivery Device Ventilator
[2017-01-28 04:45] LABS: Basophils % 0.2 % (0.0-0.8); Hemoglobin 15.5 GM/DL (14.0-18.0); Immature Granulocytes % 0.8 %; Immature Granulocytes Absolute 0.09 #; Lymphocytes % 8.9 % (21.2-54.2); Mean Corpuscular HGB Conc 35.2 GM/DL (32-36); Mean Corpuscular Hemoglobin 31 PG (27-34); Mean Corpuscular Volume 88.4 FL (87-102); Mean Platelet Volume 10.7 FL (9.6-12.0); Monocytes # 0.7 10*3/uL (0.11-0.8); Monocytes % 6.9 % (1.7-12.7); Neutrophils # 8.9 10*3/uL (1.4-7.4); Neutrophils % 83.2 % (38.7-73.9); Platelet Count 134 T/CUMM (130-400); Red Blood Count 4.98 MC/CUMM (3.8-5.5); Red Cell Distribution Width 13.1 % (9.3-17.3); White Blood Count 10.7 T/CUMM (4-12)
[2017-01-28 05:01] LABS: Calcium 7.8 MG/DL (8.5-10.1); Potassium 3.9 MMOL/L (3.5-5.1)
[2017-01-28] MEDS: methylPREDNISolone SOD SUC 40 MG/1 ML VIAL IV SCH ×3 (06:05→21:31)
[2017-01-28] MEDS: MONTELUKAST 10 MG TABLET PO SCH (09:01)
[2017-01-28] MEDS: PHENYTOIN 100 MG/4 ML UDCUP PO SCH ×3 (09:02→21:30)
[2017-01-28] MEDS: PANTOPRAZOLE 40 MG VIAL IV SCH (09:02)
[2017-01-28] MEDS: CARVEDILOL 3.125 MG TABLET PO SCH ×2 (09:02→21:28)
--- NOTE | 2017-01-28 09:45 | XRay Report ---
Portable chest January 28, 2017 Indication: Shortness of breath Comparison images from previous day at 0418 hours Findings: Cardiomediastinal contours are stable. Tubes and lines are unchanged. Bibasilar atelectasis with likely small effusions, likely unchanged. Osseous structures are unremarkable. Impression: No interval change in appearance the chest with persistent bibasilar atelectasis and likely small effusions. PROCEDURE INTERPRETED AT [facility] DEPARTMENT OF RADIOLOGY Final Report Signed by: Manuel Mckeon
[2017-01-28] MEDS: ALUMINUM/MAGNES/SIMETH MAX STR 30 ML UDCUP PO SCH ×4 (10:38→21:31)
--- NOTE | 2017-01-28 11:11 | Pulmonology Progress Note ---
Pulmonary - PN: Subj Interval history: This is a 61-year-old white male whom I saw in pulmonary consultation on 2016. I have seen this patient in the past. He has a long history of noncompliance with medications. He also in the past has been very difficult to wean from mechanical ventilation and usually he requires a PCO2 of approximately 60 My impressions were. 1. Acute respiratory failure for oxygen and carbon dioxide requiring intubation mechanical ventilation 2. Probable right lower lung pneumonia 3. Obstructive lung disease with bronchospastic disease 4. Heart disease with past history of congestive heart failure 5. Tobacco abuse 6. Noncompliant patient 7. Seizure disorder 8. History of high blood pressure 9. Pulmonary hypertension. Most likely secondary to hypoxemia, COPD and obstructive sleep apnea. 10. See past history 11. Past history of tracheotomy 01/26/2017. Today's x-ray shows hyperinflation is possible faint infiltrate in the lateral basal segment of the left lower lung. ABGs on mechanical ventilation FiO2 of 40% shows a pH 7.507 PCO2 36 PO2 of 128 and a bicarb of 29.3. Ventilator changes have been made to allow the patient's CO2 to increase. He is on a weaning protocol. Electrolytes are normal. Creatinine is 0.8 with a BUN of 18 white count is 9680 segs H&H 14.2/40.9. Patient is on IV Aminophyllin. Aminophyllin level is pending. He is on infusion at 22 mg/h. He was not loaded with theophylline and his admit level was less than 2.0 consistent with noncompliance with his medicines. 01/28/2017. Patient's chest x-ray is stable. Heart size is top normal. No infiltrates. No heart failure. No pneumothorax. Endotracheal tube is in good position. ABGs are noted. Have cut back on the patient's assist control rate. He will require a PCO2 of about 60 in order to extubate him. Patient did fairly well for a period of time on CPAP yesterday. Eventually he became very anxious and had to be put back on the ventilator. His girlfriend has told staff that the patient does not take any of his medicines. She says he is confused most of the time at home. There are no positive cultures. Electrolytes are normal and creatinine is 0.7. CBC is stable. White count is 10,700 with 83 segs 9 lymphs. Theophylline level 6.5. We can leave it at this level is a peripheral wheezes seem to have resolved Physical exam. Psychiatric arousable. Neurologic. Cranial nerves are been intact and patient moves all 4 extremities Face. Symmetrical. No edema of the lips and tongue Neck. Symmetrical no meningismus Chest. Hyperinflated mild coarse large airway congestion Heart. No gallop Abdomen. Nondistended. Only rare bowel sounds Lower extremities. No edema nothing to suggest deep venous thrombophlebitis Lymphatics. No submandibular cervical supraclavicular or epitrochlear adenopathy The remainder the physical exam is negative. Plan. 01/25/2017 1. Mechanical ventilation. Ventilator weaning protocol. Ventilator physical therapy protocol. 2. Sputum for Gram stain culture and sensitivity 3. Legionella titer 4. Cold agglutinins. 5. Daily chest x-ray and ABGs 6. See orders 7. Based on this patient's past hospitalization he will probably require a PCO2 of about 50-60 in order to weaning from the ventilator. 8. Note history of seizure disorder. Agree with restarting Dilantin 9. Theophylline level 01/26/2017. 1. Weaning protocol 2. Keep PCO2 approximately 60 3. Daily chest x-rays and ABGs. 4. Have ordered daily theophylline 12/28/2016. 1. Decrease assist control today. That is PCO2 rise to 60 2. Continue weaning protocol 3. Daily chest x-ray ABGs and lab Exam (Progress Note) - Constitutional Vitals: Period Temp Pulse Resp BP Sys/Centeno Pulse Ox Last 24 Hr 96.3 F-97.5 F 59-90 10-21 102-151/66-99 95-100 Results - Labs CBC & BMP: 01/28/17 04:16 01/28/17 04:16
[2017-01-28] MEDS: LOSARTAN 25 MG TABLET PO SCH (11:57)
--- NOTE | 2017-01-28 13:09 | Hospitalist Progress Note ---
Assessment and Plan (1) Respiratory failure, [id number] Status: Acute Assessment and plan: Continue to allow PCO2 to increase to 60, will hope to extubate soon Current Visit: No Qualifiers: Respiratory failure complication: hypoxia and hypercapnia (2) Seizure disorder Problem details: Continue home meds Status: Chronic Assessment and plan: Continue Dilantin at 150 mg po tid Current Visit: No (3) Pulmonary hypertension Problem details: Appreciate recs from Pulm. Continue current medical treatment regimen. Status: Chronic Assessment and plan: Dr. Horton, intubated. Echo last PAP 55 Current Visit: No (4) Acute exacerbation of chronic obstructive pulmonary disease (COPD) Status: Acute Assessment and plan: duoneb and steroids Current Visit: Yes (5) Hypertension, essential Status: Acute Assessment and plan: controlled with coreg and losartan Current Visit: Yes (6) Uncontrolled diabetes mellitus Status: Acute Assessment and plan: hgb A1c 5.8 controlled, ISC Current Visit: Yes Qualifiers: Diabetes mellitus complication status: without complication (7) Dehydration Status: Acute Assessment and plan: resolved Current Visit: Yes (8) Elevated liver enzymes Status: Acute Assessment and plan: repeat liver profile, liver enzymes has returned to normal, normal ammonia level , hepatitis panel negative Current Visit: Yes Hospitalist: Subjective Interval history: Patient is still not had a bowel movement in several days. We will try Mylanta continuously until he starts having bowel movements. Dr. Horton still wants to CO2 a little higher before we try extubation. Patient does not have a but he does have a girlfriend that lives with him. I would like to speak with her during the next visiting times to give her an update. Exam - Constitutional Vitals: Period Temp Pulse Resp BP Sys/Centeno Pulse Ox Last 24 Hr 96.8 F-98 F 62-90 10- 102-151/66-99 95-100 Exam: Heart Rate-[RRR] Lungs-[clear] GI-[+bs soft, NT] Ext-[no edema] Neuro sedated and intubated. psych unable to evaluate due to sedation General [no acute distress] Results - Labs CBC & BMP: 01/28/17 04:16 01/28/17 04:16 Lab Results: I have reviewed the past 24 hour labs Labs: Blood cultures, sputum cultures negative no growth - Diagnostic Findings Procedure: Chest x-ray: report reviewed by me (Persistent bilateral atelectasis and pleural effusion)
[2017-01-28] MEDS: LORazepam 2 MG/1 ML VIAL IV PRN (20:37)
[2017-01-29] MEDS: ALBUTEROL/IPRATROPIUM 3 ML NEB RESP TX SCH ×4 (00:07→19:18)
[2017-01-29] MEDS: PROPOFOL 1,000 MG/100 ML BOTTLE IV SCH ×7 (00:15→23:55)
[2017-01-29] MEDS: INSULIN REGULAR 100 UNIT/ML SUBCUT SCH ×4 (01:05→18:40)
[2017-01-29] MEDS: ALUMINUM/MAGNES/SIMETH MAX STR 30 ML UDCUP PO SCH ×6 (02:14→21:12)
[2017-01-29 03:21] LABS: ABG Base Excess 6.9 MMOL/L (-2.5-2.5); ABG HCO3 33.4 MMOL/L (20-26); ABG Oxygen Saturation 96.9 % (95-100); ABG PCO2 53.9 MM HG (35-48); ABG PO2 88.5 MM HG (80-95); ABG TCO2 35.1 MMOL/L (23-27); Allen Test Positive; Pt O2 Delivery Device Ventilator
[2017-01-29] MEDS: ENOXAPARIN 40 MG/0.4 ML SYRINGE SUBCUT SCH (03:23)
[2017-01-29] MEDS: methylPREDNISolone SOD SUC 40 MG/1 ML VIAL IV SCH ×3 (04:45→21:12)
[2017-01-29] MEDS: PIPERACILLIN/TAZOBACTAM 3,375 MG in SODIUM CHLORIDE 0.9% 100 ML IV SCH ×3 (04:45→20:38)
[2017-01-29] MEDS: MIDAZOLAM 100 MG in SODIUM CHLORIDE 0.9% 80 ML IV SCH (09:20)
[2017-01-29] MEDS: PHENYTOIN 100 MG/4 ML UDCUP PO SCH ×3 (09:51→21:12)
[2017-01-29] MEDS: CARVEDILOL 3.125 MG TABLET PO SCH ×2 (09:51→21:12)
[2017-01-29] MEDS: MONTELUKAST 10 MG TABLET PO SCH (09:51)
[2017-01-29] MEDS: PANTOPRAZOLE 40 MG VIAL IV SCH (09:51)
--- NOTE | 2017-01-29 10:29 | Pulmonology Progress Note ---
Pulmonary - PN: Subj Interval history: This is a 61-year-old white male whom I saw in pulmonary consultation on 2016. I have seen this patient in the past. He has a long history of noncompliance with medications. He also in the past has been very difficult to wean from mechanical ventilation and usually he requires a PCO2 of approximately 60 My impressions were. 1. Acute respiratory failure for oxygen and carbon dioxide requiring intubation mechanical ventilation 2. Probable right lower lung pneumonia 3. Obstructive lung disease with bronchospastic disease 4. Heart disease with past history of congestive heart failure 5. Tobacco abuse 6. Noncompliant patient 7. Seizure disorder 8. History of high blood pressure 9. Pulmonary hypertension. Most likely secondary to hypoxemia, COPD and obstructive sleep apnea. 10. See past history 11. Past history of tracheotomy 01/26/2017. Today's x-ray shows hyperinflation is possible faint infiltrate in the lateral basal segment of the left lower lung. ABGs on mechanical ventilation FiO2 of 40% shows a pH 7.507 PCO2 36 PO2 of 128 and a bicarb of 29.3. Ventilator changes have been made to allow the patient's CO2 to increase. He is on a weaning protocol. Electrolytes are normal. Creatinine is 0.8 with a BUN of 18 white count is 9680 segs H&H 14.2/40.9. Patient is on IV Aminophyllin. Aminophyllin level is pending. He is on infusion at 22 mg/h. He was not loaded with theophylline and his admit level was less than 2.0 consistent with noncompliance with his medicines. 01/28/2017. Patient's chest x-ray is stable. Heart size is top normal. No infiltrates. No heart failure. No pneumothorax. Endotracheal tube is in good position. ABGs are noted. Have cut back on the patient's assist control rate. He will require a PCO2 of about 60 in order to extubate him. Patient did fairly well for a period of time on CPAP yesterday. Eventually he became very anxious and had to be put back on the ventilator. His girlfriend has told staff that the patient does not take any of his medicines. She says he is confused most of the time at home. There are no positive cultures. Electrolytes are normal and creatinine is 0.7. CBC is stable. White count is 10,700 with 83 segs 9 lymphs. Theophylline level 6.5. We can leave it at this level is a peripheral wheezes seem to have resolved 01/29/2017.And to prevent.Versed appears to work better for sedation HEENT patient has been changed to Versed. Chest x-ray. Mild to moderate bibasilar atelectasis. No heart failure. Endotracheal tube is in good position. No pneumothorax. ABGs on FiO2 35% assist control of 8 shows a pH of 7.41, PCO2 53.9, PO2 88.5 and a bicarb of 33.4. I will decrease the patient's assist control to 6. We will continue his weaning protocol per yesterday he did 4 hours of CPAP. Will start patient on Diamox 250 mg IV push every 12 hours. Physical exam. Psychiatric arousable. Neurologic. Cranial nerves are been intact and patient moves all 4 extremities Face. Symmetrical. No edema of the lips and tongue Neck. Symmetrical no meningismus Chest. Hyperinflated mild coarse large airway congestion Heart. No gallop Abdomen. Nondistended. Only rare bowel sounds Lower extremities. No edema nothing to suggest deep venous thrombophlebitis Lymphatics. No submandibular cervical supraclavicular or epitrochlear adenopathy The remainder the physical exam is negative. Plan. 01/25/2017 1. Mechanical ventilation. Ventilator weaning protocol. Ventilator physical therapy protocol. 2. Sputum for Gram stain culture and sensitivity 3. Legionella titer 4. Cold agglutinins. 5. Daily chest x-ray and ABGs 6. See orders 7. Based on this patient's past hospitalization he will probably require a PCO2 of about 50-60 in order to weaning from the ventilator. 8. Note history of seizure disorder. Agree with restarting Dilantin 9. Theophylline level 01/26/2017. 1. Weaning protocol 2. Keep PCO2 approximately 60 3. Daily chest x-rays and ABGs. 4. Have ordered daily theophylline 01/28/2017. 1. Decrease assist control today. That is PCO2 rise to 60 2. Continue weaning protocol 3. Daily chest x-ray ABGs and lab 01/29/2017. 1. Assist-control decreased to 6. 2. Start Diamox 250 every 12 hours 3. See today's note above. Exam (Progress Note) - Constitutional Vitals: Period Temp Pulse Resp BP Sys/Centeno Pulse Ox Last 24 Hr 97.4 F-98 F 60-81 8-22 107-136/65-114 95-100 Results - Labs CBC & BMP: 01/28/17 04:16 01/28/17 04:16
--- NOTE | 2017-01-29 11:19 | XRay Report ---
Portable chest January 29, 2017 Indication: Difficulty breathing Comparison images from previous day at 0258 hours Findings: Tubes and lines remain in satisfactory position. Cardiomediastinal contours are stable. Bibasilar atelectasis and likely small effusions are unchanged in appearance. No acute osseous abnormalities. Impression: Stable appearance of the bibasilar atelectasis and small effusions PROCEDURE INTERPRETED AT [facility] DEPARTMENT OF RADIOLOGY Final Report Signed by: Manuel Mckeon
[2017-01-29] MEDS: AMINOPHYLLINE 500 MG in SODIUM CHLORIDE 0.9% 480 ML IV SCH (14:00)
--- NOTE | 2017-01-29 15:10 | Hospitalist Progress Note ---
Assessment and Plan (1) Respiratory failure, [id number] Status: Acute Assessment and plan: Continue ventilation hopefully extubate soon. Dr. Horton seen daily. Current Visit: No Qualifiers: Respiratory failure complication: hypoxia and hypercapnia (2) Seizure disorder Problem details: Continue home meds Status: Chronic Assessment and plan: Continue Dilantin at 150 mg po tid Current Visit: No (3) Pulmonary hypertension Problem details: Appreciate recs from Pulm. Continue current medical treatment regimen. Status: Chronic Assessment and plan: Dr. Horton, intubated. Echo last PAP 55 Current Visit: No (4) Acute exacerbation of chronic obstructive pulmonary disease (COPD) Status: Acute Assessment and plan: duoneb and steroids Current Visit: Yes (5) Hypertension, essential Status: Acute Assessment and plan: controlled with coreg Current Visit: Yes (6) Uncontrolled diabetes mellitus Status: Acute Assessment and plan: hgb A1c 5.8 controlled, ISC Current Visit: Yes Qualifiers: Diabetes mellitus complication status: without complication (7) Dehydration Status: Acute Assessment and plan: resolved Current Visit: Yes (8) Elevated liver enzymes Status: Acute Assessment and plan: repeat liver profile normal Current Visit: Yes Hospitalist: Subjective Interval history: Dr. Horton feels he is not ready to extubate yet. He still not had a bowel movement but he is passing gas. Continue the Mylanta. Updated patient's live- in girlfriend yesterday. Exam - Constitutional Vitals: Period Temp Pulse Resp BP Sys/Centeno Pulse Ox Last 24 Hr 97.4 F-98 F 60-81 8-22 111-140/68-114 95-100 Exam: Heart Rate-[RRR] Lungs-[clear] GI-[+bs soft, NT] Ext-[no edema] Neuro agitated and combative psych agitated General [no acute distress] Results - Labs CBC & BMP: 01/28/17 04:16 01/28/17 04:16 Lab Results: I have reviewed the past 24 hour labs Labs: Blood cultures 2 negative no growth - Diagnostic Findings Procedure: Chest x-ray: report reviewed by me (Bibasilar atelectasis and small effusion)
[2017-01-30] MEDS: MIDAZOLAM 100 MG in SODIUM CHLORIDE 0.9% 80 ML IV SCH ×3 (00:10→20:55)
[2017-01-30] MEDS: INSULIN REGULAR 100 UNIT/ML SUBCUT SCH ×4 (01:00→18:00)
[2017-01-30] MEDS: ALUMINUM/MAGNES/SIMETH MAX STR 30 ML UDCUP PO SCH ×3 (01:00→09:00)
[2017-01-30] MEDS: ALBUTEROL/IPRATROPIUM 3 ML NEB RESP TX SCH ×4 (01:21→19:14)
[2017-01-30] MEDS: ENOXAPARIN 40 MG/0.4 ML SYRINGE SUBCUT SCH (04:24)
[2017-01-30] MEDS: methylPREDNISolone SOD SUC 40 MG/1 ML VIAL IV SCH ×3 (04:24→21:40)
[2017-01-30] MEDS: PIPERACILLIN/TAZOBACTAM 3,375 MG in SODIUM CHLORIDE 0.9% 100 ML IV SCH ×3 (04:24→20:44)
[2017-01-30 04:45] LABS: ABG Base Excess 2.3 MMOL/L (-2.5-2.5); ABG HCO3 26.4 MMOL/L (20-26); ABG PCO2 58.4 MM HG (35-48); ABG PH 7.325 (7.35-7.45); ABG PO2 97.9 MM HG (80-95); Allen Test Positive; Pt O2 Delivery Device Ventilator
[2017-01-30] MEDS: PROPOFOL 1,000 MG/100 ML BOTTLE IV SCH ×4 (06:15→18:15)
[2017-01-30 06:34] LABS: Magnesium 2.9 MG/DL (1.8-2.4); Phosphorous 3.6 MG/DL (2.5-4.9); Prealbumin 50.2 MG/DL (20-40)
[2017-01-30] MEDS: AMINOPHYLLINE 500 MG in SODIUM CHLORIDE 0.9% 480 ML IV SCH (08:30)
--- NOTE | 2017-01-30 08:55 | XRay Report ---
Portable chest January 30, 2017 0254 hours Indication: Respiratory failure Comparison images from previous day at 0320 hours Findings: Tubes and lines remain in satisfactory position. Cardiomediastinal contours are stable. Bibasilar atelectasis and likely small effusions are unchanged. No acute osseous abnormalities. Impression: No interval change in the appearance the chest PROCEDURE INTERPRETED AT [facility] [place] DEPARTMENT OF RADIOLOGY Final Report Signed by: Manuel Mckeon
[2017-01-30] MEDS: CARVEDILOL 3.125 MG TABLET PO SCH ×2 (09:20→21:40)
[2017-01-30] MEDS: MONTELUKAST 10 MG TABLET PO SCH (09:20)
[2017-01-30] MEDS: PANTOPRAZOLE 40 MG VIAL IV SCH (09:20)
[2017-01-30] MEDS: PHENYTOIN 100 MG/4 ML UDCUP PO SCH ×3 (09:20→21:40)
[2017-01-30] MEDS ORDERED: ALUMINUM/MAGNES/SIMETH MAX STR 30 ML UDCUP PO PRN (09:39)
--- NOTE | 2017-01-30 11:58 | Pulmonology Progress Note ---
Pulmonary - PN: Subj Interval history: This is a 61-year-old white male whom I saw in pulmonary consultation on 2016. I have seen this patient in the past. He has a long history of noncompliance with medications. He also in the past has been very difficult to wean from mechanical ventilation and usually he requires a PCO2 of approximately 60 My impressions were. 1. Acute respiratory failure for oxygen and carbon dioxide requiring intubation mechanical ventilation 2. Probable right lower lung pneumonia 3. Obstructive lung disease with bronchospastic disease 4. Heart disease with past history of congestive heart failure 5. Tobacco abuse 6. Noncompliant patient 7. Seizure disorder 8. History of high blood pressure 9. Pulmonary hypertension. Most likely secondary to hypoxemia, COPD and obstructive sleep apnea. 10. See past history 11. Past history of tracheotomy 01/26/2017. Today's x-ray shows hyperinflation is possible faint infiltrate in the lateral basal segment of the left lower lung. ABGs on mechanical ventilation FiO2 of 40% shows a pH 7.507 PCO2 36 PO2 of 128 and a bicarb of 29.3. Ventilator changes have been made to allow the patient's CO2 to increase. He is on a weaning protocol. Electrolytes are normal. Creatinine is 0.8 with a BUN of 18 white count is 9680 segs H&H 14.2/40.9. Patient is on IV Aminophyllin. Aminophyllin level is pending. He is on infusion at 22 mg/h. He was not loaded with theophylline and his admit level was less than 2.0 consistent with noncompliance with his medicines. 01/28/2017. Patient's chest x-ray is stable. Heart size is top normal. No infiltrates. No heart failure. No pneumothorax. Endotracheal tube is in good position. ABGs are noted. Have cut back on the patient's assist control rate. He will require a PCO2 of about 60 in order to extubate him. Patient did fairly well for a period of time on CPAP yesterday. Eventually he became very anxious and had to be put back on the ventilator. His girlfriend has told staff that the patient does not take any of his medicines. She says he is confused most of the time at home. There are no positive cultures. Electrolytes are normal and creatinine is 0.7. CBC is stable. White count is 10,700 with 83 segs 9 lymphs. Theophylline level 6.5. We can leave it at this level is a peripheral wheezes seem to have resolved 01/29/2017.And to prevent.Versed appears to work better for sedation HEENT patient has been changed to Versed. Chest x-ray. Mild to moderate bibasilar atelectasis. No heart failure. Endotracheal tube is in good position. No pneumothorax. ABGs on FiO2 35% assist control of 8 shows a pH of 7.41, PCO2 53.9, PO2 88.5 and a bicarb of 33.4. I will decrease the patient's assist control to 6. We will continue his weaning protocol per yesterday he did 4 hours of CPAP. Will start patient on Diamox 250 mg IV push every 12 hours. 01/30/2017. Chest x-ray shows enlarged pulmonary arteries. There is no hilar adenopathy. There is calcification aortic knob. Endotracheal tube is in good position there is bibasilar atelectasis. There is no heart failure. No pneumothorax. There are no positive cultures. ABGs on mechanical ventilation with assist control of 6 and FiO2 35% shows a pH of 7.325, PCO2 is 58.4, PO2 is 97.9 and bicarb is 26.4. Patient did not do very good with his CPAP trials yesterday and I am not sure why. In the past she has been very difficult to wean him when taken off several times he is required reintubation. This is been discussed with Dr. Hanna. Glucoses are normal. We will continue to weaning protocol and when things look opportune will try to extubate the patient. 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 Psychiatric arousable. Neurologic. Cranial nerves are been intact and patient moves all 4 extremities Face. Symmetrical. No edema of the lips and tongue Neck. Symmetrical no meningismus Chest. Hyperinflated mild coarse large airway congestion Heart. No gallop Abdomen. Nondistended. Only rare bowel sounds Lower extremities. No edema nothing to suggest deep venous thrombophlebitis Lymphatics. No submandibular cervical supraclavicular or epitrochlear adenopathy The remainder the physical exam is negative. Plan. 01/25/2017 1. Mechanical ventilation. Ventilator weaning protocol. Ventilator physical therapy protocol. 2. Sputum for Gram stain culture and sensitivity 3. Legionella titer 4. Cold agglutinins. 5. Daily chest x-ray and ABGs 6. See orders 7. Based on this patient's past hospitalization he will probably require a PCO2 of about 50-60 in order to weaning from the ventilator. 8. Note history of seizure disorder. Agree with restarting Dilantin 9. Theophylline level 01/26/2017. 1. Weaning protocol 2. Keep PCO2 approximately 60 3. Daily chest x-rays and ABGs. 4. Have ordered daily theophylline 01/28/2017. 1. Decrease assist control today. That is PCO2 rise to 60 2. Continue weaning protocol 3. Daily chest x-ray ABGs and lab 01/29/2017. 1. Assist-control decreased to 6. 2. Start Diamox 250 every 12 hours 3. See today's note above. 01/30/2017. 1. Continue weaning protocol 2. See my note above Exam (Progress Note) - Constitutional Vitals: Period Temp Pulse Resp BP Sys/Centeno Pulse Ox Last 24 Hr 97.6 F-98.0 F 58-78 6-20 101-146/67-95 95-100 Results - Labs CBC & BMP: 01/28/17 04:16 01/28/17 04:16
--- NOTE | 2017-01-30 11:59 | Hospitalist Progress Note ---
Assessment and Plan (1) Respiratory failure, [id number] Status: Acute Assessment and plan: Continue Zosyn, plan bronchoscopy in a.m. Discussed case with Dr. Souza and he still not comfortable extubating him today but possibly tomorrow Current Visit: No Qualifiers: Qualified Code(s): J96.21 - Acute and chronic respiratory failure with hypoxia; J96.22 - Acute and chronic respiratory failure with hypercapnia (2) Seizure disorder Problem details: Continue home meds Status: Chronic Assessment and plan: Continue Dilantin at 150 mg po tid Current Visit: No (3) Pulmonary hypertension Problem details: Appreciate recs from Pulm. Continue current medical treatment regimen. Status: Chronic Assessment and plan: Dr. Horton, intubated. Echo last PAP 55 Current Visit: No (4) Acute exacerbation of chronic obstructive pulmonary disease (COPD) Status: Acute Assessment and plan: duoneb and steroids Current Visit: Yes (5) Hypertension, essential Status: Acute Assessment and plan: controlled with coreg Current Visit: Yes (6) Uncontrolled diabetes mellitus Status: Acute Assessment and plan: hgb A1c 5.8 controlled, ISC Current Visit: Yes (7) Dehydration Status: Acute Assessment and plan: resolved Current Visit: Yes (8) Elevated liver enzymes Status: Acute Assessment and plan: repeat liver profile normal Current Visit: Yes Hospitalist: Subjective Interval history: Patient sounds like he has more rhonchi today. Dr. Souza plans on walking him tomorrow morning. He is finally having good bowel movements and we will change his Mylanta 2 as needed. We will continue him on Zosyn for antibiotics. Nursing recommended to start him on some Tranxene for agitation to help in to control his moods with the diprivan. Doubt extubation in am Exam - Constitutional Vitals: Period Temp Pulse Resp BP Sys/Centeno Pulse Ox Last 24 Hr 97.6 F-98.0 F 58-78 6-20 101-146/67-95 95-100 Exam: Heart Rate-[RRR] Lungs-[coarse rhonchi bilateral GI-[+bs soft, NT] Ext-[no edema] Neuro agitated and combative psych agitated General [no acute distress] Results - Labs CBC & BMP: 01/28/17 04:16 01/28/17 04:16 Lab Results: I have reviewed the past 24 hour labs Labs: Blood cultures negative no growth, sputum culture normal phani - Diagnostic Findings Procedure: Chest x-ray: report reviewed by me (Bibasilar atelectasis and small effusions down)
[2017-01-30] MEDS: CLORAZEPATE 7.5 MG TABLET PO SCH ×2 (15:00→21:40)
[2017-01-31] MEDS: INSULIN REGULAR 100 UNIT/ML SUBCUT SCH ×4 (00:02→18:30)
[2017-01-31] MEDS: ALBUTEROL/IPRATROPIUM 3 ML NEB RESP TX SCH ×4 (00:28→19:22)
[2017-01-31] MEDS: PROPOFOL 1,000 MG/100 ML BOTTLE IV SCH ×8 (00:50→21:30)
[2017-01-31] MEDS: AMINOPHYLLINE 500 MG in SODIUM CHLORIDE 0.9% 480 ML IV SCH ×3 (01:25→18:30)
[2017-01-31 03:24] LABS: ABG HCO3 24.4 MMOL/L (20-26); ABG Oxygen Saturation 97.4 % (95-100); ABG PCO2 53.7 MM HG (35-48); ABG PH 7.317 (7.35-7.45); ABG TCO2 23.6 MMOL/L (23-27); Pt O2 Delivery Device Ventilator
[2017-01-31] MEDS: ENOXAPARIN 40 MG/0.4 ML SYRINGE SUBCUT SCH (04:19)
[2017-01-31] MEDS: PIPERACILLIN/TAZOBACTAM 3,375 MG in SODIUM CHLORIDE 0.9% 100 ML IV SCH ×3 (04:19→20:08)
[2017-01-31] MEDS: methylPREDNISolone SOD SUC 40 MG/1 ML VIAL IV SCH ×3 (04:20→21:22)
[2017-01-31 05:57] LABS: Basophils % 0.2 % (0.0-0.8); Eosinophils # 0.1 10*3/uL (0.0-0.87); Eosinophils % 1.1 % (0.00-10.9); Hematocrit 44.3 VOL% (42.0-52.0); Hemoglobin 14.8 GM/DL (14.0-18.0); Immature Granulocytes % 1.3 %; Immature Granulocytes Absolute 0.13 #; Lymphocytes # 1.1 10*3/uL (1.4-4.0); Lymphocytes % 11.2 % (21.2-54.2); Mean Corpuscular HGB Conc 33.4 GM/DL (32-36); Mean Corpuscular Hemoglobin 30 PG (27-34); Mean Platelet Volume 9.8 FL (9.6-12.0); Monocytes # 0.8 10*3/uL (0.11-0.8); Monocytes % 7.8 % (1.7-12.7); Neutrophils # 7.6 10*3/uL (1.4-7.4); Neutrophils % 78.4 % (38.7-73.9); Platelet Count 115 T/CUMM (130-400); Red Blood Count 4.92 MC/CUMM (3.8-5.5); White Blood Count 9.7 T/CUMM (4-12)
[2017-01-31 06:39] LABS: Calcium 8.4 MG/DL (8.5-10.1); Magnesium 2.8 MG/DL (1.8-2.4); Osmolality,Calculated 283.3 MOS/KG (273-304); Potassium 4.2 MMOL/L (3.5-5.1)
--- NOTE | 2017-01-31 07:49 | XRay Report ---
Exam: XR chest 1V portable Date: 01/31/2017 4:00 AM Indication: Follow-up ventilator respiratory failure Comparison: 01/30/2017 Technical: AP Findings: Low volume effusions are present. Endotracheal tube is at the level aortic knob. Nasogastric tube is in the stomach. External cardiac leads are present. A right-sided PICC line is also present. External cardiac leads are present. No pneumothorax. Mild atelectatic change in both bases. Mild cardiomegaly. Impression: 1. Persistent low volume effusions and underlying basilar atelectatic change with stable position of life-support tubes 2. Mild cardiac enlargement persist PROCEDURE INTERPRETED AT [facility] DEPARTMENT OF RADIOLOGY Final Report Signed by: Dr. Codey Strauss
[2017-01-31] MEDS: MIDAZOLAM 100 MG in SODIUM CHLORIDE 0.9% 80 ML IV SCH ×2 (08:00→19:20)
--- NOTE | 2017-01-31 08:59 | Event Note ---
In hospital diagnostic and therapeutic fiberoptic bronchoscopy. Bilateral bronchoalveolar lavages. Specimen sent for cytology, Gram stain, culture and sensitivity, fungal stains and culture, AFB stains and culture This is a 61-year-old white male with severe COPD and sputum retention. His cough is ineffective he is on mechanical ventilation. So far he is been on weaning will. For these reasons she is evaluated with fiberoptic bronchoscopy. Endotracheal tube is in good position. Secretions in the distal endotracheal tube was so thick and tenacious the scope had to be withdrawn 7 or 8 times in order to clean it. Laine was sharp. Both mainstem bronchi were filled with similar secretions. Left mainstem bronchus was full of thick tenacious secretions that extended into the left upper lung. The orifice to the lingula was partially stenosed with endobronchial edema. The left lower lung segments were full of thick tenacious secretions the bifurcations were thickened secondary to chronic disease and chronic infection. There were areas of erosive friable bronchitis. Left lower lung was also lavaged. The right mainstem bronchus was full of thick tenacious secretions. These extended into the right upper lung, the right middle lung and the right lower lung. All of these segments were evaluated with bronchoalveolar lavage. The bronchi were markedly collapsible as they were on the left. This is compatible with underlying COPD. The bifurcations were thickened and the endobronchial mucosa was thickened secondary to chronic infection. No definite endobronchial lesions are seen on the right or the left. The patient tolerated procedure well there were no complications. Impression. 1. Mechanical ventilation 2. Retained secretions 3. Ineffective cough 4. Severe COPD with collapsible large and small airways 5. Bilateral erosive friable bronchitis. Plan. 1. Check bronchoscopy specimens 2. Follow-up chest x-ray 3. This patient will need a follow-up bronchoscopy.
[2017-01-31] MEDS: CARVEDILOL 3.125 MG TABLET PO SCH ×2 (09:20→21:22)
[2017-01-31] MEDS: MONTELUKAST 10 MG TABLET PO SCH (09:20)
[2017-01-31] MEDS: PHENYTOIN 100 MG/4 ML UDCUP PO SCH ×3 (09:20→21:22)
[2017-01-31] MEDS: CLORAZEPATE 7.5 MG TABLET PO SCH ×3 (09:20→21:22)
[2017-01-31] MEDS: PANTOPRAZOLE 40 MG VIAL IV SCH (09:20)
--- NOTE | 2017-01-31 11:16 | Hospitalist Progress Note ---
Assessment and Plan (1) COPD exacerbation Status: Acute Assessment and plan: The patient continues therapy for lung infection with IV antibiotic. I coordinated care with Dr. Souza. The patient is improving and the therapeutic lavage she received today should help oxygen delivery. The patient will continue weaning as tolerated and we anticipate extubation later this week. Current Visit: No (2) Respiratory failure, [id number] Status: Acute Current Visit: No Qualifiers: Respiratory failure complication: hypoxia and hypercapnia (3) Right middle lobe pneumonia Status: Acute Current Visit: No Qualifiers: Pneumonia type: due to unspecified organism Qualified Code(s): J18.1 - Lobar pneumonia, unspecified organism Hospitalist: Subjective Interval history: Mr. Vides is a 61-year-old patient with moderate to severe COPD. The patient developed pneumonia and lung infection. He had acute on chronic respiratory failure and required intubation. The patient is being treated with Zosyn IV antibiotic. I coordinate care with Dr. Souza today. I attended the patient's bronchoscopy where he was given therapeutic lavage of multiple mucous plugs in the medium sized airways. Cultures were taken.\ The patient is receiving and tolerating tube feedings. Exam - Constitutional Vitals: Period Temp Pulse Resp BP Sys/Centeno Pulse Ox Last 24 Hr 97.1 F-98.0 F 57-96 8-19 91-147/59-96 94-100 Exam: Constitutional System: Mild distress. No tremulousness. The patient is orally intubated and mechanically ventilated Head: Normocephalic, atraumatic. Ears, Nose and Throat System: No evidence of Otitis or Mastoiditis. No epistaxis or discharge Eyes System: Pupils equal, round, and reactive. Extraocular muscles intact. Neck: Supple, without adenopathy, trace jugular venous distention. No thyromegaly, neck mass, or prior surgery apparent. Respiratory System: Chest rhonchi diffusely to auscultation. Cardiovascular System: Heart with regular rate and rhythm. No murmur. GI System: Abdomen soft, nontender. Normo active bowel sounds present. Musculoskeletal System: limbs with trace pedal edema. Full distal pulses. Results - Labs CBC & BMP: 01/31/17 05:32 01/31/17 05:32 Lab Results: I have reviewed the past 24 hour labs
--- NOTE | 2017-01-31 12:31 | Pulmonology Progress Note ---
Pulmonary - PN: Subj Interval history: This is a 61-year-old white male whom I saw in pulmonary consultation on 2016. I have seen this patient in the past. He has a long history of noncompliance with medications. He also in the past has been very difficult to wean from mechanical ventilation and usually he requires a PCO2 of approximately 60 My impressions were. 1. Acute respiratory failure for oxygen and carbon dioxide requiring intubation mechanical ventilation 2. Probable right lower lung pneumonia 3. Obstructive lung disease with bronchospastic disease 4. Heart disease with past history of congestive heart failure 5. Tobacco abuse 6. Noncompliant patient 7. Seizure disorder 8. History of high blood pressure 9. Pulmonary hypertension. Most likely secondary to hypoxemia, COPD and obstructive sleep apnea. 10. See past history 11. Past history of tracheotomy 01/26/2017. Today's x-ray shows hyperinflation is possible faint infiltrate in the lateral basal segment of the left lower lung. ABGs on mechanical ventilation FiO2 of 40% shows a pH 7.507 PCO2 36 PO2 of 128 and a bicarb of 29.3. Ventilator changes have been made to allow the patient's CO2 to increase. He is on a weaning protocol. Electrolytes are normal. Creatinine is 0.8 with a BUN of 18 white count is 9680 segs H&H 14.2/40.9. Patient is on IV Aminophyllin. Aminophyllin level is pending. He is on infusion at 22 mg/h. He was not loaded with theophylline and his admit level was less than 2.0 consistent with noncompliance with his medicines. 01/28/2017. Patient's chest x-ray is stable. Heart size is top normal. No infiltrates. No heart failure. No pneumothorax. Endotracheal tube is in good position. ABGs are noted. Have cut back on the patient's assist control rate. He will require a PCO2 of about 60 in order to extubate him. Patient did fairly well for a period of time on CPAP yesterday. Eventually he became very anxious and had to be put back on the ventilator. His girlfriend has told staff that the patient does not take any of his medicines. She says he is confused most of the time at home. There are no positive cultures. Electrolytes are normal and creatinine is 0.7. CBC is stable. White count is 10,700 with 83 segs 9 lymphs. Theophylline level 6.5. We can leave it at this level is a peripheral wheezes seem to have resolved 01/29/2017.And to prevent.Versed appears to work better for sedation HEENT patient has been changed to Versed. Chest x-ray. Mild to moderate bibasilar atelectasis. No heart failure. Endotracheal tube is in good position. No pneumothorax. ABGs on FiO2 35% assist control of 8 shows a pH of 7.41, PCO2 53.9, PO2 88.5 and a bicarb of 33.4. I will decrease the patient's assist control to 6. We will continue his weaning protocol per yesterday he did 4 hours of CPAP. Will start patient on Diamox 250 mg IV push every 12 hours. 01/30/2017. Chest x-ray shows enlarged pulmonary arteries. There is no hilar adenopathy. There is calcification aortic knob. Endotracheal tube is in good position there is bibasilar atelectasis. There is no heart failure. No pneumothorax. There are no positive cultures. ABGs on mechanical ventilation with assist control of 6 and FiO2 35% shows a pH of 7.325, PCO2 is 58.4, PO2 is 97.9 and bicarb is 26.4. Patient did not do very good with his CPAP trials yesterday and I am not sure why. In the past she has been very difficult to wean him when taken off several times he is required reintubation. This is been discussed with Dr. Hanna. Glucoses are normal. We will continue to weaning protocol and when things look opportune will try to extubate the patient. This will not be by the cookbook 01/31/2017. Patient was evaluated with fiberoptic bronchoscopy this morning. His sputum was so thick the scope had to be withdrawn 6 or 7 times and clean. See report. He will require repeat bronchoscopy tomorrow morning. This will probably help his breathing a good bit. He is on the weaning protocol and we will continue to push as hard as possible. This patient with will require a PCO2 of about 60 to extubating him and will probably have to do a power extubation. There are no positive cultures. ABGs today on mechanical ventilation FiO2 is 35% shows a pH 7.32, PCO2 53.7, PO2 of 100 and a bicarb of 24.4. Electrolytes are normal. Creatinine is 0.7. BUNs 20. CBC is stable. Theophylline level is 5.8. Physical exam. Psychiatric arousable. Neurologic. Cranial nerves are been intact and patient moves all 4 extremities Face. Symmetrical. No edema of the lips and tongue Neck. Symmetrical no meningismus Chest. Hyperinflated mild coarse large airway congestion Heart. No gallop Abdomen. Nondistended. Only rare bowel sounds Lower extremities. No edema nothing to suggest deep venous thrombophlebitis Lymphatics. No submandibular cervical supraclavicular or epitrochlear adenopathy The remainder the physical exam is negative. Plan. 01/25/2017 1. Mechanical ventilation. Ventilator weaning protocol. Ventilator physical therapy protocol. 2. Sputum for Gram stain culture and sensitivity 3. Legionella titer 4. Cold agglutinins. 5. Daily chest x-ray and ABGs 6. See orders 7. Based on this patient's past hospitalization he will probably require a PCO2 of about 50-60 in order to weaning from the ventilator. 8. Note history of seizure disorder. Agree with restarting Dilantin 9. Theophylline level 01/26/2017. 1. Weaning protocol 2. Keep PCO2 approximately 60 3. Daily chest x-rays and ABGs. 4. Have ordered daily theophylline 01/28/2017. 1. Decrease assist control today. That is PCO2 rise to 60 2. Continue weaning protocol 3. Daily chest x-ray ABGs and lab 01/29/2017. 1. Assist-control decreased to 6. 2. Start Diamox 250 every 12 hours 3. See today's note above. 01/30/2017. 1. Continue weaning protocol 2. See my note above 01/31/2017. 1. See today's note above 2. Repeat fiberoptic bronchoscopy tomorrow 3. Weaning protocol 4. Physical therapy protocol 5. Daily chest x-ray ABGs and lab Exam (Progress Note) - Constitutional Vitals: Period Temp Pulse Resp BP Sys/Centeno Pulse Ox Last 24 Hr 97.1 F-98.0 F 56-96 8-19 91-147/59-96 94-100 Results - Labs CBC & BMP: 01/31/17 05:32 01/31/17 05:32
[2017-02-01] MEDS: INSULIN REGULAR 100 UNIT/ML SUBCUT SCH ×4 (00:13→18:23)
[2017-02-01] MEDS: PROPOFOL 1,000 MG/100 ML BOTTLE IV SCH ×8 (00:15→23:38)
[2017-02-01] MEDS: ALBUTEROL/IPRATROPIUM 3 ML NEB RESP TX SCH ×4 (01:48→19:08)
[2017-02-01 03:34] LABS: ABG Base Excess -0.6 MMOL/L (-2.5-2.5); ABG HCO3 23.9 MMOL/L (20-26); ABG Oxygen Saturation 97.3 % (95-100); ABG PH 7.308 (7.35-7.45); ABG TCO2 23.3 MMOL/L (23-27); Allen Test Positive; Pt O2 Delivery Device Ventilator
[2017-02-01] MEDS: ENOXAPARIN 40 MG/0.4 ML SYRINGE SUBCUT SCH (04:26)
[2017-02-01] MEDS: methylPREDNISolone SOD SUC 40 MG/1 ML VIAL IV SCH ×3 (04:27→20:19)
[2017-02-01] MEDS: PIPERACILLIN/TAZOBACTAM 3,375 MG in SODIUM CHLORIDE 0.9% 100 ML IV SCH ×3 (04:27→20:21)
[2017-02-01 05:22] LABS: Basophils % 0.3 % (0.0-0.8); Eosinophils # 0.1 10*3/uL (0.0-0.87); Eosinophils % 1.3 % (0.00-10.9); Hemoglobin 15.9 GM/DL (14.0-18.0); Immature Granulocytes % 1.9 %; Lymphocytes # 1.3 10*3/uL (1.4-4.0); Lymphocytes % 12.6 % (21.2-54.2); Mean Corpuscular HGB Conc 34.6 GM/DL (32-36); Mean Corpuscular Hemoglobin 30 PG (27-34); Mean Corpuscular Volume 87.8 FL (87-102); Monocytes # 0.9 10*3/uL (0.11-0.8); Monocytes % 8.8 % (1.7-12.7); Neutrophils # 7.9 10*3/uL (1.4-7.4); Neutrophils % 75.1 % (38.7-73.9); Platelet Count 140 T/CUMM (130-400); Red Blood Count 5.24 MC/CUMM (3.8-5.5); White Blood Count 10.6 T/CUMM (4-12)
[2017-02-01 05:41] LABS: PT Patient Result 10.5 SECS; Partial Thromboplastin Time 25.4 SECS (0-40)
[2017-02-01 06:09] LABS: Calcium 8.4 MG/DL (8.5-10.1); Magnesium 2.8 MG/DL (1.8-2.4); Osmolality,Calculated 281.5 MOS/KG (273-304); Potassium 4.1 MMOL/L (3.5-5.1)
--- NOTE | 2017-02-01 06:56 | XRay Report ---
Exam: XR chest 1V portable Date: 02/01/2017 4:00 AM Indication: Follow-up ventilator respiratory failure Comparison: 01/31/2017 Technical: AP Findings: Endotracheal tube nasogastric tube are unchanged. External cardiac leads are present. Low volume effusions are present with underlying bibasilar atelectatic change. The heart is normal in size. No pneumothorax. Mediastinum is intact. A right-sided PICC line is present.. The bony structures reveal mild dextroscoliotic curve Impression: 1. Stable appearance of life support tubing 2. No significant interval change with tiny low volume effusions and mild interstitial densities or atelectatic change in both bases PROCEDURE INTERPRETED AT [facility] DEPARTMENT OF RADIOLOGY Final Report Signed by: Dr. Codey Strauss
[2017-02-01] MEDS: MIDAZOLAM 100 MG in SODIUM CHLORIDE 0.9% 80 ML IV SCH ×2 (08:25→21:00)
--- NOTE | 2017-02-01 09:52 | Event Note ---
In-hospital diagnostic and therapeutic fiberoptic bronchoscopy. Bilateral bronchoalveolar lavages. Specimens were sent for Gram stain, bacterial culture , AFB stains and culture, fungal stains and culture The 61-year-old white male on mechanical ventilation. He has ineffective cough. He has a severe problem with retained secretions and he has underlying COPD. He was evaluated to treat these problems and also to obtain cultures. The endotracheal tube is in good position. The distal trachea was normal. The warren was sharp. The right mainstem bronchus was full of thick tenacious secretions that extended into the right upper lung and right middle lung and all of the subsegments of the right lower lung. These areas were lavaged until clear. Patient has underlying collapsible large and small airways compatible with severe COPD. He had erosive friable bronchitis in the right lower lung. Left mainstem bronchus was full of thick tenacious secretions. These extended into the left upper lung and the left lower lung. He is more evaluated with bronco alveolar lavage into the airways were clear. There is erosive friable bronchitis in the right upper lung and right lower lung. The large and small airways are markedly collapsible compatible with severe COPD. The collection apparatus showed multiple bronchial plugs and bronchial casts. The patient tolerated procedure well there were no complications Impression. 1. Mechanical ventilation 2. Ineffective cough 3. Retained secretions 4. Severe COPD with markedly collapsible large and small airways. 5. Erosive friable bronchitis in the left upper lung, left lower lung and right lower lung. Plan. 1. Check bronchoscopy specimens 2. Follow-up chest x-ray 3. Patient will need a repeat bronchoscopy 4. Weaning protocol
[2017-02-01] MEDS: CLORAZEPATE 7.5 MG TABLET PO SCH ×3 (10:54→20:23)
[2017-02-01] MEDS: MONTELUKAST 10 MG TABLET PO SCH (10:54)
[2017-02-01] MEDS: CARVEDILOL 3.125 MG TABLET PO SCH ×2 (10:54→20:23)
--- NOTE | 2017-02-01 10:54 | Pulmonology Progress Note ---
Pulmonary - PN: Subj Interval history: This is a 61-year-old white male whom I saw in pulmonary consultation on 2016. I have seen this patient in the past. He has a long history of noncompliance with medications. He also in the past has been very difficult to wean from mechanical ventilation and usually he requires a PCO2 of approximately 60 My impressions were. 1. Acute respiratory failure for oxygen and carbon dioxide requiring intubation mechanical ventilation 2. Probable right lower lung pneumonia 3. Obstructive lung disease with bronchospastic disease 4. Heart disease with past history of congestive heart failure 5. Tobacco abuse 6. Noncompliant patient 7. Seizure disorder 8. History of high blood pressure 9. Pulmonary hypertension. Most likely secondary to hypoxemia, COPD and obstructive sleep apnea. 10. See past history 11. Past history of tracheotomy 01/26/2017. Today's x-ray shows hyperinflation is possible faint infiltrate in the lateral basal segment of the left lower lung. ABGs on mechanical ventilation FiO2 of 40% shows a pH 7.507 PCO2 36 PO2 of 128 and a bicarb of 29.3. Ventilator changes have been made to allow the patient's CO2 to increase. He is on a weaning protocol. Electrolytes are normal. Creatinine is 0.8 with a BUN of 18 white count is 9680 segs H&H 14.2/40.9. Patient is on IV Aminophyllin. Aminophyllin level is pending. He is on infusion at 22 mg/h. He was not loaded with theophylline and his admit level was less than 2.0 consistent with noncompliance with his medicines. 01/28/2017. Patient's chest x-ray is stable. Heart size is top normal. No infiltrates. No heart failure. No pneumothorax. Endotracheal tube is in good position. ABGs are noted. Have cut back on the patient's assist control rate. He will require a PCO2 of about 60 in order to extubate him. Patient did fairly well for a period of time on CPAP yesterday. Eventually he became very anxious and had to be put back on the ventilator. His girlfriend has told staff that the patient does not take any of his medicines. She says he is confused most of the time at home. There are no positive cultures. Electrolytes are normal and creatinine is 0.7. CBC is stable. White count is 10,700 with 83 segs 9 lymphs. Theophylline level 6.5. We can leave it at this level is a peripheral wheezes seem to have resolved 01/29/2017.And to prevent.Versed appears to work better for sedation HEENT patient has been changed to Versed. Chest x-ray. Mild to moderate bibasilar atelectasis. No heart failure. Endotracheal tube is in good position. No pneumothorax. ABGs on FiO2 35% assist control of 8 shows a pH of 7.41, PCO2 53.9, PO2 88.5 and a bicarb of 33.4. I will decrease the patient's assist control to 6. We will continue his weaning protocol per yesterday he did 4 hours of CPAP. Will start patient on Diamox 250 mg IV push every 12 hours. 01/30/2017. Chest x-ray shows enlarged pulmonary arteries. There is no hilar adenopathy. There is calcification aortic knob. Endotracheal tube is in good position there is bibasilar atelectasis. There is no heart failure. No pneumothorax. There are no positive cultures. ABGs on mechanical ventilation with assist control of 6 and FiO2 35% shows a pH of 7.325, PCO2 is 58.4, PO2 is 97.9 and bicarb is 26.4. Patient did not do very good with his CPAP trials yesterday and I am not sure why. In the past she has been very difficult to wean him when taken off several times he is required reintubation. This is been discussed with Dr. Hanna. Glucoses are normal. We will continue to weaning protocol and when things look opportune will try to extubate the patient. This will not be by the cookbook 01/31/2017. Patient was evaluated with fiberoptic bronchoscopy this morning. His sputum was so thick the scope had to be withdrawn 6 or 7 times and clean. See report. He will require repeat bronchoscopy tomorrow morning. This will probably help his breathing a good bit. He is on the weaning protocol and we will continue to push as hard as possible. This patient with will require a PCO2 of about 60 to extubating him and will probably have to do a power extubation. There are no positive cultures. ABGs today on mechanical ventilation FiO2 is 35% shows a pH 7.32, PCO2 53.7, PO2 of 100 and a bicarb of 24.4. Electrolytes are normal. Creatinine is 0.7. BUNs 20. CBC is stable. Theophylline level is 5.8. 02/01/2017. Today's chest x-ray shows cardiomegaly. There is atelectasis over the left lower lung where there are also some air bronchograms and there is atelectasis over the right lower lung. This was evaluated with fiberoptic bronchoscopy. See report. Patient had retention of a great deal of thick tenacious secretions but much improved compared to yesterday. Bronchoalveolar lavage cultures are growing a gram red negative rods which is unidentified. No AFB or fungus are seen. Patient did 12 hours of CPAP yesterday and will increase this today. ABGs on FiO2 of 35% shows a pH of 7.308, PCO2 of 54 and PO2 of 100 with a bicarb of 24. CBC is stable. Electrolytes normal. Creatinine is 0.7 with a BUN of 26. Theophylline level is 6.7. The patient's own PIP reselling. Physical exam. Psychiatric arousable. Neurologic. Cranial nerves are been intact and patient moves all 4 extremities Face. Symmetrical. No edema of the lips and tongue Neck. Symmetrical no meningismus Chest. Hyperinflated mild coarse large airway congestion Heart. No gallop Abdomen. Nondistended. Only rare bowel sounds Lower extremities. No edema nothing to suggest deep venous thrombophlebitis Lymphatics. No submandibular cervical supraclavicular or epitrochlear adenopathy The remainder the physical exam is negative. Plan. 01/25/2017 1. Mechanical ventilation. Ventilator weaning protocol. Ventilator physical therapy protocol. 2. Sputum for Gram stain culture and sensitivity 3. Legionella titer 4. Cold agglutinins. 5. Daily chest x-ray and ABGs 6. See orders 7. Based on this patient's past hospitalization he will probably require a PCO2 of about 50-60 in order to weaning from the ventilator. 8. Note history of seizure disorder. Agree with restarting Dilantin 9. Theophylline level 01/26/2017. 1. Weaning protocol 2. Keep PCO2 approximately 60 3. Daily chest x-rays and ABGs. 4. Have ordered daily theophylline 01/28/2017. 1. Decrease assist control today. That is PCO2 rise to 60 2. Continue weaning protocol 3. Daily chest x-ray ABGs and lab 01/29/2017. 1. Assist-control decreased to 6. 2. Start Diamox 250 every 12 hours 3. See today's note above. 01/30/2017. 1. Continue weaning protocol 2. See my note above 01/31/2017. 1. See today's note above 2. Repeat fiberoptic bronchoscopy tomorrow 3. Weaning protocol 4. Physical therapy protocol 5. Daily chest x-ray ABGs and lab 02/01/2017. 1. See my note above. 2. Repeat fiberoptic bronchoscopy tomorrow 3. Advance weaning protocol and physical therapy protocol. 4. Sputum showed gram-negative calixto. No identity and no sensitivities Exam (Progress Note) - Constitutional Vitals: Period Temp Pulse Resp BP Sys/Centeno Pulse Ox Last 24 Hr 97 F-97.7 F 55-81 8-23 91-169/58-108 96-100 Results - Labs CBC & BMP: 02/01/17 04:44 02/01/17 04:43
[2017-02-01] MEDS: PANTOPRAZOLE 40 MG VIAL IV SCH (10:55)
[2017-02-01] MEDS: PHENYTOIN 100 MG/4 ML UDCUP PO SCH ×3 (10:55→20:25)
--- NOTE | 2017-02-01 12:15 | Pathology Report from [facility] ---
[facility] [place] : [id number] PATIENT NAME : Mo Vides ORDERING DR : MONICA ROMO MD CLINICAL HX: COPD, Respiratory failure POST-OP DX: Same SPECIMEN INFO: Washing,Bronchial,MARIA TERESA - 15 mls greyish white, cloudy CLASS: I CLASS COMMENTS: Inflammation, squamous metaplasia, few bronchial cells.CELL BLOCK: Same CLASS LEGEND: CLASS 0 Material inadequate for diagnosis because of (see comment) CLASS I Absence of atypical or abnormal cells CLASS II Atypical Cytology but no evidence of malignancy CLASS III Cytology suggestive of but not conclusive for malignancy CLASS IV Cytology strongly suggestive of malignancy CLASS V Cytology conclusive for malignancy COLLECTED DATE: 01/31/2017 [facility] REPORT DATE: 02/01/2017 ELECTRONICALLY SIGNED BY: Onesimo Culp III, M.D. 02/01/2017 - 8:29:40 ANALI
--- NOTE | 2017-02-01 15:12 | Hospitalist Progress Note ---
Assessment and Plan (1) COPD exacerbation Status: Acute Assessment and plan: The patient continues therapy for lung infection with IV antibiotic. I coordinated care with Dr. Souza. The patient is improving and the therapeutic lavage he received today should help oxygen delivery. The patient will continue weaning as tolerated and we anticipate extubation later this week. Current Visit: No (2) Respiratory failure, [id number] Status: Acute Current Visit: No Qualifiers: Respiratory failure complication: hypoxia and hypercapnia (3) Right middle lobe pneumonia Status: Acute Current Visit: No Qualifiers: Pneumonia type: due to unspecified organism Qualified Code(s): J18.1 - Lobar pneumonia, unspecified organism Hospitalist: Subjective Interval history: Mr. Peewee turcios continues on treatment for COPD with exacerbation and respiratory failure. He is making slow steady progress towards extubation. Exam - Constitutional Vitals: Period Temp Pulse Resp BP Sys/Centeno Pulse Ox Last 24 Hr 97.6 F-97.7 F 55-81 8-23 94-169/59-108 96-100 Exam: Constitutional System: Mild distress. No tremulousness. The patient is orally intubated and mechanically ventilated Head: Normocephalic, atraumatic. Ears, Nose and Throat System: No evidence of Otitis or Mastoiditis. No epistaxis or discharge Eyes System: Pupils equal, round, and reactive. Extraocular muscles intact. Neck: Supple, without adenopathy, trace jugular venous distention. No thyromegaly, neck mass, or prior surgery apparent. Respiratory System: Chest rhonchi diffusely to auscultation. Cardiovascular System: Heart with regular rate and rhythm. No murmur. GI System: Abdomen soft, nontender. Normo active bowel sounds present. Musculoskeletal System: limbs with trace pedal edema. Full distal pulses. Results - Labs CBC & BMP: 02/01/17 04:44 02/01/17 04:43 Lab Results: I have reviewed the past 24 hour labs
[2017-02-01] MEDS: AMINOPHYLLINE 500 MG in SODIUM CHLORIDE 0.9% 480 ML IV SCH (17:04)
[2017-02-02] MEDS: INSULIN REGULAR 100 UNIT/ML SUBCUT SCH ×5 (00:23→23:49)
[2017-02-02] MEDS: ALBUTEROL/IPRATROPIUM 3 ML NEB RESP TX SCH ×4 (00:51→19:10)
[2017-02-02] MEDS: PROPOFOL 1,000 MG/100 ML BOTTLE IV SCH ×7 (02:42→23:50)
[2017-02-02 03:37] LABS: ABG Base Excess 0.7 MMOL/L (-2.5-2.5); ABG Oxygen Saturation 97.6 % (95-100); ABG PCO2 55.6 MM HG (35-48); ABG PO2 103.2 MM HG (80-95); ABG TCO2 29.7 MMOL/L (23-27); Allen Test Positive; Pt O2 Delivery Device Ventilator
[2017-02-02] MEDS: ENOXAPARIN 40 MG/0.4 ML SYRINGE SUBCUT SCH (04:12)
[2017-02-02] MEDS: PIPERACILLIN/TAZOBACTAM 3,375 MG in SODIUM CHLORIDE 0.9% 100 ML IV SCH ×3 (04:13→21:35)
[2017-02-02] MEDS: methylPREDNISolone SOD SUC 40 MG/1 ML VIAL IV SCH ×3 (04:20→22:13)
[2017-02-02 04:50] LABS: Basophils % 0.3 % (0.0-0.8); Eosinophils # 0.1 10*3/uL (0.0-0.87); Eosinophils % 1.2 % (0.00-10.9); Hematocrit 42.4 VOL% (42.0-52.0); Hemoglobin 14.9 GM/DL (14.0-18.0); Immature Granulocytes % 2.3 %; Immature Granulocytes Absolute 0.23 #; Lymphocytes # 1.2 10*3/uL (1.4-4.0); Lymphocytes % 12.6 % (21.2-54.2); Mean Corpuscular HGB Conc 35.1 GM/DL (32-36); Mean Corpuscular Hemoglobin 31 PG (27-34); Mean Corpuscular Volume 88.1 FL (87-102); Monocytes # 0.8 10*3/uL (0.11-0.8); Neutrophils # 7.4 10*3/uL (1.4-7.4); Neutrophils % 75.6 % (38.7-73.9); Platelet Count 136 T/CUMM (130-400); Red Blood Count 4.81 MC/CUMM (3.8-5.5); Red Cell Distribution Width 12.7 % (9.3-17.3); White Blood Count 9.8 T/CUMM (4-12)
[2017-02-02 05:02] LABS: Calcium 7.3 MG/DL (8.5-10.1); Magnesium 2.4 MG/DL (1.8-2.4); Osmolality,Calculated 285.5 MOS/KG (273-304); Potassium 3.5 MMOL/L (3.5-5.1)
[2017-02-02 05:13] LABS: PT Patient Result 10.3 SECS; Partial Thromboplastin Time 25.2 SECS (0-40)
[2017-02-02 05:16] LABS: Phosphorous 2.7 MG/DL (2.5-4.9)
[2017-02-02] MEDS: AMINOPHYLLINE 500 MG in SODIUM CHLORIDE 0.9% 480 ML IV SCH (07:45)
--- NOTE | 2017-02-02 07:53 | XRay Report ---
L portable chest February 02, 2017 at 0321 hours Indication: Shortness of breath Comparison images dated February 01, 2017 at 0304 hours Findings: Cardiac mediastinal contours are stable. Bibasilar atelectasis small effusions, relatively unchanged. Lines remain in satisfactory position. Impression: No interval change in appearance the chest PROCEDURE INTERPRETED AT [facility] DEPARTMENT OF RADIOLOGY Final Report Signed by: Manuel Mckeon
[2017-02-02] MEDS: PHENYTOIN 100 MG/4 ML UDCUP PO SCH ×3 (09:22→22:13)
[2017-02-02] MEDS: PANTOPRAZOLE 40 MG VIAL IV SCH (09:22)
[2017-02-02] MEDS: CLORAZEPATE 7.5 MG TABLET PO SCH ×3 (09:23→22:14)
[2017-02-02] MEDS: CARVEDILOL 3.125 MG TABLET PO SCH ×2 (09:23→22:03)
[2017-02-02] MEDS: MONTELUKAST 10 MG TABLET PO SCH (09:23)
--- NOTE | 2017-02-02 09:23 | Event Note ---
In hospital diagnostic and therapeutic fiberoptic bronchoscopy. Bilateral bronchoalveolar lavages were sent for cytology, Gram stain, bacterial culture, fungal stains and culture, AFB stains and culture. This is a 61-year-old white male with severe COPD, ineffective cough, retained secretions and mechanical ventilation. For these reasons he is evaluated with fiberoptic bronchoscopy. The endotracheal tube is in good position. The warren was sharp. The right mainstem bronchus was full of thick tenacious secretions are stopped up to suction channel required removing and cleaning. These extended into the right upper lung the right middle lung and the right lower lung. Each lobe was lavaged and suctioned until clear. The underlying bronchi showed collapsibility , compatible with COPD The left mainstem bronchus the left upper lung especially the lingula and the left lower lung was full of thick tenacious secretions which were removed with bronchoalveolar lavage. The division between the lingula and the apical posterior segment in the left lung was somewhat thickened but probably normal this area was lavaged and no specimens were sent for cytologies. The large and small airways were markedly collapsible secondary to underlying COPD. The patient tolerated procedure well his secretions had improved somewhat. He had less erythema and edema endobronchially in his lower lungs. Impression. 1. Mechanical ventilation 2. Ineffective cough 3. Retained secretions 4. Severe COPD with collapsible large and small airway 5. Thickened segmental bifurcation left upper lung Plan. 1. Follow-up chest x-ray 2. Check bronchoscopy [place]
[2017-02-02] MEDS: MIDAZOLAM 100 MG in SODIUM CHLORIDE 0.9% 80 ML IV SCH ×2 (09:46→22:22)
--- NOTE | 2017-02-02 11:01 | Pulmonology Progress Note ---
Pulmonary - PN: Subj Interval history: This is a 61-year-old white male whom I saw in pulmonary consultation on 2016. I have seen this patient in the past. He has a long history of noncompliance with medications. He also in the past has been very difficult to wean from mechanical ventilation and usually he requires a PCO2 of approximately 60 My impressions were. 1. Acute respiratory failure for oxygen and carbon dioxide requiring intubation mechanical ventilation 2. Probable right lower lung pneumonia 3. Obstructive lung disease with bronchospastic disease 4. Heart disease with past history of congestive heart failure 5. Tobacco abuse 6. Noncompliant patient 7. Seizure disorder 8. History of high blood pressure 9. Pulmonary hypertension. Most likely secondary to hypoxemia, COPD and obstructive sleep apnea. 10. See past history 11. Past history of tracheotomy 01/26/2017. Today's x-ray shows hyperinflation is possible faint infiltrate in the lateral basal segment of the left lower lung. ABGs on mechanical ventilation FiO2 of 40% shows a pH 7.507 PCO2 36 PO2 of 128 and a bicarb of 29.3. Ventilator changes have been made to allow the patient's CO2 to increase. He is on a weaning protocol. Electrolytes are normal. Creatinine is 0.8 with a BUN of 18 white count is 9680 segs H&H 14.2/40.9. Patient is on IV Aminophyllin. Aminophyllin level is pending. He is on infusion at 22 mg/h. He was not loaded with theophylline and his admit level was less than 2.0 consistent with noncompliance with his medicines. 01/28/2017. Patient's chest x-ray is stable. Heart size is top normal. No infiltrates. No heart failure. No pneumothorax. Endotracheal tube is in good position. ABGs are noted. Have cut back on the patient's assist control rate. He will require a PCO2 of about 60 in order to extubate him. Patient did fairly well for a period of time on CPAP yesterday. Eventually he became very anxious and had to be put back on the ventilator. His girlfriend has told staff that the patient does not take any of his medicines. She says he is confused most of the time at home. There are no positive cultures. Electrolytes are normal and creatinine is 0.7. CBC is stable. White count is 10,700 with 83 segs 9 lymphs. Theophylline level 6.5. We can leave it at this level is a peripheral wheezes seem to have resolved 01/29/2017.And to prevent.Versed appears to work better for sedation HEENT patient has been changed to Versed. Chest x-ray. Mild to moderate bibasilar atelectasis. No heart failure. Endotracheal tube is in good position. No pneumothorax. ABGs on FiO2 35% assist control of 8 shows a pH of 7.41, PCO2 53.9, PO2 88.5 and a bicarb of 33.4. I will decrease the patient's assist control to 6. We will continue his weaning protocol per yesterday he did 4 hours of CPAP. Will start patient on Diamox 250 mg IV push every 12 hours. 01/30/2017. Chest x-ray shows enlarged pulmonary arteries. There is no hilar adenopathy. There is calcification aortic knob. Endotracheal tube is in good position there is bibasilar atelectasis. There is no heart failure. No pneumothorax. There are no positive cultures. ABGs on mechanical ventilation with assist control of 6 and FiO2 35% shows a pH of 7.325, PCO2 is 58.4, PO2 is 97.9 and bicarb is 26.4. Patient did not do very good with his CPAP trials yesterday and I am not sure why. In the past she has been very difficult to wean him when taken off several times he is required reintubation. This is been discussed with Dr. Hanna. Glucoses are normal. We will continue to weaning protocol and when things look opportune will try to extubate the patient. This will not be by the cookbook 01/31/2017. Patient was evaluated with fiberoptic bronchoscopy this morning. His sputum was so thick the scope had to be withdrawn 6 or 7 times and clean. See report. He will require repeat bronchoscopy tomorrow morning. This will probably help his breathing a good bit. He is on the weaning protocol and we will continue to push as hard as possible. This patient with will require a PCO2 of about 60 to extubating him and will probably have to do a power extubation. There are no positive cultures. ABGs today on mechanical ventilation FiO2 is 35% shows a pH 7.32, PCO2 53.7, PO2 of 100 and a bicarb of 24.4. Electrolytes are normal. Creatinine is 0.7. BUNs 20. CBC is stable. Theophylline level is 5.8. 02/01/2017. Today's chest x-ray shows cardiomegaly. There is atelectasis over the left lower lung where there are also some air bronchograms and there is atelectasis over the right lower lung. This was evaluated with fiberoptic bronchoscopy. See report. Patient had retention of a great deal of thick tenacious secretions but much improved compared to yesterday. Bronchoalveolar lavage cultures are growing a gram red negative rods which is unidentified. No AFB or fungus are seen. Patient did 12 hours of CPAP yesterday and will increase this today. ABGs on FiO2 of 35% shows a pH of 7.308, PCO2 of 54 and PO2 of 100 with a bicarb of 24. CBC is stable. Electrolytes normal. Creatinine is 0.7 with a BUN of 26. Theophylline level is 6.7. The patient's own PIP reselling. 02/02/2017. Today's x-ray is stable. There is bibasilar atelectasis. The patient was evaluated with fiberoptic bronchoscopy. See report. He still had a lot of retained secretions. He is making good improvement with the weaning protocol. He did at least 8 hours on CPAP. His cytologies were class I. He has some mucosal hypertrophy in the left upper lung between the orifice of the lingula in the apical posterior segment in this area was lavaged today for cytology. Sputum is growing gram-negative calixto. ID and sensitivities are not yet available. ABGs on FiO2 35% on mechanical ventilation showed pH 7.32, PCO2 55.6, PO2 103 and a bicarb of 28. Electrolytes and kidney CBC are stable. Theophylline level is 5.7 and this appears to be effective at this level. Physical exam. Psychiatric arousable. Neurologic. Cranial nerves are been intact and patient moves all 4 extremities Face. Symmetrical. No edema of the lips and tongue Neck. Symmetrical no meningismus Chest. Hyperinflated mild coarse large airway congestion Heart. No gallop Abdomen. Nondistended. Only rare bowel sounds Lower extremities. No edema nothing to suggest deep venous thrombophlebitis Lymphatics. No submandibular cervical supraclavicular or epitrochlear adenopathy The remainder the physical exam is negative. Plan. 01/25/2017 1. Mechanical ventilation. Ventilator weaning protocol. Ventilator physical therapy protocol. 2. Sputum for Gram stain culture and sensitivity 3. Legionella titer 4. Cold agglutinins. 5. Daily chest x-ray and ABGs 6. See orders 7. Based on this patient's past hospitalization he will probably require a PCO2 of about 50-60 in order to weaning from the ventilator. 8. Note history of seizure disorder. Agree with restarting Dilantin 9. Theophylline level 01/26/2017. 1. Weaning protocol 2. Keep PCO2 approximately 60 3. Daily chest x-rays and ABGs. 4. Have ordered daily theophylline 01/28/2017. 1. Decrease assist control today. That is PCO2 rise to 60 2. Continue weaning protocol 3. Daily chest x-ray ABGs and lab 01/29/2017. 1. Assist-control decreased to 6. 2. Start Diamox 250 every 12 hours 3. See today's note above. 01/30/2017. 1. Continue weaning protocol 2. See my note above 01/31/2017. 1. See today's note above 2. Repeat fiberoptic bronchoscopy tomorrow 3. Weaning protocol 4. Physical therapy protocol 5. Daily chest x-ray ABGs and lab 02/01/2017. 1. See my note above. 2. Repeat fiberoptic bronchoscopy tomorrow 3. Advance weaning protocol and physical therapy protocol. 4. Sputum showed gram-negative calixto. No identity and no sensitivities 11/2016. 1. See my note above. 2. If, the patient continues to improve we may try extubation tomorrow. In the past she has been very difficult to extubate Exam (Progress Note) - Constitutional Vitals: Period Temp Pulse Resp BP Sys/Centeno Pulse Ox Last 24 Hr 97.4 F-98.8 F 54-92 10-23 91-131/55-95 95-100 Results - Labs CBC & BMP: 02/02/17 04:16 02/02/17 04:16
--- NOTE | 2017-02-02 14:44 | Hospitalist Progress Note ---
Assessment and Plan (1) COPD exacerbation Status: Acute Assessment and plan: The patient continues therapy for lung infection with IV antibiotic. I coordinated care with Dr. Souza. The patient is improving and the therapeutic lavage he received today should help oxygen delivery. The patient will continue weaning as tolerated and we anticipate extubation later this week. Current Visit: No (2) Respiratory failure, [id number] Status: Acute Current Visit: No Qualifiers: Respiratory failure complication: hypoxia and hypercapnia (3) Right middle lobe pneumonia Status: Acute Current Visit: No Qualifiers: Pneumonia type: due to unspecified organism Qualified Code(s): J18.1 - Lobar pneumonia, unspecified organism Hospitalist: Subjective Interval history: The patient continues treatment with mechanical ventilation therapy for COPD with exacerbation. The patient had no new complaints today and is tolerating tube feedings. Exam - Constitutional Vitals: Period Temp Pulse Resp BP Sys/Centeno Pulse Ox Last 24 Hr 97.9 F-98.8 F 54-75 10-23 91-131/55-95 95-100 Exam: Constitutional System: Mild distress. No tremulousness. The patient is orally intubated and mechanically ventilated Head: Normocephalic, atraumatic. Ears, Nose and Throat System: No evidence of Otitis or Mastoiditis. No epistaxis or discharge Eyes System: Pupils equal, round, and reactive. Extraocular muscles intact. Neck: Supple, without adenopathy, trace jugular venous distention. No thyromegaly, neck mass, or prior surgery apparent. Respiratory System: Chest rhonchi diffusely to auscultation. Cardiovascular System: Heart with regular rate and rhythm. No murmur. GI System: Abdomen soft, nontender. Normo active bowel sounds present. Musculoskeletal System: limbs with trace pedal edema. Full distal pulses. Results - Labs CBC & BMP: 02/02/17 04:16 02/02/17 04:16 Lab Results: I have reviewed the past 24 hour labs
[2017-02-03] MEDS: ALBUTEROL/IPRATROPIUM 3 ML NEB RESP TX SCH ×4 (01:16→20:20)
[2017-02-03] MEDS: AMINOPHYLLINE 500 MG in SODIUM CHLORIDE 0.9% 480 ML IV SCH ×2 (02:40→18:06)
[2017-02-03 03:24] LABS: ABG PH 7.326 (7.35-7.45); Allen Test Positive; Pt O2 Delivery Device Ventilator
[2017-02-03 03:25] LABS: ABG Base Excess 0.5 MMOL/L (-2.5-2.5); ABG HCO3 27.6 MMOL/L (20-26); ABG Oxygen Saturation 96.5 % (95-100); ABG PO2 83.2 MM HG (80-95); ABG TCO2 29.2 MMOL/L (23-27)
[2017-02-03] MEDS: PROPOFOL 1,000 MG/100 ML BOTTLE IV SCH ×2 (04:01→08:50)
[2017-02-03] MEDS: PIPERACILLIN/TAZOBACTAM 3,375 MG in SODIUM CHLORIDE 0.9% 100 ML IV SCH (04:02)
[2017-02-03] MEDS: ENOXAPARIN 40 MG/0.4 ML SYRINGE SUBCUT SCH (04:02)
[2017-02-03 04:29] LABS: Calcium 8.3 MG/DL (8.5-10.1); Osmolality,Calculated 284.4 MOS/KG (273-304); Potassium 3.8 MMOL/L (3.5-5.1)
[2017-02-03] MEDS: methylPREDNISolone SOD SUC 40 MG/1 ML VIAL IV SCH ×3 (06:05→20:53)
[2017-02-03] MEDS: INSULIN REGULAR 100 UNIT/ML SUBCUT SCH ×3 (06:05→17:56)
--- NOTE | 2017-02-03 08:29 | XRay Report ---
Portable chest Exam date: 02/03/2017 4:00 AM Indication: Shortness of breath, cough respiratory failure Comparison: Previous day at 0321 hours Findings: Cardiomediastinal contours are stable with no change in tube or line placement. Bibasilar volume loss with small effusions likely unchanged. No acute osseous abnormalities. Visualized upper abdomen demonstrates no acute pathology. Impression: Bibasilar volume loss with small effusions, unchanged PROCEDURE INTERPRETED AT [facility] DEPARTMENT OF RADIOLOGY Final Report Signed by: Manuel Mckeon
[2017-02-03] MEDS: MONTELUKAST 10 MG TABLET PO SCH (09:02)
[2017-02-03] MEDS: CARVEDILOL 3.125 MG TABLET PO SCH ×2 (09:02→20:27)
[2017-02-03] MEDS: CLORAZEPATE 7.5 MG TABLET PO SCH ×3 (09:02→20:27)
[2017-02-03] MEDS: PHENYTOIN 100 MG/4 ML UDCUP PO SCH (09:02)
[2017-02-03] MEDS: PANTOPRAZOLE 40 MG VIAL IV SCH (09:03)
[2017-02-03 10:36] LABS: ABG Base Excess -0.6 MMOL/L (-2.5-2.5); ABG HCO3 23.8 MMOL/L (20-26); ABG Oxygen Saturation 92.7 % (95-100); ABG PCO2 57.2 MM HG (35-48); ABG PH 7.293 (7.35-7.45); ABG PO2 67.3 MM HG (80-95); ABG TCO2 23.9 MMOL/L (23-27)
[2017-02-03] MEDS: MIDAZOLAM 100 MG in SODIUM CHLORIDE 0.9% 80 ML IV SCH (11:09)
--- NOTE | 2017-02-03 11:15 | Pathology Report from [facility] ---
[facility] ACCESSION # : [id number] PATIENT NAME : Mo Vides ORDERING DR : MONICA ROMO MD CLINICAL HX: Respiratory Arrest POST-OP DX: Same SPECIMEN INFO: Washing,Bronchial,MARIA TERESA - 25 mls bloody, cloudy CLASS: II CLASS COMMENTS: Blood, acute inflammation, squamous metaplasia, macrophages, reactive/reparative changes.CELL BLOCK: Same CLASS LEGEND: CLASS 0 Material inadequate for diagnosis because of (see comment) CLASS I Absence of atypical or abnormal cells CLASS II Atypical Cytology but no evidence of malignancy CLASS III Cytology suggestive of but not conclusive for malignancy CLASS IV Cytology strongly suggestive of malignancy CLASS V Cytology conclusive for malignancy COLLECTED DATE: 02/02/2017 [facility] REPORT DATE: 02/03/2017 ELECTRONICALLY SIGNED BY: Onesimo Culp III, M.D. 02/03/2017 - 9:29:56 MTDChavez
[2017-02-03] MEDS ORDERED: ALBUTEROL/IPRATROPIUM 3 ML NEB RESP TX PRN (11:42)
[2017-02-03 13:49] LABS: ABG Base Excess 0.5 MMOL/L (-2.5-2.5); ABG HCO3 24.8 MMOL/L (20-26); ABG Oxygen Saturation 93.7 % (95-100); ABG PCO2 49.5 MM HG (35-48); ABG PH 7.348 (7.35-7.45); ABG PO2 68.7 MM HG (80-95); ABG TCO2 23.1 MMOL/L (23-27); Pt O2 Delivery Device Venturi Mask
--- NOTE | 2017-02-03 14:21 | Pulmonology Progress Note ---
Pulmonary - PN: Subj Interval history: This is a 61-year-old white male whom I saw in pulmonary consultation on 2016. I have seen this patient in the past. He has a long history of noncompliance with medications. He also in the past has been very difficult to wean from mechanical ventilation and usually he requires a PCO2 of approximately 60 My impressions were. 1. Acute respiratory failure for oxygen and carbon dioxide requiring intubation mechanical ventilation 2. Probable right lower lung pneumonia 3. Obstructive lung disease with bronchospastic disease 4. Heart disease with past history of congestive heart failure 5. Tobacco abuse 6. Noncompliant patient 7. Seizure disorder 8. History of high blood pressure 9. Pulmonary hypertension. Most likely secondary to hypoxemia, COPD and obstructive sleep apnea. 10. See past history 11. Past history of tracheotomy 01/26/2017. Today's x-ray shows hyperinflation is possible faint infiltrate in the lateral basal segment of the left lower lung. ABGs on mechanical ventilation FiO2 of 40% shows a pH 7.507 PCO2 36 PO2 of 128 and a bicarb of 29.3. Ventilator changes have been made to allow the patient's CO2 to increase. He is on a weaning protocol. Electrolytes are normal. Creatinine is 0.8 with a BUN of 18 white count is 9680 segs H&H 14.2/40.9. Patient is on IV Aminophyllin. Aminophyllin level is pending. He is on infusion at 22 mg/h. He was not loaded with theophylline and his admit level was less than 2.0 consistent with noncompliance with his medicines. 01/28/2017. Patient's chest x-ray is stable. Heart size is top normal. No infiltrates. No heart failure. No pneumothorax. Endotracheal tube is in good position. ABGs are noted. Have cut back on the patient's assist control rate. He will require a PCO2 of about 60 in order to extubate him. Patient did fairly well for a period of time on CPAP yesterday. Eventually he became very anxious and had to be put back on the ventilator. His girlfriend has told staff that the patient does not take any of his medicines. She says he is confused most of the time at home. There are no positive cultures. Electrolytes are normal and creatinine is 0.7. CBC is stable. White count is 10,700 with 83 segs 9 lymphs. Theophylline level 6.5. We can leave it at this level is a peripheral wheezes seem to have resolved 01/29/2017.And to prevent.Versed appears to work better for sedation HEENT patient has been changed to Versed. Chest x-ray. Mild to moderate bibasilar atelectasis. No heart failure. Endotracheal tube is in good position. No pneumothorax. ABGs on FiO2 35% assist control of 8 shows a pH of 7.41, PCO2 53.9, PO2 88.5 and a bicarb of 33.4. I will decrease the patient's assist control to 6. We will continue his weaning protocol per yesterday he did 4 hours of CPAP. Will start patient on Diamox 250 mg IV push every 12 hours. 01/30/2017. Chest x-ray shows enlarged pulmonary arteries. There is no hilar adenopathy. There is calcification aortic knob. Endotracheal tube is in good position there is bibasilar atelectasis. There is no heart failure. No pneumothorax. There are no positive cultures. ABGs on mechanical ventilation with assist control of 6 and FiO2 35% shows a pH of 7.325, PCO2 is 58.4, PO2 is 97.9 and bicarb is 26.4. Patient did not do very good with his CPAP trials yesterday and I am not sure why. In the past she has been very difficult to wean him when taken off several times he is required reintubation. This is been discussed with Dr. Hanna. Glucoses are normal. We will continue to weaning protocol and when things look opportune will try to extubate the patient. This will not be by the cookbook 01/31/2017. Patient was evaluated with fiberoptic bronchoscopy this morning. His sputum was so thick the scope had to be withdrawn 6 or 7 times and clean. See report. He will require repeat bronchoscopy tomorrow morning. This will probably help his breathing a good bit. He is on the weaning protocol and we will continue to push as hard as possible. This patient with will require a PCO2 of about 60 to extubating him and will probably have to do a power extubation. There are no positive cultures. ABGs today on mechanical ventilation FiO2 is 35% shows a pH 7.32, PCO2 53.7, PO2 of 100 and a bicarb of 24.4. Electrolytes are normal. Creatinine is 0.7. BUNs 20. CBC is stable. Theophylline level is 5.8. 02/01/2017. Today's chest x-ray shows cardiomegaly. There is atelectasis over the left lower lung where there are also some air bronchograms and there is atelectasis over the right lower lung. This was evaluated with fiberoptic bronchoscopy. See report. Patient had retention of a great deal of thick tenacious secretions but much improved compared to yesterday. Bronchoalveolar lavage cultures are growing a gram red negative rods which is unidentified. No AFB or fungus are seen. Patient did 12 hours of CPAP yesterday and will increase this today. ABGs on FiO2 of 35% shows a pH of 7.308, PCO2 of 54 and PO2 of 100 with a bicarb of 24. CBC is stable. Electrolytes normal. Creatinine is 0.7 with a BUN of 26. Theophylline level is 6.7. The patient's own PIP reselling. 02/02/2017. Today's x-ray is stable. There is bibasilar atelectasis. The patient was evaluated with fiberoptic bronchoscopy. See report. He still had a lot of retained secretions. He is making good improvement with the weaning protocol. He did at least 8 hours on CPAP. His cytologies were class I. He has some mucosal hypertrophy in the left upper lung between the orifice of the lingula in the apical posterior segment in this area was lavaged today for cytology. Sputum is growing gram-negative calixto. ID and sensitivities are not yet available. ABGs on FiO2 35% on mechanical ventilation showed pH 7.32, PCO2 55.6, PO2 103 and a bicarb of 28. Electrolytes and kidney CBC are stable. Theophylline level is 5.7 and this appears to be effective at this level. 02/03/2017. There is a 61-year-old white male. He had an acute respiratory arrest. He required intubation and mechanical ventilation. He had a tremendous amount of retained secretions and he is been bronchoscoped approximately 3 times. He has been a noncompliant patient as far as his medicines as far as not smoke and is concerned. I can recall extubating him at least 2 other times in the past he always required a PCO2 of 60 in order to extubating. He has underlying seizure disorder, high blood pressure, pulmonary hypertension. He has a past history of heart disease with congestive heart failure. Patient has improved significantly. He was extubated several hours ago. On an FiO2 of 30% his pH is 7.348, PCO2 is 49.5, PO2 is 68.7 and bicarb is 24.8. He is on Diamox and IV Aminophyllin. His theophylline level is 5.7. We are evaluating to see if he can swallow. He is pulled out his NG tube so I am going to switch his Dilantin 250 IV push every 8 hours which is his p.o. dose his electrolytes are normal. Creatinine is 0.7 with a BUN of 25 and CBC is stable. Bronchoscopy specimen from 10/12 and 02/01/17 of grown E. coli. I have started the patient on Fortaz which has an MARISSA of less than 1. When this patient leaves the hospital he can be referred back to his primary care physician. He is noncompliant and it would serve no purpose for him to see me. Physical exam. Psychiatric arousable. Neurologic. Cranial nerves are been intact and patient moves all 4 extremities Face. Symmetrical. No edema of the lips and tongue Neck. Symmetrical no meningismus Chest. Hyperinflated mild coarse large airway congestion Heart. No gallop Abdomen. Nondistended. Only rare bowel sounds Lower extremities. No edema nothing to suggest deep venous thrombophlebitis Lymphatics. No submandibular cervical supraclavicular or epitrochlear adenopathy The remainder the physical exam is negative. Plan. 01/25/2017 1. Mechanical ventilation. Ventilator weaning protocol. Ventilator physical therapy protocol. 2. Sputum for Gram stain culture and sensitivity 3. Legionella titer 4. Cold agglutinins. 5. Daily chest x-ray and ABGs 6. See orders 7. Based on this patient's past hospitalization he will probably require a PCO2 of about 50-60 in order to weaning from the ventilator. 8. Note history of seizure disorder. Agree with restarting Dilantin 9. Theophylline level 01/26/2017. 1. Weaning protocol 2. Keep PCO2 approximately 60 3. Daily chest x-rays and ABGs. 4. Have ordered daily theophylline 01/28/2017. 1. Decrease assist control today. That is PCO2 rise to 60 2. Continue weaning protocol 3. Daily chest x-ray ABGs and lab 01/29/2017. 1. Assist-control decreased to 6. 2. Start Diamox 250 every 12 hours 3. See today's note above. 01/30/2017. 1. Continue weaning protocol 2. See my note above 01/31/2017. 1. See today's note above 2. Repeat fiberoptic bronchoscopy tomorrow 3. Weaning protocol 4. Physical therapy protocol 5. Daily chest x-ray ABGs and lab 02/01/2017. 1. See my note above. 2. Repeat fiberoptic bronchoscopy tomorrow 3. Advance weaning protocol and physical therapy protocol. 4. Sputum showed gram-negative calixto. No identity and no sensitivities 02/02/2070 1. See my note above. 2. If, the patient continues to improve we may try extubation tomorrow. In the past she has been very difficult to extubate 02/03/2017. 1. Extubated 02/03/2017. 2. E. coli growing from the sputum. Fortaz started 3. See today's note above. 4. Dr. Chino De Luna will take over this case beginning 02/04/2017. 5. When discharged this patient should be referred back to his primary care physician. He is noncompliant it was served no purpose for him to see me Exam (Progress Note) - Constitutional Vitals: Period Temp Pulse Resp BP Sys/Centeno Pulse Ox Last 24 Hr 97.2 F-98.9 F 56-88 11-28 89-169/55-100 95-100 Results - Labs CBC & BMP: 02/02/17 04:16 02/03/17 04:00
[2017-02-03] MEDS ORDERED: cloNIDine 0.2 MG/24 HR PATCH TRANSDERM SCH (14:30)
--- NOTE | 2017-02-03 14:40 | Hospitalist Progress Note ---
Assessment and Plan (1) COPD exacerbation Status: Acute Assessment and plan: The patient continues therapy for lung infection with IV antibiotic. I coordinated care with Dr. Souza. The patient is improving and the therapeutic lavage he received today should help oxygen delivery. The patient will continue weaning as tolerated and we anticipate extubation later this week. Current Visit: No (2) Respiratory failure, [id number] Status: Acute Current Visit: No Qualifiers: Respiratory failure complication: hypoxia and hypercapnia (3) Right middle lobe pneumonia Status: Acute Current Visit: No Qualifiers: Pneumonia type: due to unspecified organism Qualified Code(s): J18.1 - Lobar pneumonia, unspecified organism Hospitalist: Subjective Interval history: Mr. Vides is now extubated and off the ventilator. The patient has no complaint of chest pain or palpitations. He is breathing comfortably with acceptable gas exchange. Exam - Constitutional Vitals: Period Temp Pulse Resp BP Sys/Centeno Pulse Ox Last 24 Hr 97.2 F-98.9 F 56-88 11-28 89-169/55-100 95-100 Exam: Constitutional System: Minimal distress. No tremulousness. The patient is breathing spontaneously Head: Normocephalic, atraumatic. Ears, Nose and Throat System: No evidence of Otitis or Mastoiditis. No epistaxis or discharge Eyes System: Pupils equal, round, and reactive. Extraocular muscles intact. The patient has some scleral edema. Neck: Supple, without adenopathy, trace jugular venous distention. No thyromegaly, neck mass, or prior surgery apparent. Respiratory System: Chest few rhonchi diffusely to auscultation. Cardiovascular System: Heart with regular rate and rhythm. No murmur. GI System: Abdomen soft, nontender. Normo active bowel sounds present. Musculoskeletal System: limbs with 1+ pedal edema. Full distal pulses. Results - Labs CBC & BMP: 02/02/17 04:16 02/03/17 04:00
[2017-02-03] MEDS: PHENYTOIN 100 MG/2 ML VIAL IV SCH (17:10)
[2017-02-03] MEDS: GENTAMICIN 0.3% OPH SOLN 5 ML BOTTLE BOTH EYES SCH (18:06)
[2017-02-04] MEDS: INSULIN REGULAR 100 UNIT/ML SUBCUT SCH ×5 (00:23→23:48)
[2017-02-04] MEDS: GENTAMICIN 0.3% OPH SOLN 5 ML BOTTLE BOTH EYES SCH ×5 (00:54→23:52)
[2017-02-04] MEDS: PHENYTOIN 100 MG/2 ML VIAL IV SCH ×3 (00:55→17:18)
[2017-02-04] MEDS: hydrALAZINE 20 MG/1 ML VIAL IV PRN ×2 (00:55→07:03)
[2017-02-04] MEDS: ALBUTEROL/IPRATROPIUM 3 ML NEB RESP TX SCH ×4 (01:00→19:36)
[2017-02-04 02:38] LABS: ABG Base Excess -0.2 MMOL/L (-2.5-2.5); ABG HCO3 23.9 MMOL/L (20-26); ABG Oxygen Saturation 94.9 % (95-100); ABG PH 7.417 (7.35-7.45); ABG PO2 63.8 MM HG (80-95); ABG TCO2 25.1 MMOL/L (23-27); Allen Test Positive; Pt O2 Delivery Device Venturi Mask
[2017-02-04] MEDS: PROPOFOL 1,000 MG/100 ML BOTTLE IV SCH (03:04)
[2017-02-04] MEDS: ENOXAPARIN 40 MG/0.4 ML SYRINGE SUBCUT SCH (05:55)
[2017-02-04] MEDS: methylPREDNISolone SOD SUC 40 MG/1 ML VIAL IV SCH ×2 (05:56→17:15)
[2017-02-04 06:04] LABS: Osmolality,Calculated 285.1 MOS/KG (273-304)
[2017-02-04] MEDS: POTASSIUM CHLORIDE RIDER 20 MEQ in PREMIX 1 EACH IV PRN ×4 (07:36→19:30)
--- NOTE | 2017-02-04 07:42 | Pulmonology Progress Note ---
Pulmonary - PN: Subj Interval history: Patient is a 62-year-old man that apparently is a smoker with COPD came in with respiratory failure and has been on the ventilator. He was felt to have pneumonia along with a COPD exacerbation. He apparently has some pulmonary hypertension. He has been treated for heart failure also. He was extubated yesterday and his breathing is been doing okay. He is hard to understand when he talks but he says he is doing okay. His chest x-ray has been reasonably clear. He still requires some oxygen and respiratory therapy. He is reasonably stable at present. He does have high blood pressure and is getting medications. He has not been able to swallow yet. Exam (Progress Note) - Constitutional Vitals: Period Temp Pulse Resp BP Sys/Centeno Pulse Ox Last 24 Hr 97.2 F-99.5 F 67-115 12-23 125-178/69-111 90-99 General appearance: no acute distress (The patient is reasonably comfortable at present.), over weight - Head Head exam: Present: normal inspection, normocephalic - Eye Eye exam: Present: EOMI. Absent: scleral icterus Pupils: Present: SANDIE - ENT ENT exam: Present: normal exam - Neck Neck exam: Absent: lymphadenopathy, meningismus, thyromegaly - Respiratory Respiratory exam: Present: decreased breath sounds, prolonged expiratory phase, rhonchi. Absent: accessory muscle use - Cardiovascular Cardiovascular exam: Present: regular rate and rhythm. Absent: gallop, systolic murmur - GI/Abdominal GI/Abdominal exam: Present: normal bowel sounds, distended, soft. Absent: organomegaly, tenderness - Extremities Exam Extremities exam: Absent: calf tenderness, edema - Neurological Exam Neurological exam: Present: alert, oriented X3, CN II-XII intact. Absent: motor sensory deficit - Psychiatric Psychiatric exam: Absent: anxious - Skin Skin exam: Present: warm, dry Results - Labs CBC & BMP: 02/02/17 04:16 02/04/17 05:15 Labs: His PO2 63 with a PCO2 38 and a pH of 7.41 - Diagnostic Findings Procedure: Chest x-ray: image reviewed by me, report reviewed by me (Chest x- ray is relatively clear now.) Assessment and Plan (1) Respiratory distress, acute Status: Acute Assessment and plan: Patient came in with respiratory distress and respiratory failure and has been on the ventilator. He is doing better now is off the ventilator and is fairly stable. Current Visit: No (2) COPD exacerbation Problem details: Improving when compared to last few days. Appreciate Pulm f/u. Continue current treatment plan. Dc home with home oxygen if continue to improve in am. Status: Resolved Assessment and plan: Patient is doing better we will continue with steroids and bronchodilator therapy. Current Visit: No (3) Seizure disorder Problem details: Continue home meds Status: Chronic Assessment and plan: He is getting seizure medicines but no signs of seizures now. Current Visit: No (4) Pulmonary hypertension Problem details: Appreciate recs from Pulm. Continue current medical treatment regimen. Status: Chronic Assessment and plan: The patient apparently has some pulmonary hypertension from all his many problems. Current Visit: No (5) History of obstructive sleep apnea Status: Acute Assessment and plan: He will need CPAP or BiPAP at night. Current Visit: No (6) Right middle lobe pneumonia Status: Acute Assessment and plan: His chest x-ray is much better and his lungs are clear now. Current Visit: No Qualifiers: Pneumonia type: due to unspecified organism Qualified Code(s): J18.1 - Lobar pneumonia, unspecified organism (7) Hypertension, essential Status: Acute Assessment and plan: Patient will continue with blood pressure medicines. Current Visit: Yes
[2017-02-04] MEDS: CLORAZEPATE 7.5 MG TABLET PO SCH ×3 (08:46→21:40)
[2017-02-04] MEDS: CARVEDILOL 3.125 MG TABLET PO SCH ×2 (08:46→21:40)
[2017-02-04] MEDS: MONTELUKAST 10 MG TABLET PO SCH (08:46)
[2017-02-04] MEDS: PANTOPRAZOLE 40 MG VIAL IV SCH (08:53)
--- NOTE | 2017-02-04 10:09 | Hospitalist Progress Note ---
Assessment and Plan (1) COPD exacerbation Status: Acute Assessment and plan: The patient continues therapy for lung infection with IV antibiotic. The patient is improving and the therapeutic lavage he received yesterday should help oxygen delivery. I am going to add Vasotec to treat the patient's essential hypertension. Will recheck electrolytes tomorrow. Current Visit: No (2) Respiratory failure, [id number] Status: Acute Current Visit: No Qualifiers: Respiratory failure complication: hypoxia and hypercapnia (3) Right middle lobe pneumonia Status: Acute Current Visit: No Qualifiers: Pneumonia type: due to unspecified organism Qualified Code(s): J18.1 - Lobar pneumonia, unspecified organism Hospitalist: Subjective Interval history: The patient is awake and drowsy. The patient is unable to swallow safely. The patient is hypertensive. He is now extubated. Exam - Constitutional Vitals: Period Temp Pulse Resp BP Sys/Centeno Pulse Ox Last 24 Hr 98.5 F-99.5 F 79-115 14-23 138-178/84-111 90-99 Exam: Constitutional System: Minimal distress. No tremulousness. The patient is breathing spontaneously Head: Normocephalic, atraumatic. Ears, Nose and Throat System: No evidence of Otitis or Mastoiditis. No epistaxis or discharge Eyes System: Pupils equal, round, and reactive. Extraocular muscles intact. The patient has some scleral edema. Neck: Supple, without adenopathy, trace jugular venous distention. No thyromegaly, neck mass, or prior surgery apparent. Respiratory System: Chest few rhonchi diffusely to auscultation. Cardiovascular System: Heart with regular rate and rhythm. No murmur. GI System: Abdomen soft, nontender. Normo active bowel sounds present. Musculoskeletal System: limbs with 1+ pedal edema. Full distal pulses. Results - Labs CBC & BMP: 02/02/17 04:16 02/04/17 05:15 Lab Results: I have reviewed the past 24 hour labs
[2017-02-04] MEDS: ENALAPRIL 2.5 MG/2 ML VIAL IV SCH ×3 (10:17→22:03)
--- NOTE | 2017-02-04 11:47 | XRay Report ---
History: COPD. On ventilator Date: 02/04/2017 Study: Chest x-ray AP portable Comparison exam: 02/03/2017 The endotracheal and nasogastric tubes have been removed. A right upper arm PICC line is in place without change. The cardiomediastinal silhouette and pulmonary vasculature are stable. There is no new or worsening infiltrate. There is some mild platelike subsegmental atelectasis in the right lung base, though this is improved. There is no increasing pleural effusion. Osseous structures are unchanged. Impression: Improved aeration in the right lung base, though there is some persistent right basilar platelike atelectasis. Interval extubation and nasogastric tube removal PROCEDURE INTERPRETED AT [facility] DEPARTMENT OF RADIOLOGY Final Report Signed by: Dr. Christi Nelson
[2017-02-04] MEDS: AMINOPHYLLINE 500 MG in SODIUM CHLORIDE 0.9% 480 ML IV SCH (11:49)
[2017-02-04] MEDS: POTASSIUM CHLORIDE RIDER 10 MEQ in PREMIX 1 EACH IV PRN (12:17)
[2017-02-05] MEDS: POTASSIUM CHLORIDE RIDER 20 MEQ in PREMIX 1 EACH IV PRN ×2 (00:43→06:10)
[2017-02-05] MEDS: PHENYTOIN 100 MG/2 ML VIAL IV SCH ×3 (00:43→16:15)
[2017-02-05] MEDS: ALBUTEROL/IPRATROPIUM 3 ML NEB RESP TX SCH ×4 (01:12→19:05)
[2017-02-05 04:45] LABS: Basophils # 0.1 10*3/uL (0.0-0.2); Basophils % 0.8 % (0.0-0.8); Eosinophils # 0.4 10*3/uL (0.0-0.87); Eosinophils % 3.2 % (0.00-10.9); Hematocrit 43.6 VOL% (42.0-52.0); Hemoglobin 15.8 GM/DL (14.0-18.0); Immature Granulocytes % 0.6 %; Immature Granulocytes Absolute 0.07 #; Mean Corpuscular HGB Conc 36.2 GM/DL (32-36); Mean Corpuscular Hemoglobin 31 PG (27-34); Mean Corpuscular Volume 84.2 FL (87-102); Monocytes # 1.7 10*3/uL (0.11-0.8); Monocytes % 14.1 % (1.7-12.7); Neutrophils # 7.7 10*3/uL (1.4-7.4); Neutrophils % 64.3 % (38.7-73.9); Platelet Count 166 T/CUMM (130-400); Red Blood Count 5.18 MC/CUMM (3.8-5.5); Red Cell Distribution Width 12.6 % (9.3-17.3); White Blood Count 11.9 T/CUMM (4-12)
[2017-02-05 05:20] LABS: Magnesium 2.4 MG/DL (1.8-2.4); Osmolality,Calculated 282.3 MOS/KG (273-304); Potassium 3.5 MMOL/L (3.5-5.1)
[2017-02-05] MEDS: ENOXAPARIN 40 MG/0.4 ML SYRINGE SUBCUT SCH (05:39)
[2017-02-05] MEDS: methylPREDNISolone SOD SUC 40 MG/1 ML VIAL IV SCH ×2 (05:39→16:20)
[2017-02-05] MEDS: ENALAPRIL 2.5 MG/2 ML VIAL IV SCH ×3 (05:39→16:27)
[2017-02-05] MEDS: AMINOPHYLLINE 500 MG in SODIUM CHLORIDE 0.9% 480 ML IV SCH (05:39)
[2017-02-05] MEDS: GENTAMICIN 0.3% OPH SOLN 5 ML BOTTLE BOTH EYES SCH ×3 (05:40→19:10)
[2017-02-05] MEDS: INSULIN REGULAR 100 UNIT/ML SUBCUT SCH ×3 (05:40→17:41)
--- NOTE | 2017-02-05 07:26 | Pulmonology Progress Note ---
Pulmonary - PN: Subj Interval history: Patient is a 62-year-old man that apparently is a smoker with COPD came in with respiratory failure and has been on the ventilator. He was felt to have pneumonia along with a COPD exacerbation. He apparently has some pulmonary hypertension. He has been treated for heart failure also. He was extubated couple days ago and has done fairly well. He apparently had a very good night last night. He is a little more alert and talking and looks comfortable. He feels like his breathing is much better. Overall he seems to be reasonably stable. Exam (Progress Note) - Constitutional Vitals: Period Temp Pulse Resp BP Sys/Centeno Pulse Ox Last 24 Hr 99.0 F-99.6 F 90-107 13-22 98-167/62-106 91-99 Exam: General appearance: no acute distress (The patient is reasonably comfortable at present. He is talking and moving around better.), over weight - Head Head exam: Present: normal inspection, normocephalic - Eye Eye exam: Present: EOMI. Absent: scleral icterus Pupils: Present: SANDIE - ENT ENT exam: Present: normal exam, he does have a narrow hypopharynx. - Neck Neck exam: Absent: lymphadenopathy, meningismus, thyromegaly - Respiratory Respiratory exam: Present: He has fairly good air movement now with prolonged expiration but no wheezing. - Cardiovascular Cardiovascular exam: Present: regular rate and rhythm. Absent: gallop, systolic murmur - GI/Abdominal GI/Abdominal exam: Present: normal bowel sounds, distended, soft. Absent: organomegaly, tenderness - Extremities Exam Extremities exam: Absent: calf tenderness, edema - Neurological Exam Neurological exam: Present: alert, oriented X3, CN II-XII intact. Absent: motor sensory deficit - Psychiatric Psychiatric exam: Absent: anxious - Skin Skin exam: Present: warm, dry Results - Labs CBC & BMP: 02/05/17 04:42 02/05/17 04:42 Assessment and Plan (1) Respiratory distress, acute Status: Acute Assessment and plan: Patient came in with respiratory distress and respiratory failure and has been on the ventilator. He is doing better now is off the ventilator and is fairly stable. He looks more alert and looks like he is breathing much better now. Current Visit: No (2) COPD exacerbation Problem details: Improving when compared to last few days. Appreciate Pulm f/u. Continue current treatment plan. Dc home with home oxygen if continue to improve in am. Status: Chronic Assessment and plan: Patient is doing better we will continue with steroids and bronchodilator therapy. We will change him over to oral theophylline. Current Visit: Yes (3) Seizure disorder Problem details: Continue home meds Status: Chronic Assessment and plan: He is getting seizure medicines but no signs of seizures now. Current Visit: No (4) Pulmonary hypertension Problem details: Appreciate recs from Pulm. Continue current medical treatment regimen. Status: Chronic Assessment and plan: The patient apparently has some pulmonary hypertension from all his many problems. Current Visit: No (5) History of obstructive sleep apnea Status: Acute Assessment and plan: He will need CPAP or BiPAP at night. Current Visit: No (6) Right middle lobe pneumonia Status: Acute Assessment and plan: His chest x-ray is much better and his lungs are clear now. Clinically he is doing much better. Current Visit: No Qualifiers: Pneumonia type: due to unspecified organism Qualified Code(s): J18.1 - Lobar pneumonia, unspecified organism (7) Hypertension, essential Status: Acute Assessment and plan: Patient will continue with blood pressure medicines. Current Visit: Yes
[2017-02-05] MEDS: MONTELUKAST 10 MG TABLET PO SCH (08:58)
[2017-02-05] MEDS: THEOPHYLLINE ER (24 HR) 400 MG CAPSULE PO SCH (08:58)
[2017-02-05] MEDS: CARVEDILOL 3.125 MG TABLET PO SCH ×2 (08:58→21:31)
[2017-02-05] MEDS: PANTOPRAZOLE 40 MG VIAL IV SCH (09:00)
--- NOTE | 2017-02-05 11:54 | Hospitalist Progress Note ---
Assessment and Plan (1) COPD exacerbation Status: Acute Assessment and plan: The patient continues therapy for lung infection with IV antibiotic. The patient is improving and the therapeutic lavage he received Monday should help oxygen delivery. I am going to continue Vasotec to treat the patient's essential hypertension. Will recheck electrolytes tomorrow. The patient will be ready for transfer to the floor probably on Monday. Current Visit: No (2) Respiratory failure, [id number] Status: Acute Current Visit: No Qualifiers: Respiratory failure complication: hypoxia and hypercapnia (3) Right middle lobe pneumonia Status: Acute Current Visit: No Qualifiers: Pneumonia type: due to unspecified organism Qualified Code(s): J18.1 - Lobar pneumonia, unspecified organism Hospitalist: Subjective Interval history: Mr. Patton was admitted to the hospital with COPD exacerbation and respiratory failure. He required mechanical ventilation initially but is now weaned from the ventilator and breathing reasonably comfortable. The patient remains lethargic and is not yet ready for transfer to the floor. Exam - Constitutional Vitals: Period Temp Pulse Resp BP Sys/Centeno Pulse Ox Last 24 Hr 99.0 F-99.5 F 90-103 13-22 98-163/62-106 95-99 Exam: Constitutional System: Minimal distress. No tremulousness. The patient is breathing spontaneously. The patient is lethargic and having difficulty cooperating with therapy. Head: Normocephalic, atraumatic. Ears, Nose and Throat System: No evidence of Otitis or Mastoiditis. No epistaxis or discharge Eyes System: Pupils equal, round, and reactive. Extraocular muscles intact. The patient has some scleral edema. Neck: Supple, without adenopathy, trace jugular venous distention. No thyromegaly, neck mass, or prior surgery apparent. Respiratory System: Chest few rhonchi diffusely to auscultation. Cardiovascular System: Heart with regular rate and rhythm. No murmur. GI System: Abdomen soft, nontender. Normo active bowel sounds present. Musculoskeletal System: limbs with 1+ pedal edema. Full distal pulses. Results - Labs CBC & BMP: 02/05/17 04:42 02/05/17 04:42 Lab Results: I have reviewed the past 24 hour labs
[2017-02-05] MEDS: CLORAZEPATE 7.5 MG TABLET PO SCH ×3 (12:03→21:31)
[2017-02-05] MEDS: POTASSIUM CHLORIDE RIDER 10 MEQ in PREMIX 1 EACH IV PRN (17:17)
[2017-02-06] MEDS: ENALAPRIL 2.5 MG/2 ML VIAL IV SCH ×4 (00:50→19:02)
[2017-02-06] MEDS: INSULIN REGULAR 100 UNIT/ML SUBCUT SCH ×4 (00:51→18:31)
[2017-02-06] MEDS: PHENYTOIN 100 MG/2 ML VIAL IV SCH ×3 (00:51→17:36)
[2017-02-06] MEDS: GENTAMICIN 0.3% OPH SOLN 5 ML BOTTLE BOTH EYES SCH ×4 (00:51→17:39)
[2017-02-06] MEDS: ALBUTEROL/IPRATROPIUM 3 ML NEB RESP TX SCH ×3 (00:59→12:02)
[2017-02-06] MEDS: ENOXAPARIN 40 MG/0.4 ML SYRINGE SUBCUT SCH (05:13)
[2017-02-06] MEDS: methylPREDNISolone SOD SUC 40 MG/1 ML VIAL IV SCH ×2 (05:13→16:54)
[2017-02-06 06:24] LABS: Calcium 9.1 MG/DL (8.5-10.1); Osmolality,Calculated 280.4 MOS/KG (273-304); Potassium 3.6 MMOL/L (3.5-5.1)
[2017-02-06 06:39] LABS: Magnesium 2.4 MG/DL (1.8-2.4); Phosphorous 3.7 MG/DL (2.5-4.9); Prealbumin 46.3 MG/DL (20-40)
--- NOTE | 2017-02-06 07:31 | Pulmonology Progress Note ---
Pulmonary - PN: Subj Interval history: Patient is a 62-year-old man that apparently is a smoker with COPD came in with respiratory failure and has been on the ventilator. He was felt to have pneumonia along with a COPD exacerbation. He apparently has some pulmonary hypertension. He has been treated for heart failure also. He was extubated couple days ago and has done fairly well. He has done well last night and he said he rested fairly well. He feels like his breathing is doing much better. His shortness of breath is improved. He is eating okay and starting to move around a little better. He looks quite stable at present. Exam (Progress Note) - Constitutional Vitals: Period Temp Pulse Resp BP Sys/Centeno Pulse Ox Last 24 Hr 98.6 F-99.3 F 75-115 13-22 84-169/52-106 93-99 Exam: General appearance: no acute distress (The patient is reasonably comfortable at present. He is talking and moving around better. He is not having any respiratory distress.), over weight - Head Head exam: Present: normal inspection, normocephalic - Eye Eye exam: Present: EOMI. Absent: scleral icterus Pupils: Present: SANDIE - ENT ENT exam: Present: normal exam, he does have a narrow hypopharynx. - Neck Neck exam: Absent: lymphadenopathy, meningismus, thyromegaly - Respiratory Respiratory exam: Present: He has fairly good air movement now with prolonged expiration but no wheezing. He looks like he is breathing comfortably. - Cardiovascular Cardiovascular exam: Present: regular rate and rhythm. Absent: gallop, systolic murmur - GI/Abdominal GI/Abdominal exam: Present: normal bowel sounds, distended, soft. Absent: organomegaly, tenderness - Extremities Exam Extremities exam: Absent: calf tenderness, edema - Neurological Exam Neurological exam: Present: alert, oriented X3, CN II-XII intact. Absent: motor sensory deficit - Psychiatric Psychiatric exam: Absent: anxious - Skin Skin exam: Present: warm, dry Results - Labs CBC & BMP: 02/05/17 04:42 02/06/17 05:00 Assessment and Plan (1) Respiratory distress, acute Status: Acute Assessment and plan: Patient came in with respiratory distress and respiratory failure and has been on the ventilator. He is doing better now is off the ventilator and is fairly stable. He looks more alert and looks like he is breathing much better now. His O2 saturations are stable. His vital signs look good. He can move to a regular room today. Current Visit: No (2) COPD exacerbation Problem details: Improving when compared to last few days. Appreciate Pulm f/u. Continue current treatment plan. Dc home with home oxygen if continue to improve in am. Status: Chronic Assessment and plan: Patient is doing better we will continue with steroids and bronchodilator therapy. We will change him over to oral theophylline. Current Visit: Yes (3) Seizure disorder Problem details: Continue home meds Status: Chronic Assessment and plan: He is getting seizure medicines but no signs of seizures now. Current Visit: No (4) Pulmonary hypertension Problem details: Appreciate recs from Pulm. Continue current medical treatment regimen. Status: Chronic Assessment and plan: The patient apparently has some pulmonary hypertension from all his many problems. Current Visit: No (5) History of obstructive sleep apnea Status: Acute Assessment and plan: He will need CPAP or BiPAP at night. Current Visit: No (6) Right middle lobe pneumonia Status: Acute Assessment and plan: His chest x-ray is much better and his lungs are clear now. Clinically he is doing much better. Current Visit: No Qualifiers: Pneumonia type: due to unspecified organism Qualified Code(s): J18.1 - Lobar pneumonia, unspecified organism (7) Hypertension, essential Status: Acute Assessment and plan: Patient will continue with blood pressure medicines. He appears to be hemodynamically stable. Current Visit: Yes Specialty Discharge - Follow Up or Referrals
[2017-02-06] MEDS: POTASSIUM CHLORIDE RIDER 20 MEQ in PREMIX 1 EACH IV PRN (08:02)
[2017-02-06] MEDS: THEOPHYLLINE ER (24 HR) 400 MG CAPSULE PO SCH (09:14)
[2017-02-06] MEDS: MONTELUKAST 10 MG TABLET PO SCH (09:14)
[2017-02-06] MEDS: PANTOPRAZOLE 40 MG VIAL IV SCH (09:14)
[2017-02-06] MEDS: CARVEDILOL 3.125 MG TABLET PO SCH ×2 (09:14→21:04)
[2017-02-06] MEDS: CLORAZEPATE 7.5 MG TABLET PO SCH (09:32)
[2017-02-06] MEDS: CLORAZEPATE 3.75 MG TABLET PO SCH ×3 (09:38→21:04)
[2017-02-06] MEDS: POTASSIUM CHLORIDE RIDER 10 MEQ in PREMIX 1 EACH IV PRN (10:12)
--- NOTE | 2017-02-06 11:28 | Hospitalist Progress Note ---
Assessment and Plan (1) COPD exacerbation Problem details: Improving when compared to last few days. Appreciate Pulm f/u. Continue current treatment plan. Dc home with home oxygen if continue to improve in am. Status: Chronic Assessment and plan: IV antibiotics, edi Underwent therapeutic lavage Monday PO theophylline Current Visit: Yes (2) Respiratory failure, [id number] Status: Acute Current Visit: No Qualifiers: Respiratory failure complication: hypoxia and hypercapnia (3) Right middle lobe pneumonia Status: Acute Current Visit: No Qualifiers: Pneumonia type: due to unspecified organism Qualified Code(s): J18.1 - Lobar pneumonia, unspecified organism Hospitalist: Subjective Interval history: No acute events overnight. Patient oriented to person and place. Exam - Constitutional Vitals: Period Temp Pulse Resp BP Sys/Centeno Pulse Ox Last 24 Hr 98.2 F-99.3 F 75-115 13-22 84-158/52-104 93-100 General appearance: normal weight - Head Head exam: Present: normocephalic, atraumatic - Eye Eye exam: Present: EOMI Pupils: Present: SANDIE - ENT ENT exam: Present: normal exam - Neck Neck exam: Present: normal inspection - Respiratory Respiratory exam: Present: clear to auscultation bilaterally. Absent: rhonchi, wheezes - Cardiovascular Cardiovascular exam: Present: regular rate and rhythm - GI/Abdominal GI/Abdominal exam: Present: normal bowel sounds, soft. Absent: tenderness, rebound - Extremities Exam Extremities exam: Present: normal inspection - Back Exam Back exam: Present: normal inspection - Neurological Exam Neurological exam: Present: alert, oriented X3 - Psychiatric Psychiatric exam: Present: normal affect, normal mood - Skin Skin exam: Present: warm, intact Results - Labs CBC & BMP: 02/05/17 04:42 02/06/17 05:00 Specialty Discharge - Follow Up or Referrals
[2017-02-06] MEDS ORDERED: IPRATROPIUM/ALBUTEROL INHALER INH PRN (14:18)
[2017-02-06] MEDS ORDERED: ALBUTEROL/IPRATROPIUM 3 ML NEB RESP TX PRN (14:55)
[2017-02-07] MEDS: GENTAMICIN 0.3% OPH SOLN 5 ML BOTTLE BOTH EYES SCH ×5 (00:45→23:45)
[2017-02-07] MEDS: INSULIN REGULAR 100 UNIT/ML SUBCUT SCH ×4 (00:47→18:30)
[2017-02-07] MEDS: ENALAPRIL 2.5 MG/2 ML VIAL IV SCH ×4 (01:23→16:32)
[2017-02-07] MEDS: PHENYTOIN 100 MG/2 ML VIAL IV SCH ×3 (01:24→18:28)
[2017-02-07] MEDS: methylPREDNISolone SOD SUC 40 MG/1 ML VIAL IV SCH ×2 (05:50→15:20)
[2017-02-07] MEDS: PANTOPRAZOLE 40 MG VIAL IV SCH (09:15)
[2017-02-07] MEDS: ENOXAPARIN 40 MG/0.4 ML SYRINGE SUBCUT SCH (09:15)
[2017-02-07] MEDS: CARVEDILOL 3.125 MG TABLET PO SCH ×2 (09:16→20:35)
[2017-02-07] MEDS: MONTELUKAST 10 MG TABLET PO SCH (09:16)
[2017-02-07] MEDS: CLORAZEPATE 3.75 MG TABLET PO SCH ×3 (09:16→20:34)
[2017-02-07] MEDS: THEOPHYLLINE ER (24 HR) 400 MG CAPSULE PO SCH (09:16)
--- NOTE | 2017-02-07 09:57 | Hospitalist Progress Note ---
Assessment and Plan (1) COPD exacerbation Problem details: Improving when compared to last few days. Appreciate Pulm f/u. Continue current treatment plan. Dc home with home oxygen if continue to improve in am. Status: Acute Assessment and plan: He is significantly improved. I will continue his present medical regimen. Current Visit: Yes (2) Seizure disorder Problem details: Continue home meds Status: Chronic Assessment and plan: He has experienced no seizures in the hospital. I will continue his present medications. Current Visit: No (3) Respiratory failure, [id number] Status: Acute Assessment and plan: As noted above, he required prolonged assisted ventilation. He is progressing slowly since extubation. Current Visit: No Qualifiers: Respiratory failure complication: hypoxia and hypercapnia (4) Right middle lobe pneumonia Status: Acute Assessment and plan: His most recent chest x-ray demonstrated significant improvement since admission. Current Visit: No Qualifiers: Pneumonia type: due to unspecified organism Qualified Code(s): J18.1 - Lobar pneumonia, unspecified organism (5) Weakness Status: Acute Assessment and plan: He is severely debilitated from this illness. He will require placement in a swing bed prior to discharge to home. I have consulted case management. I have consulted physical therapy. Current Visit: Yes Hospitalist: Subjective Interval history: Patient is a 62-year-old man that apparently is a smoker with COPD came in with respiratory failure and has been on the ventilator. He was felt to have pneumonia along with a COPD exacerbation. He apparently has some pulmonary hypertension. He has been treated for heart failure also. He was extubated couple days ago and has done fairly well. He has done well last night and he said he rested fairly well. He feels like his breathing is doing much better. His shortness of breath is improved. He is eating okay and starting to move around a little better. He looks quite stable at present. He will need placement in a swing bed. Exam - Constitutional Vitals: Period Temp Pulse Resp BP Sys/Centeno Pulse Ox Last 24 Hr 97.3 F-98.7 F 76-94 16-25 100-150/62-97 93-100 General appearance: no acute distress - Head Head exam: Present: normal inspection - Neck Neck exam: Present: normal inspection - Respiratory Respiratory exam: Present: clear to auscultation bilaterally - Cardiovascular Cardiovascular exam: Present: regular rate and rhythm - GI/Abdominal GI/Abdominal exam: Present: normal bowel sounds, soft, other (Nontender with no palpable masses or hepatosplenomegaly.) - Extremities Exam Extremities exam: Present: normal inspection - Skin Skin exam: Present: normal color, warm, intact Results - Labs CBC & BMP: 02/05/17 04:42 02/06/17 05:00 Specialty Discharge - Follow Up or Referrals
--- NOTE | 2017-02-07 13:16 | Pulmonology Progress Note ---
Pulmonary - PN: Subj Interval history: Patient is a 62-year-old man that apparently is a smoker with COPD came in with respiratory failure and has been on the ventilator. He was felt to have pneumonia along with a COPD exacerbation. He apparently has some pulmonary hypertension. He has been treated for heart failure also. He was extubated couple days ago and has done fairly well. He says he is feeling better today but he is very weak. His cough and congestion are better. He still has a Huang catheter in place. He thinks he is eating a little better. Overall he feels like he is improving. Exam (Progress Note) - Constitutional Vitals: Period Temp Pulse Resp BP Sys/Centeno Pulse Ox Last 24 Hr 97.3 F-98.2 F 76-94 16-22 100-150/62-97 93-98 Exam: General appearance: no acute distress (The patient is reasonably comfortable at present. He does not have any respiratory distress now.) - Head Head exam: Present: normal inspection, normocephalic - Eye Eye exam: Present: EOMI. Absent: scleral icterus Pupils: Present: SANDIE - ENT ENT exam: Present: normal exam, he does have a narrow hypopharynx. - Neck Neck exam: Absent: lymphadenopathy, meningismus, thyromegaly - Respiratory Respiratory exam: Present: He has fairly good air movement now with prolonged expiration but no wheezing. He looks like he is breathing comfortably. - Cardiovascular Cardiovascular exam: Present: regular rate and rhythm. Absent: gallop, systolic murmur - GI/Abdominal GI/Abdominal exam: Present: normal bowel sounds, distended, soft. Absent: organomegaly, tenderness - Extremities Exam Extremities exam: Absent: calf tenderness, edema, his leg swelling is better and has no signs of phlebitis. - Neurological Exam Neurological exam: Present: alert, oriented X3, CN II-XII intact. Absent: motor sensory deficit - Psychiatric Psychiatric exam: Absent: anxious - Skin Skin exam: Present: warm, dry Results - Labs CBC & BMP: 02/05/17 04:42 02/06/17 05:00 Assessment and Plan (1) Respiratory distress, acute Status: Resolved Assessment and plan: Patient came in with respiratory distress and respiratory failure and has been on the ventilator. He is doing better now is off the ventilator and is fairly stable. He looks more alert and looks like he is breathing much better now. His O2 saturations are stable. His vital signs look good. He did well last night in a regular room. He says he rested well and is breathing okay now. He will start physical therapy and may need a swing bed. Current Visit: No (2) COPD exacerbation Problem details: Improving when compared to last few days. Appreciate Pulm f/u. Continue current treatment plan. Dc home with home oxygen if continue to improve in am. Status: Acute Assessment and plan: Patient is doing better we will continue with steroids and bronchodilator therapy. We will change him over to oral theophylline. He will continue with his present therapy. Current Visit: Yes (3) Seizure disorder Problem details: Continue home meds Status: Chronic Assessment and plan: He is getting seizure medicines but no signs of seizures now. Current Visit: No (4) Pulmonary hypertension Problem details: Appreciate recs from Pulm. Continue current medical treatment regimen. Status: Chronic Assessment and plan: The patient apparently has some pulmonary hypertension from all his many problems. Current Visit: No (5) History of obstructive sleep apnea Status: Acute Assessment and plan: He will need CPAP or BiPAP at night. He does not really want to use CPAP I do not think. Current Visit: No (6) Right middle lobe pneumonia Status: Acute Assessment and plan: His chest x-ray is much better and his lungs are clear now. Clinically he is doing much better. Current Visit: No Qualifiers: Pneumonia type: due to unspecified organism Qualified Code(s): J18.1 - Lobar pneumonia, unspecified organism (7) Hypertension, essential Status: Acute Assessment and plan: Patient will continue with blood pressure medicines. He appears to be hemodynamically stable. Current Visit: Yes Specialty Discharge - Follow Up or Referrals
[2017-02-08] MEDS: INSULIN REGULAR 100 UNIT/ML SUBCUT SCH ×3 (00:10→14:27)
[2017-02-08] MEDS: PHENYTOIN 100 MG/2 ML VIAL IV SCH ×2 (00:52→09:34)
[2017-02-08] MEDS: methylPREDNISolone SOD SUC 40 MG/1 ML VIAL IV SCH (04:14)
[2017-02-08] MEDS: GENTAMICIN 0.3% OPH SOLN 5 ML BOTTLE BOTH EYES SCH ×2 (06:15→11:36)
[2017-02-08] MEDS: CARVEDILOL 3.125 MG TABLET PO SCH (09:30)
[2017-02-08] MEDS: ENOXAPARIN 40 MG/0.4 ML SYRINGE SUBCUT SCH (09:30)
[2017-02-08] MEDS: MONTELUKAST 10 MG TABLET PO SCH (09:30)
[2017-02-08] MEDS: THEOPHYLLINE ER (24 HR) 400 MG CAPSULE PO SCH (09:30)
[2017-02-08] MEDS: CLORAZEPATE 3.75 MG TABLET PO SCH (09:31)
[2017-02-08] MEDS: PANTOPRAZOLE 40 MG VIAL IV SCH (09:31)
--- NOTE | 2017-02-08 10:07 | Discharge Summary ---
Hospital Course - Hospital Course Hospital Course: Mr. Vides is a 61 year old male with past medical history significant for diastolic dysfunction with an EF of 55%, seizures on Dilantin, pulmonary hypertension, COPD, tobacco abuse, morbid obesity, sleep apnea that presented to the ED per EMS and acute hypercapnic and hypoxic respiratory failure requiring intubation per EMS at the scene. Per EMS records the patient's patient was saturating at 72% when they arrived. He does have home O2. ABG upon presentation to the ED ED showed respiratory acidosis with a pH of 7.106 PCO2 of 128 and a PO2 of 216. Chest x-ray showed ET tube tube in adequate position official report pending as well as CTA of lungs. No obvious PE on my view, positive for pulmonary nodules and emphysema. There is no significant volume overload noted. The patient is currently intubated and sedated with the program. Vent settings were assist control with a tidal volume 650 and a rate of 12 FiO2 60% and a PEEP of 5. EKG showed sinus rhythm with a left deviated axis, and a moderate ST depression with a QTC of 4 9. CMP is pending BNP was 33 and there was leukocytosis of 17 noted on CBC. Patient was given Zosyn and vancomycin in the ED. The patient's girlfriend was present but was unsure of basic dosages of medication and did not have the list with her. She states he has not been taking his p.m. dose of Lasix over this last week she also states that he had started feeling bad yesterday and as the day progressed he became more short of breath despite turning up his oxygen and family asked her to call 911 because he could not breathe. He has been admitted to the hospitalist service will be transferred to ICU with a consult pulmonary for vent management. He is hemodynamically stable at this time. Patient was admitted to the intensive care unit. He was seen in consultation by Dr. Souza of pulmonary. Patient was diagnosed with a right lower lobe pneumonia and acute respiratory failure with hypoxemia and hypercapnia. He required prolonged intubation and mechanical ventilation he was treated with intravenous antibiotics including gentamicin and ceftazidime. Patient was subsequently extubated and improved sufficiently to transfer to the medical surgical unit. He was begun on physical therapy; however, at the time of discharge she was not sufficiently strong enough to go home and was discharged to a swing bed unit. Diagnosis - Discharge Diagnosis (1) COPD exacerbation Status: Acute (2) Seizure disorder Status: Chronic (3) Respiratory failure, [id number] Status: Acute (4) Right middle lobe pneumonia Status: Acute (5) Weakness Status: Acute Specialty Discharge - Follow Up or Referrals Discharge Plan - Discharge Data Disposition: Swing Bed, Hos Based, [facility] Condition at Discharge: Stable Discharge Diet: advance to your usual diet Activity: as per physical therapy - Discharge Medications Continue Omeprazole 20 mg PO QAM Carvedilol [Coreg] 3.125 mg PO BID tablet Phenytoin ER Cap [Dilantin Cap] 300 mg PO QAM capsule Phenytoin ER Cap [Dilantin Cap] 100 mg PO QPM capsule Theophylline ER Tab (24 Hr) 400 mg PO DAILY tablet Montelukast Tab [Singulair Tab] 10 mg PO QAM Albuterol/Ipratropium Neb [Duoneb] 3 ml RESP TX TID #90 vial predniSONE TAB [PredniSONE] 20 mg PO DAILY #30 tablet Ipratropium/Albuterol Inhaler [Combivent Respimat Inhaler] 1 puff INH Q6H PRN #0 PRN Reason: Shortness Of Breath/Wheezing Valsartan [Diovan] 80 mg PO QAM Furosemide Tab [Lasix Tab] 40 mg PO BID tablet Spironolactone [Aldactone] 12.5 mg PO QAM Albuterol Inhaler [Proventil Inhaler] 2 puff INH Q4H PRN #0 PRN Reason: Shortness Of Breath/Wheezing Discontinued Levofloxacin Tab [Levaquin Tab] 750 mg PO DAILY #7 tablet - Follow Up or Referral - Forms/Instructions Instructions: How to Stop Smoking (GEN), Cigarette Smoking and Your Health (GEN ), Chronic Obstructive Pulmonary Disease (GEN), COPD Exacerbation, Education Supervisor (GEN) Exam - Constitutional Vitals: Period Temp Pulse Resp BP Sys/Centeno Pulse Ox Last 24 Hr 97.7 F-98.8 F 86-93 20-22 121-152/66-95 90-97 Discharge Results Procedures and tests throughout hospitalization: Pending Orders 01/31/17 AFB Culture/Smears Stat Fungal Culture w/ Prep Stat 02/01/17 AFB Culture/Smears Stat Fungal Culture w/ Prep Stat 02/02/17 AFB Culture/Smears Stat Fungal Culture w/ Prep Stat Labs on day of discharge: Labs from last 24 hours 02/08/17 02/08/17 02/07/17 06:37 00:35 18:26 POC Glucose 119 H 108 H 192 H 02/07/17 11:11 POC Glucose 102 Preliminary micro results at discharge 02/02/17 Unknown Fungal Culture - Preliminary Bronchial Timoteo Lavage Yeast 02/01/17 Unknown Fungal Culture - Preliminary Bronchial Timoteo Lavage Yeast 01/31/17 Unknown Fungal Culture - Preliminary Bronchial Timoteo Lavage Yeast DS: Provider Date of admission: 01/25/17 03:01 Primary care physician: Suzanne Chan MD Attending physician on admission: José Miguel Benitez MD Consults: 01/25/17 03:10 Consult to Physician [CONS] Routine Comment: Consulting Provider: Codey Horton Consulting Provider Notified: Yes When should Consulting Provider be notified: In am Consult to Specialist Group: Pulmonology When should Consulting Provider be notified: In am Person Notified: ABY Date Notified: 01/25/17 Time Notified: 13:00 01/25/17 03:19 Consult to Dietitian [CONS] Routine Reason for Dietitian: TF-Initiate/Manage 01/25/17 03:35 Consult to Pharmacy [CONS] Routine Reason for Pharmacy Consult: Dose/Manage Vancomycin 01/25/17 04:58 Consult to Pulmonary Rehabilitation [CONS] Routine Reason for Pulmonary Rehabilitation: COPD 02/07/17 08:59 Consult to Physical Therapy [CONS] Routine Reason for Physical Therapy: Evaluate and Treat 02/07/17 09:55 Consult to Case Mgmt/Social Srvs [CONS] Routine Reason for Case Mgmt/Social Srvs: Swingbed/SNF/Alf Consult to Physical Therapy [CONS] Routine Reason for Physical Therapy: Evaluate and Treat Discharging clinician: Bob Erickson
[2017-02-08 11:58] VITALS: BP 115/90
--- NOTE | 2017-02-08 13:17 | Pulmonology Progress Note ---
Pulmonary - PN: Subj Interval history: Patient is a 62-year-old man that apparently is a smoker with COPD came in with respiratory failure and has been on the ventilator. He was felt to have pneumonia along with a COPD exacerbation. He apparently has some pulmonary hypertension. He has been treated for heart failure also. He was extubated couple days ago and has done fairly well. He says he is feeling better today but he is very weak. His cough and congestion are better. He is starting to sit up and do more activity. He says his breathing is doing fairly well. He wants to go home but probably needs to go to a swing bed. Exam (Progress Note) - Constitutional Vitals: Period Temp Pulse Resp BP Sys/Centeno Pulse Ox Last 24 Hr 97.7 F-98.8 F 84-93 20-22 115-152/66-90 90-97 Exam: General appearance: no acute distress (The patient is reasonably comfortable at present. He does not have any respiratory distress now.) - Head Head exam: Present: normal inspection, normocephalic - Eye Eye exam: Present: EOMI. Absent: scleral icterus Pupils: Present: SANDIE - ENT ENT exam: Present: normal exam, he does have a narrow hypopharynx. - Neck Neck exam: Absent: lymphadenopathy, meningismus, thyromegaly - Respiratory Respiratory exam: Present: He has fairly good air movement now with prolonged expiration but no wheezing. He seems to be breathing comfortably. - Cardiovascular Cardiovascular exam: Present: regular rate and rhythm. Absent: gallop, systolic murmur - GI/Abdominal GI/Abdominal exam: Present: normal bowel sounds, distended, soft. Absent: organomegaly, tenderness - Extremities Exam Extremities exam: Absent: calf tenderness, edema, his leg swelling is better and has no signs of phlebitis. - Neurological Exam Neurological exam: Present: alert, oriented X3, CN II-XII intact. Absent: motor sensory deficit - Psychiatric Psychiatric exam: Absent: anxious - Skin Skin exam: Present: warm, dry Results - Labs CBC & BMP: 02/05/17 04:42 02/06/17 05:00 Assessment and Plan (1) COPD exacerbation Problem details: Improving when compared to last few days. Appreciate Pulm f/u. Continue current treatment plan. Dc home with home oxygen if continue to improve in am. Status: Acute Assessment and plan: Patient is doing better we will continue with steroids and bronchodilator therapy. He will need to taper steroids as an outpatient and continue bronchodilator therapy. Current Visit: Yes (2) Seizure disorder Problem details: Continue home meds Status: Chronic Assessment and plan: He is getting seizure medicines but no signs of seizures now. Current Visit: No (3) Pulmonary hypertension Problem details: Appreciate recs from Pulm. Continue current medical treatment regimen. Status: Chronic Assessment and plan: The patient has secondary pulmonary hypertension and needs to continue with his breathing medications. Current Visit: No (4) History of obstructive sleep apnea Status: Acute Assessment and plan: He will need CPAP or BiPAP at night. He does not really want to use CPAP I do not think. Current Visit: No (5) Right middle lobe pneumonia Status: Acute Assessment and plan: His chest x-ray is much better and his lungs are clear now. Clinically he is doing much better. He can go to a swing bed at any time. Current Visit: No Qualifiers: Pneumonia type: due to unspecified organism Qualified Code(s): J18.1 - Lobar pneumonia, unspecified organism (6) Hypertension, essential Status: Acute Assessment and plan: Patient will continue with blood pressure medicines. He appears to be hemodynamically stable. Current Visit: Yes Specialty Discharge - Follow Up or Referrals
== END 2017-02-08 14:57 | disposition swing bed (61) | DRG 166 ==
LOC: EDBD → EDUNIT# → N.ED 01:08 → SUATTDRO 03:01 → N.EDINP 03:01 → N.ICU 12:30 → N.2E 02-06 14:11 → UNDODISIN 02-06 14:53 → N.2E 02-07 14:48
PROVIDERS: ADMIT Internal Medicine